=== PATIENT | male | born 1955 | race Caucasian/White ===

== ENCOUNTER 2022-10-28 05:55 | Outpatient (REF) | payer MEDICARE, SELFPAY ==
[2022-10-28 06:00] LABS: MANUAL DIFF FLAG NO
[2022-10-28 06:22] LABS: Basophils Percent Auto 0.5 % (0-2); Eosinophils Absolute Auto 0.4 X10*3/uL (0.0-0.4); Eosinophils Percent Auto 4.5 % (0-4); Hematocrit 38.3 % (42.0-52.0); Imm Gran Abs Auto 0.13 X10*3/uL (0.00-0.03); Imm Gran Pct Auto 1.6 % (0.0-0.4); Lymphocytes Absolute Auto 0.8 X10*3/uL (1.2-4.9); Lymphocytes Percent Auto 9.7 % (20-40); Mean Corpuscular HGB Conc 31.3 g/dl (31.0-36.0); Mean Corpuscular Hemoglobin 28.4 pg (27.0-33.0); Mean Corpuscular Volume 90.8 fL (80.0-98.0); Mean Platelet Volume 9.3 fL (9.4-12.4); Monocytes Absolute Auto 0.5 X10*3/uL (0.1-1.2); Monocytes Percent Auto 5.8 % (2-11); Neutrophils Absolute Auto 6.3 x10*3/uL (2.0-8.3); Neutrophils Percent Auto 77.9 % (45-73); Platelet Count 163 X10*3/uL (160-400); Red Blood Count 4.22 X10*6/uL (4.60-5.80); Red Cell Distribution Width 16.2 % (11.0-16.0); White Blood Count 8.1 X10*3/uL (4.8-10.8)
[2022-10-28 06:44] LABS: Alanine Aminotransferase 8 U/L (0-40); Albumin Level 3.2 g/dL (3.5-5.0); Alkaline Phosphatase 165 U/L (39-117); Anion Gap 17 (12-20); Aspartate Amino Transferase 17 U/L (5-37); Bilirubin Total 0.5 mg/dL (0.0-1.0); Blood Urea Nitrogen 37 mg/dL (9-16); Calcium 9.2 mg/dL (8.4-10.2); Carbon Dioxide 26 mmol/L (22-29); Chloride 97 mmol/L (96-108); Estimated Glomerular Filt Rate 14; Glucose Random 143 mg/dL (60-115); Potassium 4.8 mmol/L (3.3-5.1); Sodium 135 mmol/L (135-145); Total Protein 6.2 g/dL (6.5-8.0)
== END 2022-10-28 05:56 | disposition home or self-care (01) ==
LOC: HO.MMNH1L 05:55
PROVIDERS: Visit Provider Family Medicine
DX: Z02.2 Encounter for examination for admission to residential institution (principal)
CPT/HCPCS: 36415; 80053; 85025

== ENCOUNTER 2022-11-02 06:29 | Outpatient (REF) | payer MEDICARE, SELFPAY ==
[2022-11-02 06:18] LABS: MANUAL DIFF FLAG NO
[2022-11-02 07:08] LABS: Basophils Percent Auto 0.5 % (0-2); Eosinophils Absolute Auto 0.4 X10*3/uL (0.0-0.4); Eosinophils Percent Auto 5.3 % (0-4); Hematocrit 37.7 % (42.0-52.0); Hemoglobin 11.8 g/dl (14.0-18.0); Imm Gran Abs Auto 0.06 X10*3/uL (0.00-0.03); Imm Gran Pct Auto 0.8 % (0.0-0.4); Lymphocytes Percent Auto 13.1 % (20-40); Mean Corpuscular HGB Conc 31.3 g/dl (31.0-36.0); Mean Corpuscular Hemoglobin 28.3 pg (27.0-33.0); Mean Corpuscular Volume 90.4 fL (80.0-98.0); Mean Platelet Volume 9.3 fL (9.4-12.4); Monocytes Absolute Auto 0.5 X10*3/uL (0.1-1.2); Monocytes Percent Auto 6.6 % (2-11); Neutrophils Absolute Auto 5.7 x10*3/uL (2.0-8.3); Neutrophils Percent Auto 73.7 % (45-73); Platelet Count 177 X10*3/uL (160-400); Red Blood Count 4.17 X10*6/uL (4.60-5.80); White Blood Count 7.8 X10*3/uL (4.8-10.8)
[2022-11-02 07:49] LABS: Anion Gap 13 (12-20); Blood Urea Nitrogen 39 mg/dL (9-16); Calcium 8.7 mg/dL (8.4-10.2); Carbon Dioxide 33 mmol/L (22-29); Chloride 93 mmol/L (96-108); Estimated Glomerular Filt Rate 15; Glucose Random 57 mg/dL (60-115); Potassium 3.6 mmol/L (3.3-5.1); Sodium 135 mmol/L (135-145)
== END 2022-11-02 06:30 | disposition home or self-care (01) ==
LOC: HO.MMNH1L 06:29
PROVIDERS: Visit Provider Family Medicine
DX: Z02.2 Encounter for examination for admission to residential institution (principal)
CPT/HCPCS: 36415; 80048; 85025

== ENCOUNTER 2022-11-05 05:50 | Emergency (ER) | payer MEDICARE, SELFPAY ==
--- NOTE | ~2022-11-05 | XR_ITS ---
EXAMINATION: XR CHEST CLINICAL INFORMATION: Altered mental status COMPARISON: None TECHNIQUE: Frontal view of the chest was obtained. FINDINGS: Right internal jugular central venous catheter terminates over the right atrium. Cardiac leads overlie the chest. The lungs are well expanded. No dense consolidation. No edema or effusion. No pneumothorax. The cardiomediastinal silhouette is within normal limits. No acute osseous abnormality. XR/XR chest 1V IMPRESSION: No acute pulmonary disease.
[2022-11-05 06:00] VITALS: BP 106/70; BP 173/59; PULSE 73; PULSE 80; RESP 20; TEMP 33.3; O2SAT 100; O2SAT 95; BMI 28.2
[2022-11-05 06:00] LABS: Glucose, Whole Blood 58 mg/dL (60-115)
--- NOTE | 2022-11-05 06:11 | ED_ITS ---
HPI - Altered Mental Status General Chief Complaint: General Medical Stated Complaint: low bs Time Seen by Provider: 11/05/22 06:07 Source: EMS and RN notes reviewed Mode of arrival: EMS Limitations: altered mental status History of Present Illness HPI narrative: Patient diabetic, end-stage renal disease on dialysis, hypertension nonhealing wound on the right foot on Lantus insulin 35 units at bedtime came from skilled nursing as was found unresponsive in his bed with noticed to have blood sugar 52 was given D10 and patient became combative after then but when he came to the ER patient was back to normal no signs of seizures no fall or head injury patient had dialysis on Wednesday, and Wednesday no other active complaints no fever no cough no shortness of breath no abdominal pain no nausea vomiting on arrival patient noticed to have temperature of 91.9 degree F Related Data Allergies Allergy/AdvReac Type Severity Reaction Status Date / Time No Known Allergies Allergy Verified 11/05/22 06:12 Review of Systems Review of Systems: Yes all other systems are reviewed and are negative [facility] Social History Social History Smoked in Last 30 Days: No Use of substances other than those prescribed or required for medical reasons: No Advance Directives: Yes Advance Directives Information Provided: No Advance Directives on File: No Physical Exam ED Vital Signs: Vital Signs - 24 hr 11/05/22 06:00 11/05/22 07:00 Temperature 91.9 F L Pulse Rate 73 68 Respiratory Rate 20 16 Blood Pressure 173/59 H 143/68 H Pulse Oximetry 95 99 Oxygen Delivery Method Room Air Room Air BMI result Body Mass Index 28.2 Appearance: Alert. Oriented X2-3. No acute distress. Eyes: PERRLA, No Nystagmus ENT: Pharynx normal. Oral Mucosa moist Neck: Normal inspection. Neck supple. CVS: Normal heart rate and rhythm. Pulses normal. Respiratory: No respiratory distress. Equal air entry bilateral, no wheezing/rales/rhonchi Abdomen: Soft and nontender. Bowel sounds are present, no mass palpable, no CVA tenderness Skin: Skin warm and dry. Normal skin color. Normal skin turgor. Extremities: No lower extremity edema. No calf tenderness Neuro: Oriented X 2-3. No motor deficit. No sensory deficit.No cerebellar signs , cranial nerves II-XII intact Medical Decision Making Medical Decision Making [facility] Narrative: Patient diabetic with hyperglycemia and change in mental status etiology not very clear normal CBC count patient does have wound VAC on the right leg which does not look infected patient normal lactic acid level repeat blood sugar was [address] Ann for further evaluation disposition at this time there is no source of infection except the healing right leg wound likely patient had IV license secondary to poor oral intake Lab Data [facility] Lab Attestation statement: I reviewed the patient's lab results. 11/05/22 06:27 11/05/22 06:24 Labs: Lab Results 11/05/22 11/05/22 11/05/22 Range/Units 05:57 06:22 06:23 WBC (4.8-10.8) X10*3/uL RBC (4.60-5.80) X10*6/uL Hgb (14.0-18.0) g/dl Hct (42.0-52.0) % MCV (80.0-98.0) fL MCH (27.0-33.0) pg MCHC (31.0-36.0) g/dl RDW (11.0-16.0) % Plt Count (160-400) X10*3/uL MPV (9.4-12.4) fL Immature Gran % (Auto) (0.0-0.4) % Neut % (Auto) (45-73) % Lymph % (Auto) (20-40) % Mchenry % (Auto) (2-11) % Eos % (Auto) (0-4) % Baso % (Auto) (0-2) % Lymph # (Auto) (1.2-4.9) X10*3/uL Mchenry # (Auto) (0.1-1.2) X10*3/uL Eos # (Auto) (0.0-0.4) X10*3/uL Baso # (Auto) (0.0-0.2) X10*3/uL Abs Immat Gran (auto) (0.00-0.03) X10*3/uL Absolute Neuts (auto) (2.0-8.3) x10*3/uL Absolute Nucleated RBC (0.0-0.012) X10*3/uL Nucleated RBC % (auto) (0.0-0.2) /100WBC Sodium (135-145) mmol/L Potassium (3.3-5.1) mmol/L Chloride (96-108) mmol/L Carbon Dioxide (22-29) mmol/L Anion Gap (12-20) BUN (9-16) mg/dL Creatinine (0.5-1.4) mg/dL Estim Creat Clear Calc Estimated GFR POC Glucose 58 L* 132 H (60-115) mg/dL Random Glucose (60-115) mg/dL Lactic Acid (0.5-2.0) mmol/L Calcium (8.4-10.2) mg/dL Total Bilirubin (0.0-1.0) mg/dL AST (5-37) U/L ALT (0-40) U/L Alkaline Phosphatase (39-117) U/L Total Protein (6.5-8.0) g/dL Albumin (3.5-5.0) g/dL Ethyl Alcohol mg/dL Influenza Type A (PCR) NEGATIVE (Negative) Influenza Type B (PCR) NEGATIVE (Negative) RSV RNA Qual (PCR) NEGATIVE (Negative) SARS-CoV-2 RNA (RT-PCR) NEGATIVE (Negative) 11/05/22 11/05/22 11/05/22 Range/Units 06:24 06:26 06:27 WBC 9.3 (4.8-10.8) X10*3/uL RBC 5.31 D (4.60-5.80) X10*6/uL Hgb 15.0 D (14.0-18.0) g/dl Hct 47.6 D (42.0-52.0) % MCV 89.6 (80.0-98.0) fL MCH 28.2 (27.0-33.0) pg MCHC 31.5 (31.0-36.0) g/dl RDW 17.7 H (11.0-16.0) % Plt Count 193 (160-400) X10*3/uL MPV 8.2 L (9.4-12.4) fL Immature Gran % (Auto) 1.3 H (0.0-0.4) % Neut % (Auto) 80.4 H (45-73) % Lymph % (Auto) 9.9 L (20-40) % Mchenry % (Auto) 3.5 (2-11) % Eos % (Auto) 4.4 H (0-4) % Baso % (Auto) 0.5 (0-2) % Lymph # (Auto) 0.9 L (1.2-4.9) X10*3/uL Mchenry # (Auto) 0.3 (0.1-1.2) X10*3/uL Eos # (Auto) 0.4 (0.0-0.4) X10*3/uL Baso # (Auto) 0.1 (0.0-0.2) X10*3/uL Abs Immat Gran (auto) 0.12 H (0.00-0.03) X10*3/uL Absolute Neuts (auto) 7.5 (2.0-8.3) x10*3/uL Absolute Nucleated RBC 0.000 (0.0-0.012) X10*3/uL Nucleated RBC % (auto) 0.0 (0.0-0.2) /100WBC Sodium 132 L (135-145) mmol/L Potassium 5.6 H D (3.3-5.1) mmol/L Chloride 93 L (96-108) mmol/L Carbon Dioxide 27 (22-29) mmol/L Anion Gap 18 (12-20) BUN 50 H (9-16) mg/dL Creatinine 4.82 H* (0.5-1.4) mg/dL Estim Creat Clear Calc 14.7 Estimated GFR 12 POC Glucose (60-115) mg/dL Random Glucose 143 H (60-115) mg/dL Lactic Acid (0.5-2.0) mmol/L Calcium 10.0 D (8.4-10.2) mg/dL Total Bilirubin 0.6 (0.0-1.0) mg/dL AST 33 (5-37) U/L ALT 16 (0-40) U/L Alkaline Phosphatase 175 H (39-117) U/L Total Protein 7.7 (6.5-8.0) g/dL Albumin 4.0 (3.5-5.0) g/dL Ethyl Alcohol < 10 mg/dL Influenza Type A (PCR) (Negative) Influenza Type B (PCR) (Negative) RSV RNA Qual (PCR) (Negative) SARS-CoV-2 RNA (RT-PCR) (Negative) 11/05/22 Range/Units 06:27 WBC (4.8-10.8) X10*3/uL RBC (4.60-5.80) X10*6/uL Hgb (14.0-18.0) g/dl Hct (42.0-52.0) % MCV (80.0-98.0) fL MCH (27.0-33.0) pg MCHC (31.0-36.0) g/dl RDW (11.0-16.0) % Plt Count (160-400) X10*3/uL MPV (9.4-12.4) fL Immature Gran % (Auto) (0.0-0.4) % Neut % (Auto) (45-73) % Lymph % (Auto) (20-40) % Mchenry % (Auto) (2-11) % Eos % (Auto) (0-4) % Baso % (Auto) (0-2) % Lymph # (Auto) (1.2-4.9) X10*3/uL Mchenry # (Auto) (0.1-1.2) X10*3/uL Eos # (Auto) (0.0-0.4) X10*3/uL Baso # (Auto) (0.0-0.2) X10*3/uL Abs Immat Gran (auto) (0.00-0.03) X10*3/uL Absolute Neuts (auto) (2.0-8.3) x10*3/uL Absolute Nucleated RBC (0.0-0.012) X10*3/uL Nucleated RBC % (auto) (0.0-0.2) /100WBC Sodium (135-145) mmol/L Potassium (3.3-5.1) mmol/L Chloride (96-108) mmol/L Carbon Dioxide (22-29) mmol/L Anion Gap (12-20) BUN (9-16) mg/dL Creatinine (0.5-1.4) mg/dL Estim Creat Clear Calc Estimated GFR POC Glucose (60-115) mg/dL Random Glucose (60-115) mg/dL Lactic Acid 1.1 (0.5-2.0) mmol/L Calcium (8.4-10.2) mg/dL Total Bilirubin (0.0-1.0) mg/dL AST (5-37) U/L ALT (0-40) U/L Alkaline Phosphatase (39-117) U/L Total Protein (6.5-8.0) g/dL Albumin (3.5-5.0) g/dL Ethyl Alcohol mg/dL Influenza Type A (PCR) (Negative) Influenza Type B (PCR) (Negative) RSV RNA Qual (PCR) (Negative) SARS-CoV-2 RNA (RT-PCR) (Negative) Discharge Plan Discharge Clinical Impression: Hypoglycemia associated with type 2 diabetes mellitus, Hypothermia Patient Disposition: Still a Patient
[2022-11-05 06:33] LABS: Glucose, Whole Blood 132 mg/dL (60-115)
--- NOTE | 2022-11-05 06:35 | PC.NURSE ---
this rn assumed care of pt @ 0600. pt given 3 orange juices at this time. pt placed in bear hugger. rectal temp 91.9. blood work obtained and sent down to lab. POC rechecked 132. Dr Valverde made aware. no new orders at this time
[2022-11-05 06:36] LABS: MANUAL DIFF FLAG NO
[2022-11-05 06:41] LABS: Basophils Absolute Auto 0.1 X10*3/uL (0.0-0.2); Basophils Percent Auto 0.5 % (0-2); Eosinophils Absolute Auto 0.4 X10*3/uL (0.0-0.4); Eosinophils Percent Auto 4.4 % (0-4); Hematocrit 47.6 % (42.0-52.0); Imm Gran Abs Auto 0.12 X10*3/uL (0.00-0.03); Imm Gran Pct Auto 1.3 % (0.0-0.4); Lymphocytes Absolute Auto 0.9 X10*3/uL (1.2-4.9); Lymphocytes Percent Auto 9.9 % (20-40); Mean Corpuscular HGB Conc 31.5 g/dl (31.0-36.0); Mean Corpuscular Hemoglobin 28.2 pg (27.0-33.0); Mean Corpuscular Volume 89.6 fL (80.0-98.0); Mean Platelet Volume 8.2 fL (9.4-12.4); Monocytes Absolute Auto 0.3 X10*3/uL (0.1-1.2); Monocytes Percent Auto 3.5 % (2-11); Neutrophils Absolute Auto 7.5 x10*3/uL (2.0-8.3); Neutrophils Percent Auto 80.4 % (45-73); Platelet Count 193 X10*3/uL (160-400); Red Blood Count 5.31 X10*6/uL (4.60-5.80); Red Cell Distribution Width 17.7 % (11.0-16.0); White Blood Count 9.3 X10*3/uL (4.8-10.8)
[2022-11-05 06:45] LABS: Lactic Acid 1.1 mmol/L (0.5-2.0)
[2022-11-05 07:00] VITALS: BP 143/68; PULSE 68; RESP 16; O2SAT 99
[2022-11-05 07:10] LABS: Influenza A PCR NEGATIVE (Negative); Influenza B PCR NEGATIVE (Negative); Resp Syncy Virus RNA Qual PCR NEGATIVE (Negative); SARS COV2 PCR INHOUSE NEGATIVE (Negative)
--- OUTSIDE RECORDS SUMMARY | 2022-11-05 07:15 | XMS_ITS | Continuity of Care Document ---
:1955 Author Organization [facility] Address [address] [place] [address]- Care Team Providers Name Role Phone Not on Staff, PCP Primary Care Physician Unavailable Encounter [facility] Date(s): 06/15/22 - 08/28/22 [facility] [address] [place], [place] [address] Attending Physician: Nakul KUMAR, Torsten Patrick Admitting Physician: Nakul KUMAR, Torsten Patrick Referring Physician: Nakul KUMAR, Torsten Patrick Allergies, Adverse Reactions, Alerts No Known Medication Allergies Immunizations Given and Recorded Vaccine Date Status Refusal Reason SARS-CoV-2 (COVID-19) mRNA-1273 vaccine 09/29/21 Recorded SARS-CoV-2 (COVID-19) mRNA-1273 vaccine 03/10/21 Recorded SARS-CoV-2 (COVID-19) mRNA-1273 vaccine 02/10/21 Recorded influenza virus vaccine, inactivated 07/20/19 Recorded influenza virus vaccine, inactivated 08/16/17 Recorded Medications allopurinol 100 mg oral tablet 1 tab, By Mouth, 2 times a day Start Date: 02/26/21 Status: OrderedAspirin Enteric Coated 81 mg oral delayed release tablet 1 tablet = 81 mg, By Mouth, Daily in AM, TAKE 1 TABLET BY MOUTH ONCE A DAY Start Date: 02/26/21 Status: Orderedatorvastatin 20 mg oral tablet 1 tablet = 20 mg, By Mouth, Daily at bedtime Start Date: 02/26/21 Status: OrderedBasaglar KwikPen 100 units/mL subcutaneous solution INJECT 35 UNITS SUBCUTANEOUSLY ONCE A DAY 5 am Start Date: 02/26/21 Status: Orderedbumetanide 2 mg oral tablet See Instructions, TAKE 1 TABLET BY MOUTH TWICE A DAY, # 180 tablet, 1 Refills, Maintenance, 08/13/2216:15:00 EDT, [id number], 168, cm, 06/25/22 15:37:00 EDT, Height, 90.8, kg, 04/27/22 16:09:00 EDT, Dry Weight Start Date: 08/13/22 Status: Orderedcalcium acetate 667 mg oral capsule See Instructions, TAKE 1 CAPSULE BY MOUTH 3 TIMES A DAY WITH EACH MEAL, # 270 capsule, 1 Refills, [id number], 167, cm, 03/18/22 8:43:00 EDT, Height, 90.8, kg, 03/18/22 8:43:00 EDT, Dry Weight Start Date: 04/06/22 Status: Orderedcarvedilol 25 mg oral tablet 25 mg, 1, tablet, By Mouth, 2 times a day Start Date: 02/26/21 Status: Orderedglimepiride 4 mg oral tablet 2 tablet = 8 mg, By Mouth, Daily in AM Start Date: 02/26/21 Status: OrderedPlavix 75 mg oral tablet 75 mg, 1, tablet, By Mouth, Daily, # 30 tablet, Refills 2, Tot. Refills 2, Maintenance, 05/02/22 8:00:00 EDT, Route to Pharmacy Electronically, [facility]/pharmacy #[id number], Partial fill upon patient request if the prescription is for a schedule II opioid drug.... Start Date: 05/02/22 Stop Date: 07/31/22 Status: Orderedtamsulosin 0.4 mg oral capsule 0.4 mg, 1, capsule, By Mouth, Daily, Refills 0, Maintenance, 04/21/22 11:46:00 EDT, Partial fill upon patient request if the prescription is for a schedule II opioid drug. Start Date: 04/21/22 Status: Ordered Problem List Condition Confirmation Course Effective Dates Status Health Stat us Informant End-stage renal Confirmed Active disease1 Obese class I Confirmed Active Peripheral Confirmed Active vascular disease 1ARA Deidra ARELLANO,KHADAR,SAT Patient Care team information Care Team PersonnelName: Sharlene Castorena RN Position: [facility] RN Member Role: Primary Care Nurse Name: Lalito Arteaga RN Position: [facility] RN Member Role: Primary Care Nurse Name: Chucho Navarro MD Position: [facility] Physician (General Medicine) Member Role: Lifetime Consulting Physician Address: Address: [address] [place] [address], [address] Name: Jaz Milligan Position: [facility] Outreach Member Role: Lifetime Consulting Physician Name: Eileen CORTES, Ace Le Position: [facility] Associate Professional Member Role: Lifetime Consulting Provider Address: Address: [address] [place] [address] Name: Not on Staff, PCP Position: [facility] Physician (General Medicine) Member Role: PCP Name: Ruby Negrete Position: [facility] Outreach Member Role: Lifetime Consulting Physician Name: Sunil Mosher MD Position: [facility] Renal MD Member Role: Lifetime Consulting Physician Address: Address: [address] [place] [address] [address] [facility], [place] [address]- Care Team Related PersonsName: TYLER IRIZARRY Address: home [address] [place] [address] Name: TERESA LIM Address: home [address] [place] [address]
--- OUTSIDE RECORDS SUMMARY | 2022-11-05 07:15 | XMS_ITS | Continuity of Care Document ---
:1955 Author Organization [facility] Address [address] [place] [address]- Care Team Providers Name Role Phone Not on Staff, PCP Primary Care Physician Unavailable Encounter [facility] Date(s): 06/04/22 - 06/11/22 [facility] [address] [place], [place] [address] Attending Physician: Torsten Mota MD Admitting Physician: Torsten Mota MD Allergies, Adverse Reactions, Alerts No Known Medication [...] 02/26/21 Status: Orderedbumetanide 2 mg oral tablet 1 tablet = 2 mg, By Mouth, 2 times a day, 0 Refills, Maintenance, 09/01/21 16:37:00 EST, Partial fill upon patient request if the prescription is for a schedule II opioid drug. Start Date: 09/01/21 Status: Orderedcalcium acetate 667 mg oral capsule See Instructions, TAKE 1 CAPSULE BY MOUTH 3 TIMES A DAY WITH EACH MEAL, # 270 capsule, 1 Refills, [id number], 167, cm, 03/18/22 8:43:00 EDT, Height, 90.8, [...] 05/02/22 8:00:00 EDT, Route to Pharmacy Electronically, [facility]/pharmacy #[id number], Partial fill upon patient request if the prescription is for a schedule II opioid drug.... Start Date: 05/02/22 Stop Date: 07/31/22 Status: OrderedSenexon-S 50 mg-8.6 mg oral tablet 2 tablet, By Mouth, Daily at bedtime, 0 Refills, Maintenance, 04/21/22 11:48:00 EDT, Partial fill upon patient request if the prescription is for a schedule II opioid drug. Start Date: 04/21/22 Status: Orderedtamsulosin 0.4 mg oral capsule 0.4 mg, 1, capsule, By Mouth, Daily, Refills 0, Maintenance, 04/21/22 11:46:00 EDT, Partial fill upon patient request if the prescription is for a schedule II opioid drug. Start Date: 04/21/22 Status: Ordered Problem List Condition Effective Dates Status Health Status Informant End-stage renal disease(Confirmed)1 Active Obese class I(Confirmed) Active Peripheral vascular disease(Confirmed) Active 1ARA Deidra TU,TH,SAT Vital Signs Most recent to oldest [Reference Range]: 1 Height 168 cm (06/04/22 3:42 PM) Weight 88.5 kg (06/04/22 3:42 PM) Pulse Rate [55-90 bpm] 58 bpm (06/04/22 3:42 PM) Body Mass Index [18.5-24.99] 31.36 *>HHI* (06/04/22 3:42 PM) Blood Pressure [90-138/55-84 mm Hg] 112/60 mm Hg (06/04/22 3:42 PM) Blood pressure sites Arm, right (06/04/22 3:42 PM) Weight Obtained Via Patient/family stated (06/04/22 3:42 PM) Care Team PersonnelName: Not on Staff, PCP
--- OUTSIDE RECORDS SUMMARY | 2022-11-05 07:15 | XMS_ITS | Continuity of Care Document ---
:1955 Author Organization [facility] Address [address] [place] [address]- Care Team Providers Name Role Phone Guillermina KUMAR, Chay Primary Care Physician Unavailable [place] [facility] Date(s): 09/09/21 - 10/09/21 [facility] [address] [place] [address]- Allergies, Adverse Reactions, Alerts No Known Medication Allergies Medications allopurinol 100 mg oral tablet 1 [...] II opioid drug. Start Date: 09/01/21 Status: Orderedcarvedilol 25 mg oral tablet 25 mg, 1, tablet, By Mouth, 2 times a day Start Date: 02/26/21 Status: Orderedglimepiride 4 mg oral tablet 2 tablet = 8 mg, By Mouth, Daily, TAKE 1 TABLET BY MOUTH 5am Start Date: 02/26/21 Status: OrderedmetOLazone 10 mg oral tablet 1 tablet = 10 mg, By Mouth, Daily, # 30 tablet, 0 Refills, Maintenance, 09/01/21 16:36:00 EST, Tablet, Partial fill upon patient request if the prescription is for a schedule II opioid drug. Start Date: 09/01/21 Status: OrderedPlavix 75 mg oral tablet 75 mg, 1, tablet, By Mouth, Daily, # 30 tablet, Refills 0, Tot. Refills 0, Maintenance, 03/28/21 9:22:00 EDT, Route to Pharmacy Electronically, [facility], 167.64, cm, 03/28/21 6:14:00 EDT, Height, 99.7, kg, 03/28/21 6:14:00 EDT, Dry Weight Start Date: 03/28/21 Status: OrderedSlow-Mag 119 mg-71.5 mg oral delayed release tablet 2 tablet, By Mouth, 2 times a day, 0 Refills, Maintenance, 09/01/21 16:38:00 EST, Partial fill upon patient request if the prescription is for a schedule II opioid drug. Start Date: 09/01/21 Status: OrderedVitamin C 500 mg oral tablet 1 tablet = 500 mg, By Mouth, Daily in AM, # 30 tablet, 0 Refills, Maintenance, 02/26/21 16:36:00 EDT, Tablet, Partial fill upon patient request if the prescription is for a schedule II opioid drug. Start Date: 02/26/21 Status: OrderedVitamin D2 2000 intl units oral capsule 1 capsule = 2,000 International_Units, By Mouth, Daily, with food, # 60 capsule, 0 Refills, Maintenance, 04/09/21 15:09:00 EDT, Capsule, Partial fill upon patient request if the prescription is for a schedule II opioid drug. Start Date: 04/09/21 Status: Ordered
--- OUTSIDE RECORDS SUMMARY | 2022-11-05 07:16 | XMS_ITS | Continuity of Care Document ---
:1955 Author Organization [facility] Address [address] [place] [address]- Care Team Providers Name Role Phone Not on Staff, PCP Primary Care Physician Unavailable Encounter [facility] Date(s): 04/08/22 - 04/15/22 [facility] [address] [place], [place] [address] Attending Physician: Nakul KUMAR, Torsten Patrick Admitting Physician: Torsten Mota MD Referring Physician: Not on Staff, Referring MD Allergies, Adverse Reactions, Alerts No Known [...] EACH MEAL, # 270 capsule, 1 Refills, [facility], 167, cm, 03/18/22 8:43:00 EDT, Height, 90.8, kg, 03/18/22 8:43:00 EDT, Dry Weight Start Date: 04/06/22 Status: Orderedcarvedilol 25 mg oral tablet 25 mg, 1, tablet, By Mouth, 2 times a day Start Date: 02/26/21 Status: Orderedglimepiride 4 mg oral tablet 2 tablet = 8 mg, By Mouth, Daily in AM Start Date: 02/26/21 Status: OrderedVitamin D2 2000 intl units oral capsule 1 capsule = 2,000 International_Units, By Mouth, Daily, with food, # 60 capsule, 0 Refills, Maintenance, 04/09/21 15:09:00 EDT, Capsule, Partial fill upon patient request if the prescription is for a schedule II opioid drug. Start Date: 04/09/21 Status: Ordered Problem List Condition Effective Dates Status Health Status Informant End-stage renal disease(Confirmed)1 Active Obese class I(Confirmed) Active 1ARA Deidra TU,TH,SAT Vital Signs Most recent to oldest [Reference Range]: 1 Height 167 cm (04/08/22 11:18 AM) Weight 94.9 kg (04/08/22 11:18 AM) Pulse Rate [55-90 bpm] 72 bpm (04/08/22 11:18 AM) Body Mass Index [18.5-24.99] 34.03 *>HHI* (04/08/22 11:18 AM) Blood Pressure [90-138/55-84 mm Hg] 106/70 mm Hg (04/08/22 11:18 AM) Blood pressure sites Arm, left (04/08/22 11:18 AM) Weight Obtained Via Patient/family stated (04/08/22 11:18 AM)
--- OUTSIDE RECORDS SUMMARY | 2022-11-05 07:16 | XMS_ITS | Continuity of Care Document ---
:1955 Author Organization [facility] Address [address] [place] [address]- Care Team Providers Name Role Phone Not on Staff, PCP Primary Care Physician Unavailable Encounter [facility] Date(s): 02/06/22 - 02/06/[address] [address] Discharge Disposition: A-D/C Home Attending Physician: Nakul KUMAR, Torsten Patrick Admitting Physician: Nakul KUMAR, Torsten Patrick Referring Physician: Torsten Mota MD Allergies, Adverse Reactions, Alerts No Known Medication Allergies Medications acetaminophen 325 mg oral tablet 650 mg, By Mouth, Every 4 hours, PRN, for 5 days, not to exceed 4000 mg/day, # 30 tablet, Refills 0,Tot. Refills 0, Acute 02/11/22 9:52:00 EDT, Pain , Mild, 02/06/22 9:52:00 EDT, Route to Pharmacy Electronically, [facility], Partial damien... Start Date: 02/06/22 Stop Date: 02/11/22 Status: Orderedallopurinol 100 mg oral tablet 1 tab, By [...] Orderedcarvedilol 25 mg oral tablet 25 mg, Tablet, By Mouth, Once, Pre-op, STAT, 02/06/22 7:04:00 EDT, Stop date 02/06/22 7:04:00 EDT Start Date: 02/06/22 Stop Date: 02/06/22 Status: Completedcarvedilol 25 mg oral tablet 25 mg, 1, tablet, By Mouth, 2 times a day Start Date: 02/26/21 Status: Orderedglimepiride 4 mg oral tablet 2 tablet = 8 mg, By Mouth, Daily in AM Start Date: 02/26/21 Status: OrderedoxyCODONE 5 mg oral tablet 5 mg, 1, tablet, By Mouth, Every 6 hours, PRN, for 2 days, do not drive while taking narcotic pain medications, # 8 tablet, Refills 0, Tot. Refills 0, Acute 02/08/22 9:52:00 EDT, Pain , Moderate, 02/06/22 9:52:00 EDT, Route to Pharmacy Electronically,... Start Date: 02/06/22 Stop Date: 02/08/22 Status: OrderedSlow-Mag 119 mg-71.5 mg oral delayed release tablet 2 tablet, By Mouth, 2 times a day, 0 Refills, Maintenance, 09/01/21 16:38:00 EST, Partial fill upon patient request if the prescription is for a schedule II opioid drug. Start Date: 09/01/21 Status: OrderedVitamin D2 2000 intl units oral capsule 1 capsule = 2,000 International_Units, By Mouth, Daily, with food, # 60 capsule, 0 Refills, Maintenance, 04/09/21 15:09:00 EDT, Capsule, Partial fill upon patient request if the prescription is for a schedule II opioid drug. Start Date: 04/09/21 Status: Ordered Problem List Condition Effective Dates Status Health Status Informant Obese class I(Confirmed) Active Vital Signs Most recent to oldest 1 2 3 [Reference Range]: Height 167 cm 167 cm 167 cm (02/06/22 6:18 AM) (02/03/22 4:15 PM) (12/03/21 5:2 9 PM) Weight 92.4 kg 91.1 kg (02/06/22 6:18 AM) (02/03/22 4:15 PM) Oxygen Saturation 98 % 98 % 97 % [94-100 %] (02/06/22 11:00 AM) (02/06/22 10:45 AM) (02/06/22 1 0:30 AM) Pulse Rate [55-90 bpm] 72 bpm 72 bpm (02/06/22 7:06 AM) (02/06/22 6:18 AM) Body Mass Index 33.13 32.67 [18.5-24.99] *>HHI* *>HHI* (02/06/22 6:18 AM) (02/03/22 4:15 PM) Blood Pressure 117/90 mm Hg 115/80 mm Hg 111/69 mm Hg [90-138/55-84 mm Hg] (02/06/22 11:00 AM) (02/06/22 10:45 AM) (02/06 10:30 AM) Respiratory Rate [16-30 17 br/min 16 br/min 21 br/mi n br/min] (02/06/22 11:00 AM) (02/06/22 10:45 AM) (02/06/22 1 0:30 AM) Temperature [96.8-100.4 97.1 DegF 97.8 DegF 97.9 Deg F DegF] (02/06/22 11:00 AM) (02/06/22 10:00 AM) (02/06/22 6 :18 AM) Liters per Minute 4 L/min (02/06/22 10:00 AM) Mode of Delivery Room air Room air Simple face mas k (Oxygen) (02/06/22 11:00 AM) (02/06/22 10:30 AM) (02/06/22 1 0:00 AM) Blood pressure sites Arm, right Arm, right Arm, right (02/06/22 11:00 AM) (02/06/22 10:00 AM) (02/06/22 6 :18 AM) Temperature Route Temporal Temporal Temporal (02/06/22 11:00 AM) (02/06/22 10:00 AM) (02/06/22 6 :18 AM) Dry Weight 91.1 kg (02/03/22 4:15 PM) Weight Obtained Via Standing scale Patient/family stated (02/06/22 6:18 AM) (02/03/22 4:15 PM) Dry Weight Obtained Via Patient/family stated (02/03/22 4:15 PM)
--- OUTSIDE RECORDS SUMMARY | 2022-11-05 07:16 | XMS_ITS | Continuity of Care Document ---
:1955 Author Organization [facility] Address [address] [place] [address]- Care Team Providers Name Role Phone Not on Staff, PCP Primary Care Physician Unavailable Encounter [facility] Date(s): 06/25/22 - 07/02/22 [facility] [address] [place] [address]- Attending Physician: Torsten Mota MD Admitting Physician: [...] EACH MEAL, # 270 capsule, 1 Refills, [id number], 167, cm, 03/18/22 8:43:00 EDT, Height, 90.8, [...] 8:00:00 EDT, Route to Pharmacy Electronically, [facility]/pharmacy #[id number], Partial fill upon patient request if [...] oldest [Reference Range]: 1 Height 168 cm (06/25/22 3:37 PM) Weight 88.45 kg (06/25/22 3:37 PM) Oxygen Saturation [94-100 %] 97 % (06/25/22 3:37 PM) Pulse Rate [55-90 bpm] 72 bpm (06/25/22 3:37 PM) Body Mass Index [18.5-24.99] 31.34 *>HHI* (06/25/22 3:37 PM) Blood Pressure [90-138/55-84 mm Hg] 120/72 mm Hg (06/25/22 3:37 PM) Mode of Delivery (Oxygen) Room air (06/25/22 3:37 PM) Blood pressure sites Arm, right (06/25/22 3:37 PM) Weight Obtained Via Patient/family stated (06/25/22 3:37 PM) Care Team PersonnelName: Not on Staff, PCP
--- OUTSIDE RECORDS SUMMARY | 2022-11-05 07:16 | XMS_ITS | Continuity of Care Document ---
:1955 Author Organization [facility] Address [address] [place] [address]- Care Team Providers Name Role Phone Not on Staff, PCP Primary Care Physician Unavailable Encounter [facility] [place] Date(s): 08/21/21 - 08/28/21 [facility] [address] [place] [address]- Attending Physician: Nakul KUMAR, Torsten Patrick Admitting Physician: Nakul KUMAR, Torsten Patrick Referring Physician: Chay Sarmiento MD Allergies, Adverse Reactions, Alerts No Known Medication Allergies Medications allopurinol 100 mg oral tablet 1 tab, By Mouth, 2 times a day Start Date: 02/26/21 Status: OrderedamLODIPine 5 mg oral tablet Daily in AM, TAKE 1 TABLET BY MOUTH EVERY DAY Start Date: 02/26/21 Status: OrderedAspirin Enteric Coated 81 mg oral delayed release tablet Daily in AM, TAKE 1 TABLET BY MOUTH ONCE A DAY Start Date: 02/26/21 Status: Orderedatorvastatin 20 mg oral tablet TAKE 1 TABLET BY MOUTH EVERYDAY AT BEDTIME Start Date: 02/26/21 Status: OrderedBasaglar KwikPen 100 units/mL subcutaneous solution INJECT 35 UNITS SUBCUTANEOUSLY ONCE A DAY 5 am Start Date: 02/26/21 Status: Orderedcarvedilol 25 mg oral tablet TAKE 1 TABLET BY MOUTH TWICE A DAY Start Date: 02/26/21 Status: Orderedglimepiride 4 mg oral tablet TAKE 1 TABLET BY MOUTH 5am Start Date: 02/26/21 Status: OrderedPlavix 75 mg oral tablet 75 mg, 1, tablet, By Mouth, Daily, # 30 tablet, Refills 0, Tot. Refills 0, Maintenance, 03/28/21 9:22:00 EDT, Route to Pharmacy Electronically, [facility], 066.64, [place], 03/28/21 6:14:00 EDT, Height, 99.7, kg, 03/28/21 6:14:00 EDT, Dry Weight Start Date: 03/28/21 Status: OrderedSlow-Mag 119 mg-71.5 mg oral delayed release tablet TAKE 1 TABLET BY MOUTH THREE TIMES A DAY Start Date: 02/26/21 Status: Orderedtorsemide 20 mg oral tablet TAKE 4 TABLETS BY MOUTH TWICE A DAY Start Date: 02/26/21 Status: OrderedVitamin C 500 mg oral tablet [...]
--- OUTSIDE RECORDS SUMMARY | 2022-11-05 07:16 | XMS_ITS | Continuity of Care Document ---
:1955 Author Organization [facility] Address [address] [place] [address]- Care Team Providers Name Role Phone Not on Staff, PCP Primary Care Physician Unavailable Encounter [facility] [place] Date(s): 10/29/21 - 11/28/21 [facility] [address] [place] [address]- Attending Physician: Jewell Mckinney Admitting Physician: Jewell Mckinney Referring Physician: Jewell Mckinney Allergies, Adverse Reactions, Alerts No Known Medication [...] 03/28/21 9:22:00 EDT, Route to Pharmacy Electronically, [facility], 167.64, cm, 03/28/21 6:14:00 [...]
--- OUTSIDE RECORDS SUMMARY | 2022-11-05 07:16 | XMS_ITS | Continuity of Care Document ---
:1955 Author Organization [facility] Address [address] [place] [address]- Care Team Providers Name Role Phone Not on Staff, PCP Primary Care Physician Unavailable Encounter [facility] [place] Date(s): 01/12/22 - 02/11/22 [facility] [address] [place] [address]- Allergies, Adverse Reactions, Alerts No Known Medication [...] Daily in AM Start Date: 02/26/21 Status: OrderedSlow-Mag 119 mg-71.5 mg oral delayed [...]
--- OUTSIDE RECORDS SUMMARY | 2022-11-05 07:16 | XMS_ITS | Continuity of Care Document ---
:1955 Author Organization [facility] Address [address] [place] [address]- Care Team Providers Name Role Phone Not on Staff, PCP Primary Care Physician Unavailable Encounter [facility] [place] Date(s): 04/27/22 - 05/05/[address] [address] Discharge Disposition: A-D/C Home Attending [...] EACH MEAL, # 270 capsule, 1 Refills, [id number], 167, cm, 03/18/22 8:43:00 EDT, Height, 90.8, kg, 03/18/22 8:43:00 EDT, Dry Weight Start Date: 04/06/22 Status: Orderedcarvedilol 25 mg oral tablet 25 mg, Tablet, By Mouth, 05/05/22 9:00:00 EDT Start Date: 05/05/22 Stop Date: 05/05/22 Status: Completedcarvedilol 25 mg oral tablet 25 mg, 1, tablet, By Mouth, 2 times a day Start Date: 02/26/21 Status: Orderedglimepiride 4 mg oral tablet 2 tablet = 8 mg, By Mouth, Daily in AM Start Date: 02/26/21 Status: OrderedoxyCODONE 5 mg oral tablet 5 mg, Tablet, By Mouth, Every 4 hours, PRN for Pain , Severe, Routine, 05/04/22 14:27:00 EDT Start Date: 05/04/22 Stop Date: 05/11/22 Status: OrderedoxyCODONE 5 mg oral tablet 5 mg, 1, tablet, By Mouth, Every 6 hours, PRN, for 5 days, # 20 tablet, Refills 0, Tot. Refills 0, Acute 05/07/22 8:00:00 EDT, as needed for pain, 05/02/22 8:00:00 EDT, Route to Pharmacy Electronically, [id number], Partial fill upon patient re... Start Date: 05/02/22 Stop Date: 05/07/22 Status: OrderedPlavix 75 mg oral tablet 75 mg, 1, tablet, By Mouth, Daily, # 30 tablet, Refills 2, Tot. 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 Ligation of AV graft and ligation of previously created arteriovenous fistula. Right lower extremity angiography. 04/27/22 Completed Popliteal artery recanalization and angioplasty 3.5 mm serrated balloon and 3 mm angioplasty of AT artery. Vital Signs Most recent to oldest 1 2 3 [Reference Range]: Height 168 cm 168 cm 168 cm (05/05/22 12:31 PM) (05/05/22 11:24 AM) (05/05/22 3 :42 AM) Weight 93.8 kg 93.8 kg 92.4 kg (04/27/22 4:06 PM) (04/27/22 3:54 PM) (04/27/22 6:1 3 AM) Oxygen Saturation [94-100 %] 97 % 99 % 98 % (05/05/22 12:31 PM) (05/05/22 11:24 AM) (05/05/22 3 :42 AM) Pulse Rate [55-90 bpm] 69 bpm 70 bpm 70 bpm (05/05/22 12:31 PM) (05/05/22 11:24 AM) (05/05/22 1 1:20 AM) Body Mass Index [18.5-24.99] 33.23 32.74 *>HHI* *>HHI* (04/27/22 4:06 PM) (04/27/22 6:13 AM) Blood Pressure [90-138/55-84 138/76 mm Hg 148/84 mm Hg 148 /74 mm Hg mm Hg] (05/05/22 12:31 PM) *H* *H* (05/05/22 11:24 AM) (05/05/22 11:2 0 AM) Respiratory Rate [16-30 18 br/min 18 br/min 19 br/mi n br/min] (05/05/22 12:31 PM) (05/05/22 11:24 AM) (05/05/22 1 1:20 AM) Temperature [96.8-100.4 97.4 DegF 97.8 DegF 97.5 Deg F DegF] (05/05/22 12:31 PM) (05/05/22 11:24 AM) (05/05/22 3 :42 AM) Liters per Minute 3 L/min 3 L/min 3 L/min (04/28/22 4:13 AM) (04/27/22 11:36 PM) (04/27/22 7: 51 PM) Mode of Delivery (Oxygen) Room air Room air Room a ir (05/05/22 12:31 PM) (05/05/22 11:24 AM) (05/05/22 3 :42 AM) Blood pressure sites Arm, right Arm, right Arm, right (05/05/22 12:31 PM) (05/05/22 11:24 AM) (05/05/22 3 :42 AM) Temperature Route Oral Oral Oral (05/05/22 12:31 PM) (05/05/22 11:24 AM) (05/05/22 3 :42 AM) Dry Weight 90.8 kg (04/27/22 4:06 PM) Weight Obtained Via Standing scale (04/27/22 6:13 AM)
--- OUTSIDE RECORDS SUMMARY | 2022-11-05 07:16 | XMS_ITS | Continuity of Care Document ---
:1955 Author Organization [facility] Address [address] [place] [address]- Care Team Providers Name Role Phone Not on Staff, PCP Primary Care Physician Unavailable Encounter [facility] [place] Date(s): 07/29/22 - 08/28/22 [facility] [address] [place], [place] [address] Attending Physician: Jewell Mckinney Admitting Physician: Jewell [...] 180 tablet, 1 Refills, Maintenance, 08/13/2216:15:00 EDT, [id number], 168, cm, 06/25/22 15:37:00 EDT, Height, 90.8, kg, 04/27/22 16:09:00 EDT, Dry Weight Start Date: 08/13/22 Status: Orderedcalcium acetate 667 mg oral capsule See Instructions, TAKE 1 CAPSULE BY MOUTH 3 TIMES A DAY WITH EACH MEAL, # 270 capsule, 1 Refills, [id number], 167, cm, 03/18/22 8:43:00 EDT, Height, 90.8, [...] 05/02/22 8:00:00 EDT, Route to Pharmacy Electronically, [facility]acy #[id number], Partial fill upon patient request [...] Peripheral Confirmed Active vascular disease 1ARA Deidra ARELLANO,TH,SAT Patient Care team information Care Team PersonnelName: Sharlene Castorena RN Position: [facility] RN Member Role: Primary Care Nurse Name: Lalito Arteaga RN Position: [facility] RN Member Role: Primary Care Nurse Name: Chucho Navarro MD Position: [facility] Physician (General Medicine) Member Role: Lifetime Consulting Physician Address: Address: [address] [place] [address], [address] Name: Jaz Milligan Position: [facility] Outreach Member Role: Lifetime Consulting Physician Name: Eileen CORTES, Ace Le Position: [facility] Associate Professional Member Role: Lifetime Consulting Provider Address: Address: [address] [place] [address]- Name: Not on Staff, PCP Position: [facility] Physician (General Medicine) Member Role: PCP Name: Ruby Negrete Position: [facility] Outreach Member Role: Lifetime Consulting Physician Name: Sunil Mosher MD Position: [facility] Renal MD Member Role: Lifetime Consulting Physician Address: Address: [address] [place] [address] [address] [facility], [place] [address]- Care Team Related PersonsName: JUAN CTYLER BARTH Address: home [address] [place] [address] Name: TERESA LIM Address: home [address] [place] [address]
--- OUTSIDE RECORDS SUMMARY | 2022-11-05 07:16 | XMS_ITS | Continuity of Care Document ---
:1955 Author Organization [facility] Address [address] [place] [address]- Care Team Providers Name Role Phone Not on Staff, PCP Primary Care Physician Unavailable [place] [facility] [facility] [place]18[place] - 03/25/22 [facility] [address] [place], [place] [address] Attending Physician: Adarsh KEYS, Jacqueline Gorman Admitting Physician: Adarsh KEYS, Jacqueline Gorman Allergies, Adverse Reactions, Alerts No Known Medication [...] Active Vital Signs Most recent to oldest [Reference Range]: 1 Height 167 cm (03/18/22 8:43 AM) Weight 90.8 kg (03/18/22 8:43 AM) Oxygen Saturation [94-100 %] 94 % (03/18/22 8:43 AM) Pulse Rate [55-90 bpm] 78 bpm (03/18/22 8:43 AM) Body Mass Index [18.5-24.99] 32.56 *>HHI* (03/18/22 8:43 AM) Blood Pressure [90-138/55-84 mm Hg] 124/66 mm Hg (03/18/22 8:43 AM) Mode of Delivery (Oxygen) Room air (03/18/22 8:43 AM) Blood pressure sites Arm, right (03/18/22 8:43 AM) Dry Weight 90.8 kg (03/18/22 8:43 AM) Weight Obtained Via Patient/family stated (03/18/22 8:43 AM) Dry Weight Obtained Via Patient/family stated (03/18/22 8:43 AM)
--- OUTSIDE RECORDS SUMMARY | 2022-11-05 07:16 | XMS_ITS | Continuity of Care Document ---
:1955 Author Organization [facility] Address [address] [place] [address]- Care Team Providers Name Role Phone Not on Staff, PCP Primary Care Physician Unavailable [place] [facility] [place]): 04/21/22 - 04/22/[address] [address]- Encounter Diagnosis Hypoglycemia (Final) - 04/21/22 Hypothermia (Final) - 04/21/22 Discharge Disposition: A-D/C Home Attending Physician: Stalin Mora MD Admitting Physician: Stalin Mora MD Referring Physician: Not on Staff, Referring [...] EACH MEAL, # 270 capsule, 1 Refills, [id number], 167, cm, 03/18/22 8:43:00 EDT, Height, 90.8, kg, 03/18/22 8:43:00 EDT, Dry Weight Start Date: 04/06/22 Status: Orderedcarvedilol 25 mg oral tablet 25 mg, 1, tablet, By Mouth, 2 times a day Start Date: 02/26/21 Status: Orderedglimepiride 4 mg oral tablet 2 tablet = 8 mg, By Mouth, Daily in AM Start Date: 02/26/21 Status: OrderedSenexon-S 50 mg-8.6 mg oral tablet [...] Obese class I(Confirmed) Active 1ARA Deidra TU,TH,SAT Results Radiology Reports Exam Date Time Procedure Performing Provider Status 04/22/22 1:24 AM Chest 2 Views Frontal and Lat Margaret Conn; Au th (Verified) Notes:(Chest 2 Views Frontal and Lat) Reason For Exam: Shortness of Breath, Fever;Other:RESULT: Chest 2 Views Frontal and Lat Chest 2 Views Frontal and Lat HISTORY: Shortness of breath/fever. COMPARISON: None available FINDINGS: LINES AND TUBES: Right internal jugular vein approach tunneled central venous catheter with tip in the right atrium. LUNGS AND PLEURA: Right posterior lower lobe consolidation. Trace effusion along the right major fissure. No pneumothorax. HEART, MEDIASTINUM AND JOSE LUIS: Mild prominence of the cardiac silhouette. Normal upper mediastinal and hilar contour. BONES AND SOFT TISSUES: Degenerative changes of the spine. IMPRESSION: Right lower lobe pneumonia. Small right pleural effusion. I have personally reviewed the images and I agree with this report. WSN: [id number] Ordering Physician: Criss Sanders Dictated By: Karri KUMAR, Cristo Grider Dictated Date/Time: 04/22/22 8:52 am Reviewed By: Barron Rojo MD Signed By: Barron Rojo MD Signed Date/Time: 04/22/22 8:57 am Transcribed By: ED Transcribed Date/Time: 04/22/22 8:07 am Vital Signs Most recent to oldest 1 2 3 [Reference Range]: Oxygen Saturation [94-100 %] 93 % 100 % 98 % *L* (04/21/22 11:45 PM) (04/21/22 10:29 PM) (04/22/22 4:49 AM) Pulse Rate [55-90 bpm] 71 bpm 68 bpm 63 bpm (04/22/22 4:49 AM) (04/21/22 11:45 PM) (04/21/22 10:29 PM) Blood Pressure [90-138/55-84 mm 119/86 mm Hg 109/70 mm Hg 120/69 mm Hg Hg] (04/22/22 4:49 AM) (04/21/22 11:45 PM) (04/21/22 10:29 PM) Respiratory Rate [16-30 br/min] 13 br/min 15 br/min 16 br/min *L* *L* (04/21/22 10:29 PM ) (04/22/22 4:49 AM) (04/21/22 11:45 PM) Temperature [96.8-100.4 DegF] 97.5 DegF 94.3 DegF (04/21/22 11:45 PM) *L* (04/21/22 10:30 PM) Mode of Delivery (Oxygen) Room air Room air Room a ir (04/22/22 4:49 AM) (04/21/22 11:45 PM) (04/21/22 10:29 PM) Blood pressure sites Arm, right Arm, right Arm, right (04/22/22 4:49 AM) (04/21/22 11:45 PM) (04/21/22 10:29 PM) Temperature Route Oral Rectal (04/21/22 11:45 PM) (04/21/22 10:30 PM)
--- OUTSIDE RECORDS SUMMARY | 2022-11-05 07:16 | XMS_ITS | Continuity of Care Document ---
:1955 Author Organization [facility] Address [address] [place] [address]- Care Team Providers Name Role Phone Chay Sarmiento MD Primary Care Physician Encounter [id number] Date(s): 02/26/21 - 03/05/21 [facility] [address] [place], [place] [address] Attending Physician: Nakul KUMAR, Torsten Patrick Admitting Physician: Torsten Mota MD Referring Physician: Barron Ricardo MD Allergies, Adverse Reactions, Alerts No Known Medication Allergies Medications allopurinol 100 mg oral tablet TAKE 2 TABLETS BY MOUTH ONCE A DAY Start Date: 02/26/21 Status: OrderedamLODIPine 5 mg oral tablet TAKE 1 TABLET BY MOUTH EVERY DAY Start Date: 02/26/21 Status: OrderedAspirin Enteric Coated 81 mg oral delayed release tablet TAKE 1 TABLET BY MOUTH ONCE A DAY Start Date: 02/26/21 Status: Orderedatorvastatin 20 mg oral tablet TAKE 1 TABLET BY MOUTH EVERYDAY AT BEDTIME Start Date: 02/26/21 Status: OrderedBasaglar KwikPen 100 units/mL subcutaneous solution INJECT 35 UNITS SUBCUTANEOUSLY ONCE A DAY FOR 90 DAYS Start Date: 02/26/21 Status: Orderedcarvedilol 25 mg oral tablet TAKE 1 TABLET BY MOUTH TWICE A DAY Start Date: 02/26/21 Status: Orderedglimepiride 4 mg oral tablet TAKE 1 TABLET BY MOUTH TWICE A DAY FOR 90 DAYS Start Date: 02/26/21 Status: OrderedSlow-Mag 119 mg-71.5 mg oral delayed release tablet TAKE 1 TABLET BY MOUTH THREE TIMES A DAY Start Date: 02/26/21 Status: Orderedtorsemide 20 mg oral tablet TAKE 4 TABLETS BY MOUTH TWICE A DAY Start Date: 02/26/21 Status: OrderedVitamin C 500 mg oral tablet 1 tablet = 500 mg, By Mouth, Daily, # 30 tablet, 0 Refills, Maintenance, 05/12/21 16:36:00 EDT, Tablet, Partial fill upon patient request if the prescription is for a schedule II opioid drug. Start Date: 02/26/21 Status: Ordered Vital Signs Most recent to oldest [Reference Range]: 1 Weight 100 kg (02/26/21 4:24 PM) Oxygen Saturation [94-100 %] 99 % (02/26/21 4:24 PM) Pulse Rate [55-90 bpm] 77 bpm (02/26/21 4:24 PM) Blood Pressure [90-138/55-84 mm Hg] 150/70 mm Hg *H* (02/26/21 4:24 PM) Mode of Delivery (Oxygen) Room air (02/26/21 4:24 PM) Blood pressure sites Arm, right (02/26/21 4:24 PM) Weight Obtained Via Patient/family stated (02/26/21 4:24 PM)
--- OUTSIDE RECORDS SUMMARY | 2022-11-05 07:16 | XMS_ITS | Continuity of Care Document ---
:1955 Author Organization [facility] Address [address] [place] [address]- Care Team Providers Name Role Phone Guillermina KUMAR, Chay Primary Care Physician [place] [facility] [place]/31/21 [facility] [address] [place], [place] [address] Attending Physician: Jewell Mckinney Admitting Physician: Jewell [...] 03/28/21 9:22:00 EDT, Route to Pharmacy Electronically, [facility], 930.64, cm, 03/28/21 6:14:00 EDT, Height, 99.7, kg, [...] Daily, # 30 tablet, 0 Refills, Maintenance, 02/26/21 [...]
--- OUTSIDE RECORDS SUMMARY | 2022-11-05 07:16 | XMS_ITS | Continuity of Care Document ---
:1955 Author Organization [facility] Address [address] [place] [address]- Care Team Providers Name Role Phone Guillermina KUMAR, Chay Primary Care Physician [place] [facility] [place](s): 03/31/21 - 04/30/21 [facility] [address] [place], [place] [address] Allergies, Adverse Reactions, Alerts No Known Medication [...] 03/28/21 9:22:00 EDT, Route to Pharmacy Electronically, [facility], 167.64, cm, 03/28/21 6:14:00 EDT, [...]
--- OUTSIDE RECORDS SUMMARY | 2022-11-05 07:16 | XMS_ITS | Continuity of Care Document ---
:1955 Author Organization [facility] Address [address] [place] [address]- Care Team Providers Name Role Phone Not on Staff, PCP Primary Care Physician Unavailable Encounter [facility] Date(s): 09/15/22 - 09/22/22 [facility] [address], [place] [address] Attending Physician: Nakul KUMAR, Torsten Patrick Admitting Physician: Torsten Mota MD Referring Physician: Shannon Degroot Allergies, Adverse Reactions, Alerts No Known Medication [...] 2 mg oral tablet See Instructions, TAKE 2 TABLETS BY MOUTH TWICE A DAY, # 360 tablet, 1 Refills, Maintenance, 09/07/22 14:03:00 EST, [facility], 168, cm, 06/25/22 15:37:00 EDT, Height, 90.8, kg, 04/27/22 16:09:00 EDT, Dry Weight Start Date: 09/07/22 Status: Orderedcalcium acetate 667 mg oral capsule See Instructions, TAKE 1 CAPSULE BY MOUTH 3 TIMES A DAY WITH EACH MEAL, # 270 capsule, 1 Refills, [facility], 167, cm, 03/18/22 8:43:00 EDT, Height, 90.8, [...] 05/02/22 8:00:00 EDT, Route to Pharmacy Electronically, [facility]/pharmacy #[id number], Partial fill upon patient [...] Confirmed Active vascular disease 1ARA Deidra ARELLANO,TH,SAT Note Bebeto English: PERFORM, SIGN, VERIFY Event Display: Patient Education/Instruction Authored Date: [id number] [facility] *[facility] [address] Clinical Summary Name KRISTINA IRIZARRY Age 67 Years 1955 PCP Not on Staff, PCP PCP Phone Visit Date 09/15/2022 06:40:00 Additional Instructions: Scheduled Appointments?? Future Appointments ?No Future Appointments Scheduled Follow-Up Instructions ?? Diagnosis Medications: Please continue your medications until treatment is completed or stopped by your provider. Discuss any questions related to medications with your provider. Medications to Continue with No Changes These medications were not printed or sent to your pharmacy Allopurinol (allopurinol 100 mg oral tablet) 1 tab Oral twice a day. Next Dose: Aspirin (Aspirin Enteric Coated 81 mg oral delayed release tablet) 1 tab(s) Oral Daily in the morning. TAKE 1 TABLET BY MOUTH ONCE A DAY. Next Dose: Atorvastatin (atorvastatin 20 mg oral tablet) 1 tab(s) Oral Daily at Bedtime. Next Dose: Bumetanide (bumetanide 2 mg oral tablet) TAKE 2 TABLETS BY MOUTH TWICE A DAY. Refills: 1. Next Dose: Calcium Acetate (calcium acetate 667 mg oral capsule) TAKE 1 CAPSULE BY MOUTH 3 TIMES A DAY WITH EACH MEAL. Refills: 1. Next Dose: Carvedilol (carvedilol 25 mg oral tablet) 1 tab(s) Oral twice a day. Next Dose: Clopidogrel (Plavix 75 mg oral tablet) 1 tab(s) Oral Daily for 30 Days. Refills: 2. Next Dose: Glimepiride (glimepiride 4 mg oral tablet) 2 tab(s) Oral Daily in the morning. Next Dose: Insulin Glargine (Basaglar KwikPen 100 units/mL subcutaneous solution) INJECT 35 UNITS SUBCUTANEOUSLY ONCE A DAY 5 am. Next Dose: Tamsulosin (tamsulosin 0.4 mg oral capsule) 1 capsule Oral Daily. Next Dose: Allergy Info:?? No Known Medication Allergies Medications Given This Visit Future Orders ?No future orders Vital Signs Height Weight BMI Blood Pressure / Temperature Pulse Rate Respiratory Rate 02 Sat Mode of Delivery / You can now view a summary of your hospital visit from the comfort of your home through a free online portal called [employer]. [employer] is a website that allows you to securely view yourmedical information including discharge summary, medications and follow-up visits. ??You can also send a secure electronic message to your doctor???s office to request appointments, renew medications or just ask a question. You can enroll at [email or web address] or register during your next office visit. Disclaimer:?? The information provided is of a general nature and is intended to be used in conjunction with the recommendations and advice of your health care practitioner. ??Every effort has been made to ensure that the information provided is accurate and complete at the time it is provided to you however, as your needs change, or, as new ??information becomes available, different or additional instructions may be required. If you have questions, please consult with your primary care provider or pharmacist, as appropriate.??This information is not intended to serve as substitution for assessment and evaluation by a qualified health care provider. If you do not have a primary care provider, you may find a [facility] provider by calling [facility] [employer] Link at [phone]. For information about the plan of care including goals and instructions for your diagnosis, please see the patient education orders section of this document. Patient Education Materials?? The content of this educational material or handout may have been modified, supplemented, or adaptedfrom its original content and format to support your individualized medical care. Patient Care team information Care Team PersonnelName: Raffaele HORN, Sharlene Position: [facility] RN Member Role: Primary Care Nurse Name: Melanie KUMAR, Chucho Villalta Position: [facility] Physician (General Medicine) Member Role: Lifetime Consulting Physician Address: Address: [address] [place] [address], [address] [place] [address]- Name: Jaz Milligan Position: [facility] Outreach Member Role: Lifetime Consulting Physician Name: Eileen CORTES, Ace Le Position: [facility] Associate Professional Member Role: Lifetime Consulting Provider Address: Address: [address] [place] [address]- Name: Not on Staff, PCP Position: [facility] Physician (General Medicine) Member Role: PCP Name: Ruby Negrete Position: [facility] Outreach Member Role: Lifetime Consulting Physician Name: Sunil Mosher MD Position: [facility] Renal MD Member Role: Lifetime Consulting Physician Address: Address: [address] [place] [address] [address] [facility] [place] [address]- Care Team Related PersonsName: TYLER IRIZARRY Address: [address] [place] [address] Name: TERESA LIM Address: [address] [place] [address]
--- OUTSIDE RECORDS SUMMARY | 2022-11-05 07:16 | XMS_ITS | Continuity of Care Document ---
:1955 Author Organization [facility] Address [address] [place] [address]- Care Team Providers Name Role Phone Not on Staff, PCP Primary Care Physician Unavailable Encounter [facility] Date(s): 10/31/19 - 11/07/[address] [address]- [facility] Attending Physician: Melanie KUMAR, Chucho Villalta
--- OUTSIDE RECORDS SUMMARY | 2022-11-05 07:16 | XMS_ITS | Continuity of Care Document ---
:1955 Author Organization [facility] Address [address] [place] [address]- Care Team Providers Name Role Phone Not on Staff, PCP Primary Care Physician Unavailable Encounter [facility] Date(s): 10/13/22 - 10/27/22 [facility] [address] [place] [id number]- Encounter Diagnosis Acute on chronic renal failure (Final) - 10/13/22 End stage renal disease (Final) - 10/13/22 Dry gangrene (Final) - 10/13/22 Discharge Disposition: A-Transfer SNF Attending Physician: Sandro Knight MD Admitting Physician: Sandro Knight MD Referring Physician: Not on Staff, Referring MD Allergies, Adverse Reactions, Alerts No Known Medication Allergies Immunizations Given and Recorded Vaccine Date Status Refusal Reason SARS-CoV-2 (COVID-19) mRNA-1273 vaccine 09/29/21 Recorded SARS-CoV-2 (COVID-19) mRNA-1273 vaccine 03/10/21 Recorded SARS-CoV-2 (COVID-19) mRNA-1273 vaccine 02/10/21 Recorded influenza virus vaccine, inactivated 07/20/19 Recorded influenza virus vaccine, inactivated 08/16/17 Recorded Medications acetaminophen 325 mg oral tablet 975 mg, 3, tablet, By Mouth, Every 6 hours, Refills 0, Maintenance, 10/27/22 12:21:00 EST, Partial fill upon patient request if the prescription is for a schedule II opioid drug. Start Date: 10/27/22 Status: Orderedallopurinol 100 mg oral tablet 1 tab, By Mouth, 2 times a day Start Date: 02/26/21 Status: Orderedamoxicillin-clavulanate 500 mg-125 mg oral tablet 1 tablet, By Mouth, Daily, for 2 days, 1 tablet daily, ensure AFTER dialysis on dialysis days., # 2 tablet, 0 Refills, Acute 10/29/22 12:22:00 EST, 10/27/22 12:22:00 EST, Tablet, Partial fill upon patient request if the prescription is for a schedule... Start Date: 10/27/22 Stop Date: 10/29/22 Status: OrderedAspirin Enteric Coated 81 mg oral [...] tablet, 1 Refills, Maintenance, 09/07/22 14:03:00 EST, [id number], 168, cm, 06/25/22 15:37:00 EDT, Height, 90.8, kg, 04/27/22 16:09:00 EDT, Dry Weight Start Date: 09/07/22 Status: Orderedcalcium acetate 667 mg oral capsule See Instructions, TAKE 1 CAPSULE BY MOUTH 3 TIMES A DAY WITH EACH MEAL, # 270 capsule, 1 Refills, [id number], 167, cm, 03/18/22 8:43:00 EDT, Height, 90.8, kg, 03/18/22 8:43:00 EDT, Dry Weight Start Date: 04/06/22 Status: Orderedcarvedilol 25 mg oral tablet 25 mg, 1, tablet, By Mouth, 2 times a day Start Date: 02/26/21 Status: Orderedcarvedilol 25 mg oral tablet 25 mg, Tablet, By Mouth, Hold for: HR<60, SBP<90, 10/27/22 9:00:00 EST Start Date: 10/27/22 Stop Date: 10/27/22 Status: Completedglimepiride 4 mg oral tablet 2 tablet = 8 mg, By Mouth, Daily in AM Start Date: 02/26/21 Status: OrderedMiraLax Powder 1 pack/packet = 17 Gm, By Mouth, Daily, 0 Refills, Maintenance, 10/27/22 12:22:00 EST, Powder, Partial fill upon patient request if the prescription is for a schedule II opioid drug. Start Date: 10/27/22 Status: OrderedNephrocap Capsule 1, capsule, By Mouth, Daily, Refills 0, Maintenance, 10/27/22 12:22:00 EST, Capsule, Partial fill upon patient request if the prescription is for a schedule II opioid drug. Start Date: 10/27/22 Status: OrderedoxyCODONE 5 mg oral tablet 10 mg, 2, tablet, By Mouth, Every 6 hours, PRN, for 3 days, # 12 tablet, Refills 0, Tot. Refills 0, Acute 10/30/22 12:22:00 EST, Pain , Severe, 10/27/22 12:22:00 EST, Print Requisition, Partial fill upon patient request if the prescription is for a sc... Start Date: 10/27/22 Stop Date: 10/30/22 Status: OrderedoxyCODONE 5 mg oral tablet 10 mg, Tablet, By Mouth, Every 6 hours, PRN for Pain , Severe, Routine, 10/13/22 18:21:00 EST Start Date: 10/13/22 Stop Date: 10/27/22 Status: OrderedPlavix 75 mg oral tablet 75 mg, 1, tablet, By Mouth, Daily, # 30 tablet, Refills 2, Tot. Refills 2, Maintenance, 05/02/22 8:00:00 EDT, Route to Pharmacy Electronically, [facility]/pharmacy #[id number], Partial fill upon patient request if the prescription is for a schedule II opioid drug.... Start Date: 05/02/22 Stop Date: 07/31/22 Status: OrderedSenna 8.6 mg oral tablet 17.2 mg, 2, tablet, By Mouth, Daily, Refills 0, Maintenance, 10/27/22 12:22:00 EST, Tablet, Partial fill upon patient request if the prescription is for a schedule II opioid drug. Start Date: 10/27/22 Status: Orderedsevelamer carbonate 800 mg oral tablet 2 tablet = 1,600 mg, By Mouth, 3 times a day with meals, 0 Refills, Maintenance, 10/27/22 12:22:00 EST, Tablet, Partial fill upon patient request if the prescription is for a schedule II opioid drug. Start Date: 10/27/22 Status: Orderedtamsulosin 0.4 mg oral capsule 0.4 [...] Confirmed Active vascular disease 1ARA Deidra ARELLANO,TH,SAT Results Orders for Microbiology Reports Name Date Anaerobic Culture (ANAEROBIC CULTURE) 10/18/22 Tissue Culture w/ Gram Smear (TISSUE/BIOPSY CULT.) 10/18 Microbiology Reports TEST:Anaerobic Culture STATUS:Auth (Verified) BODY SITE: SOURCE:TISSUE1 COLLECTED DATE/TIME:10/18/22 1:18 PMAnaerobic Culture SPECIMEN DESCRIPTION : TISSUE RT HEEL SPECIAL REQUESTS : NONE CULTURE : NO ANAEROBES ISOLATED SO FAR. REPORT STATUS : FINAL 10/20/2022TEST:Tissue/Biopsy Culture STATUS:Auth (Verified) BODY SITE: SOURCE:TISSUE1 COLLECTED DATE/TIME:10/18/22 1:18 PMTissue/Biopsy Culture SPECIMEN DESCRIPTION : TISSUE RT HEEL SPECIAL REQUESTS : NONE GRAM STAIN : 2+ POLYMORPHONUCLEAR LEUKOCYTES NO ORGANISMS SEEN CULTURE : 2+ STAPHYLOCOCCUS AUREUS. This isolate was identified using Maldi-TOF system These AST results were performed on the Microscan ID and AST system 2+ STREPTOCOCCUS AGALACTIAE SERO GROUP B This isolate was identified using Maldi-TOF system SUSCEPTIBILITY TESTING NOT ROUTINELY PERFORMED ON THIS ISOLATE. REPORT STATUS : FINAL 10/20/2022 ORGANISM 2+ STAPHYLOCOCCUS AUREUS. This isolate was identified using Maldi-TOF system These AST results were performed on the Microscan ID and AST system METHOD MIN. INHIB. CONC. (MCG/ML) CIPROFLOXACIN RESISTANT CLINDAMYCIN SUSCEPTIBLE ERYTHROMYCIN SUSCEPTIBLE LEVOFLOXACIN RESISTANT OXACILLIN SUSCEPTIBLE PENICILLIN SUSCEPTIBLE RIFAMPIN SUSCEPTIBLE RIFAMPIN RIFAMPIN SHOULD NOT BE USED ALONE FOR ANTIMICROBIAL RIFAMPIN THERAPY. TETRACYCLINE SUSCEPTIBLE TRIMETH/SULFAMETHOX SUSCEPTIBLE VANCOMYCIN SUSCEPTIBLERadiology Reports Exam Date Time Procedure Performing Provider Status 10/17/22 5:29 PM US Doppler Ext Lower Venous PelAkanksha arce; Auth (Verified) Bilat Notes:(US Doppler Ext Lower Venous Bilat) Reason For Exam: Swelling Extremities RESULT: US Doppler Ext Lower Venous Bilat US Doppler Ext Lower Venous Bilat Reason: Swelling Extremities; Clinical Question(s): Thrombosis. COMPARISON: None IMAGING TECHNIQUE: Ultrasound of the veins from the groin through the calf was performed using grayscale, color, and spectral Doppler ultrasound assessing for complete compressibility and normal flow characteristics. FINDINGS: RIGHT LOWER EXTREMITY: Common femoral vein: The right common femoral vein is not visualized due to overlying bandages. Femoral vein: Patent. No thrombosis. Popliteal vein: Patent. No thrombosis. Gastrocnemius veins: The visualized portions are patent without evidence of thrombosis. Peroneal veins: The visualized portions are patent without evidence of thrombosis. Posterior tibial veins: The visualized portions are patent without evidence of thrombosis. LEFT LOWER EXTREMITY: Common femoral vein: Patent. No thrombosis. Femoral vein: Patent. No thrombosis. Popliteal vein: Patent. No thrombosis. Gastrocnemius veins: The visualized portions are patent without evidence of thrombosis. Peroneal veins: The visualized portions are patent without evidence of thrombosis. Posterior tibial veins: The visualized portions are patent without evidence of thrombosis. OTHER FINDINGS: Subcutaneous edema is seen in both calf. IMPRESSION: 1. Nonvisualization of the right common femoral vein, is obscured by overlying bandage. 2. Otherwise, no evidence of deep venous thrombosis. WSN: [id number] Ordering Physician: Tana Wright Dictated By: Mary Colon MD Dictated Date/Time: 10/17/22 5:48 pm Reviewed By: Mary Colon MD Signed By: Mary Colon MD Signed Date/Time: 10/17/22 5:48 pm Transcribed By: ED Transcribed Date/Time: 10/17/22 5:45 pm Exam Date Time Procedure Performing Provider Status 10/13/22 12:[address] Angio Abdomen Aorta Bilat Kathy Yates; Auth (Verified) IlioFem Notes:(CT Angio Abdomen Aorta Bilat IlioFem) Reason For Exam: Claudication RESULT: CT Angio Abdomen Aorta Bilat IlioFem PROCEDURE: CT Angio Abdomen Aorta Bilat IlioFem INDICATION: Hx of Present Illness: bilateral foot pain. reports gangrenous right big toe and left heel. pain is worsening and radiating up left leg. unable to bear weight.; Reason: Claudication; Clinical Question(s): Obstruction; Order Comment: RELEVANT CLINICAL INFORMATION/CLINICAL QUESTION: Obstruction TECHNIQUE: CT angiography of the abdomen and lower extremities was performed using contiguous helical images from the diaphragm to the feet. 100 cc of Omnipaque 300 was administered intravenously. One mm axial images were reconstructed. Sagittal and coronal reformatted images were rendered. High resolution multiplanar, volume rendered and MIP images were created and used to evaluate the abdominal aorta and lower extremity arteries in multiple projections on an independent workstation, with permanent images saved to PACS. Automatic tube current modulation was used to optimize exposure parameters. RADIATION DOSE PARAMETERS: CTDIvol Body: 34.64 mGy, DLP Body: 1406 mGy*cm. COMPARISON: None FINDINGS: The abdominal aorta is patent and nonaneurysmal. There is moderate calcified eccentric atherosclerosis. The celiac artery is patent with mild to moderate eccentric stenosis proximally and moderate severe atherosclerosis of the tortuous splenic artery. The superior mesenteric artery is patent with moderate focal plaque at its origin and proximalmost aspect. Minimal atherosclerosis distally. There is branch vessels severe atherosclerosis seen of a SMAbranch vessel in the left mid abdomen, example series 604 image 57. The inferior mesenteric artery is is a tiny vessel but is patent. The right renal artery is with single right renal artery with patency. Mild atherosclerosis at the origin. The left renal artery is with single left renal artery which is patent. Right side: The common iliac artery is there is moderate eccentric plaque in the common iliac artery with patency The external iliac artery is moderate eccentric plaque with patency The internal iliac artery is severe diffuse atherosclerosis. The common femoral artery is severe atherosclerosis with 50% luminal narrowing at the mid common femoral artery The superficial femoral artery is with severe atherosclerosis throughout. There is focal severe plaque resulting in near occlusion to occlusion at the mid vessel. There are collateral vessels present. The lower superficial femoral artery is completely occluded at series 601 image 206 The deep femoral artery is is with severe atherosclerosis and multiple areas of occlusion The popliteal artery is patency with reconstitution of flow from collaterals with severe atherosclerosis. There is occlusion at the distal vessel from calcified severe plaque. The anterior tibial artery, posterior tibial artery, and peroneal artery are with severe areas of atherosclerotic calcified plaque and occlusion. Collateral vessels are present. There is calcified vessels of the lower leg with collateral vessels present in limited evaluation ofpatency. There is at least patency to the level of the mid lower leg with occluded posterior tibial artery more distally. The posterior tibial artery is reconstituted at the level of the calcaneus. Left side: The common iliac artery is with moderate atherosclerosis The external iliac artery is with moderate atherosclerosis The internal iliac artery is with severe circumferential atherosclerosis The common femoral artery is with severe atherosclerosis with 75% luminal narrowing at the mid vessel secondary to calcified plaque, example series 604 image 121 The superficial femoral artery is with severe atherosclerosis throughout its course. The vessel is with areas of near occlusion at the distal aspect with complete occlusion seen of the distal vessel atseries 601 image 218 The deep femoral artery is with multifocal areas of severe atherosclerosis and narrowing with occlusion The popliteal artery is his with severe atherosclerosis with greater than 50% luminal narrowing. Collateral vessels are present. Evaluation of the lower leg vessels is limited by degree of calcified atherosclerosis and small vessel size. There is severe calcified plaque limiting evaluation of the lower leg vessels including the anteriortibial artery, posterior to the artery, and peroneal trunk. The vessels are occluded in appearance with calcified plaque and collateral vessels present. OTHER FINDINGS: Evaluation of nonvascular findings is performed only in arterial phase. There is a moderate right-sided pleural effusion. There is adjacent atelectasis. There is cardiomegaly. 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 There is trace pericardial fluid. There is diffuse hepatic steatosis. There is nodular appearance of the lower liver. There is cholelithiasis. The spleen is enlarged. No peripancreatic stranding or fluid. The kidneys are not hydronephrotic. Is no focal mass or hematoma and adrenal glands with mild diffuse thickening of the left adrenal gland. A tiny hiatal hernia is present. Bowel loops are nondilated. A normal appendix is seen in the right lower quadrant. Distended urinary bladder. Prostate gland is not enlarged. Diffuse calcifications of the vas deferens. There is small volume of ascites, predominantly perihepatic. Visualized osseous structures show moderate degenerative changes of the lower lumbar spine. No acutefracture at the hip joints. No acute fracture at the knee joints. Moderate osteoarthritic changes. There is swelling and soft tissue protruding at the level of the great toe. The area of skin defect is complete into the level of the bone at the level of the second toe on theright at series 306 image 498. No drainable collection. 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 There is reconstitution of flow, with patency of the popliteal arteries with severe multifocal areasof near occlusion. Multifocal occlusion in the lower leg vessels. Severe calcified atherosclerosis limits evaluation of the lower leg vessels given artifact from calcifications. There are collateral vessels present which also demonstrate calcifications. This suggests chronic underlying lower leg vascular disease. There is also diffuse eccentric atherosclerosis of the visceral branch vessels, supporting underlying microvascular cause. There is swelling and soft tissue protruding at the level of the great toe. There is soft tissue defect which is seen extending to the bone. This can be directly examined/probe. There is cirrhotic appearance of the liver. Small volume of ascites in the upper abdomen. Cholelithiasis. Cardiomegaly, coronary artery atherosclerosis, and moderate right pleural effusion. WSN: [id number] Ordering Physician: Milana Elmore Dictated By: Michelle Rodney MD Dictated Date/Time: 10/13/22 3:03 pm Reviewed By: Michelle Rodney MD Signed By: Michelle Rodney MD Signed Date/Time: 10/13/22 3:03 pm Transcribed By: ED Transcribed Date/Time: 10/13/22 2:49 pm Vital Signs Most recent to oldest 1 2 3 [Reference Range]: Height 168 cm 168 cm 168 cm (10/27/22 10:44 AM) (10/27/22 7:52 AM) (10/26/22 5:0 1 PM) Weight 91 kg 91 kg 91 kg (10/18/22 12:13 PM) (10/18/22 12:03 PM) (10/16/22 1: 47 PM) Oxygen Saturation [94-100 98 % 95 % 96 % %] (10/27/22 4:14 PM) (10/27/22 10:44 AM) (10/27/22 7: 52 AM) Pulse Rate [55-90 bpm] 65 bpm 63 bpm 63 bpm (10/27/22 4:14 PM) (10/27/22 10:44 AM) (10/27/22 9: 08 AM) Body Mass Index 32.24 kg/m2 32.24 kg/m2 32.24 kg/m2 [18.5-24.99 kg/m2] *>HHI* *>HHI* *>HHI* (10/18/22 12:13 PM) (10/16/22 1:47 PM) (10/14/22 1 2:18 PM) Blood Pressure 123/77 mm Hg 124/71 mm Hg 134/76 mm Hg [90-138/55-84 mm Hg] (10/27/22 4:14 PM) (10/27/22 10:44 AM) ( 9:08 AM) Respiratory Rate [16-30 18 br/min 18 br/min 18 br/mi n br/min] (10/27/22 4:14 PM) (10/27/22 4:07 PM) (10/27/22 10: 44 AM) Temperature [96.8-100.4 98.2 DegF 98.2 DegF 98.2 Deg F DegF] (10/27/22 4:14 PM) (10/27/22 10:44 AM) (10/27/22 7: 52 AM) Liters per Minute 2 L/min 2 L/min 2 L/min (10/18/22 3:15 PM) (10/18/22 3:00 PM) (10/18/22 2:45 P M) Mode of Delivery (Oxygen) Room air Room air Room a ir (10/27/22 4:14 PM) (10/27/22 10:44 AM) (10/27/22 7: 52 AM) Blood pressure sites Arm, right Arm, right Arm, left (10/27/22 4:14 PM) (10/27/22 10:44 AM) (10/27/22 7: 52 AM) Temperature Route Oral Oral Oral (10/27/22 4:14 PM) (10/27/22 10:44 AM) (10/27/22 7: 52 AM) Dry Weight 91 kg (10/14/22 12:18 PM) Weight Obtained Via Patient/family stated (10/13/22 6:27 AM) History and physical note Sandro Knight MD: SIGN Sandro Knight MD: SIGN, MODIFY Sandro Knight MD: MODIFY, MODIFY, MODIFY, MODIFY, MODIFY, MODIFY, MODIFY, MODIFY, MODIFY, MODIFY, MODIFY, SIGN, VERIFY Event Display: History and Physical Hospital Authored Date: Patient: KRISTINA IRIZARRY Age: 67 years Sex: Male : 1955 Associated Diagnoses: None Author: Juliann Boyd NP Visit Information Chief Complaint: heel and toe pain worsening leg pain with walking/claudication. History of Present Illness - Kristina Irizarry is a 67 year old man with a PMH: Obesity, ESRD w/HD on , bilateral foot wounds, nephrogenic anemia, secondary hyperparathyroidism, HTN, Peripheral vascular disease who presented to the ER with shooting pain up both legs, claudication, a right heel wound and left great toe wound both dry gangrene. He has been followed by Dr Mota in the Vascular office for foot wounds, PVD and Dialysis access last seen 09/28/2022. Dr Mota did a Right lower extremity angiography with Popliteal artery recanalization and angioplasty 3.5 mm serrated balloon and 3 mm angioplasty of the anterior tibial artery on 05/06/2022. Vein mapping was done on 05/01/2022 for future possible bypass. Vascular surgery was consulted for peripheral vascular disease and wounds followed in the Vascular surgery office. Patient denies chest pain, shortness of breath nor any other symptoms. Past Medical History Problem list All Problems Obese class I / SNOMED CT 739257024355443 / Confirmed End-stage renal disease / SNOMED CT 7048697442 / Confirmed CHIO Burna ,,SAT Peripheral vascular disease / SNOMED CT 6410476320 / Confirmed Dry gangrene / SNOMED CT 0203567836 / Provisional Allergies Allergic Reactions (Selected) No Known Medication Allergies Current medications (Selected) Inpatient Medications Ordered Dilaudid Inj: 1 mg, Injection, IV Push Slowly, Every 15 minutes for 3 doses/times, PRN for Pain , Moderate, and SBP greater than 100, STAT, 10/13/22 9:36:00 EST, Stop date Limited # of times Incomplete NaCL 0.9% 1,000 mL: 1,000 mL, Infusion, IV Infusion, 1,000 mL, 100 mL/hr, Infuse over 10 hr, Use left arm if possible, Continue until D/C'd Unless duration specified, Routine, 10/12/22 20:25:00 EST, 2,m2 Prescriptions Prescribed Plavix 75 mg oral tablet: 75 mg, 1, tablet, By Mouth, Daily, # 30 tablet, Refills 2, Tot. Refills 2,Maintenance, 05/02/22 8:00:00 EDT, Route to Pharmacy Electronically, [facility]/pharmacy #[id number], Partial fill upon patient request if the prescription is for a schedule II opioid drug.... bumetanide 2 mg oral tablet: See Instructions, TAKE 2 TABLETS BY MOUTH TWICE A DAY, # 360 tablet, 1 Refills, Maintenance, 09/07/22 14:03:00 EST, [id number], 168, cm, 06/25/22 15:37:00 EDT, Height,90.8, kg, 04/27/22 16:09:00 EDT, Dry Weight calcium acetate 667 mg oral capsule: See Instructions, TAKE 1 CAPSULE BY MOUTH 3 TIMES A DAY WITH EACH MEAL, # 270 capsule, 1 Refills, [id number], 167, cm, 03/18/22 8:43:00 EDT, Height, 90.8, kg, 03/18/22 8:43:00 EDT, Dry Weight Documented Medications Documented Aspirin Enteric Coated 81 mg oral delayed release tablet: 1 tablet = 81 mg, By Mouth, Daily in AM, TAKE 1 TABLET BY MOUTH ONCE A DAY Basaglar KwikPen 100 units/mL subcutaneous solution: INJECT 35 UNITS SUBCUTANEOUSLY ONCE A DAY 5 am allopurinol 100 mg oral tablet: 1 tab, By Mouth, 2 times a day atorvastatin 20 mg oral tablet: 1 tablet = 20 mg, By Mouth, Daily at bedtime carvedilol 25 mg oral tablet: 25 mg, 1, tablet, By Mouth, 2 times a day glimepiride 4 mg oral tablet: 2 tablet = 8 mg, By Mouth, Daily in AM tamsulosin 0.4 mg oral capsule: 0.4 mg, 1, capsule, By Mouth, Daily, Refills 0, Maintenance, 04/21/22 11:46:00 EDT, Partial fill upon patient request if the prescription is for a schedule II opioid drug. Surgical History Procedure/Surgical Profile right [employer] access arch aortogram left upper extremity angiogram. Ligation of AV graft and ligation ofpreviously created arteriovenous fistula. (SNOMED CT 321749351) performed by Torsten Mota MD on 04/27/2022 at 66 Years. Right lower extremity angiography. Popliteal artery recanalization and angioplasty 3.5 mm serrated balloon and 3 mm angioplasty of AT artery. (SNOMED CT 2064603631) performed by Torsten Mota MD on 04/27/2022 at 66 Years. Social History Social History No qualifying data available. . Primary language Nicaraguan Review of Systems shooting bilateral lower extremity pain with right heel wound and left great toe wound Physical Examination Vital Signs Vitals : VITALS 10/13/2022 13:03 EST Temperature 98.1 DegF Temperature Route Oral Pulse Rate 77 bpm Respiratory Rate 17 br/min Systolic Blood Pressure 148 mm Hg H Diastolic Blood Pressure 83 mm Hg Mean Arterial Pressure 105 mm Hg Pulse Pressure 65 mm Hg Oxygen Saturation 100 % Mode of Delivery (Oxygen) Room air . Weight : Weight lb/oz 10/13/2022 6:45 EST Weight lb/oz 200 lb 10 oz 10/13/2022 6:27 EST Weight lb/oz 200 lb 10 oz . BMI : Body Mass Index 10/13/2022 6:27 EST Body Mass Index 32.24 kg/m2 >HHI . General Appearance: No apparent distress, Appears stated age, Well Developed, Obese. HEENT Head: Normocephalic. Eyes: EOMI. Ears: Both WNL. Nose: Nares patent. Oropharynx: Mouth normal. Chest/Breast/Axilla Normal configuration. Cardiovascular Cardiac: PMI Non displaced, RRR. Respiratory Respiratory: Normal I:E. Abdomen/GI Non-distended. Soft non-tender. Vascular Surgical Pulses (neuropathy in feet, motor intact, no edema noted) Left Lower Extremity: Anterior tibial (doppler, BP), Dorsalis pedis (doppler, BP), Posterior tibial (doppler, BP). Right Lower Extremity: Anterior tibial (doppler, BP), Dorsalis pedis (doppler, BP), Posterior tibial(doppler, 0). Neurologic Neuro Exam: WNL, CN 2-12 normal, alert and oriented. Psychiatric Mood and affect WNL. Appearance WNL. Speech WNL. Thought processes WNL. Orientation to time. Orientation to person. Orientation to place. Results Review 7 day results Labs & Documents Laboratory : LABORATORY 10/13/2022 13:50 EST Glucose, POC 202 mg/dL H 10/13/2022 9:35 EST WBC 9.6 k/mm3 RBC 4.12 m/mm3 L Hgb 11.7 Gm/dL L Hct 36.2 % L MCV 87.9 femtoliters MCH 28.4 pg MCHC 32.3 g/dL L Platelet Count 183 k/mm3 RDW-SD 48.3 femtoliters H MPV 10.4 femtoliters Nucleated RBC (Automated) 0.0 #/100 WBC'S Abs. NRBC 0.0 k/mm3 Abs. Neut 8.1 k/mm3 H Abs. Lymph 0.6 k/mm3 L Abs. Dixie 0.7 k/mm3 Abs. Eo 0.2 k/mm3 Abs. Baso 0.0 k/mm3 Neut % 83.6 % H Lymph % 5.7 % L Dixie % 7.4 % Eos % 2.3 % Baso % 0.3 % Imm Gran 0.7 % Abs. Imm Gran 0.1 k/mm3 INR 1.1 Protime (PT) 11.7 seconds H Sed Rate 72 mm/hr H Sodium 130 mmol/L L Potassium 4.9 mmol/L Chloride 90 mmol/L L Bicarbonate Level 23 mmol/L Anion Gap 17 Glucose Level 277 mg/dL H BUN 87 mg/dL H Creatinine-Blood 5.4 mg/dL H Estimated GFR Creatinine 11 ML/MIN/1.73 M2 Calcium 9.4 mg/dL C-Reactive Protein 12.5 mg/dL H Nt-Probnp >27610 pg/mL Imaging : RADIOLOGY ( * Final Report * Reason For Exam Claudication RESULT: CT Angio Abdomen Aorta Bilat IlioFem PROCEDURE: CT Angio Abdomen Aorta Bilat IlioFem INDICATION: Hx of Present Illness: bilateral foot pain. reports gangrenous right big toe and left heel. pain is worsening and radiating up left leg. unable to bear weight.; Reason: Claudication; Clinical Question(s): Obstruction; Order Comment: RELEVANT CLINICAL INFORMATION/CLINICAL QUESTION: Obstruction TECHNIQUE: CT angiography of the abdomen and lower extremities was performed using contiguous helical images from the diaphragm to the feet. 100 cc of Omnipaque 300 was administered intravenously. One mm axial images were reconstructed. Sagittal and coronal reformatted images were rendered. High resolution multiplanar, volume rendered and MIP images were created and used to evaluate the abdominal aorta and lower extremity arteries in multiple projections on an independent workstation, with permanent images saved to PACS. Automatic tube current modulation was used to optimize exposure parameters. RADIATION DOSE PARAMETERS: CTDIvol Body: 34.64 mGy, DLP Body: 1406 mGy*cm. COMPARISON: None FINDINGS: The abdominal aorta is patent and nonaneurysmal. There is moderate calcified eccentric atherosclerosis. The celiac artery is patent with mild to moderate eccentric stenosis proximally and moderate severe atherosclerosis of the tortuous splenic artery. The superior mesenteric artery is patent with moderate focal plaque at its origin and proximalmost aspect. Minimal atherosclerosis distally. There is branch vessels severe atherosclerosis seen of a SMAbranch vessel in the left mid abdomen, example series 604 image 57. The inferior mesenteric artery is is a tiny vessel but is patent. The right renal artery is with single right renal artery with patency. Mild atherosclerosis at the origin. The left renal artery is with single left renal artery which is patent. Right side: The common iliac artery is there is moderate eccentric plaque in the common iliac artery with patency The external iliac artery is moderate eccentric plaque with patency The internal iliac artery is severe diffuse atherosclerosis. The common femoral artery is severe atherosclerosis with 50% luminal narrowing at the mid common femoral artery The superficial femoral artery is with severe atherosclerosis throughout. There is focal severe plaque resulting in near occlusion to occlusion at the mid vessel. There are collateral vessels present. The lower superficial femoral artery is completely occluded at series 601 image 206 The deep femoral artery is is with severe atherosclerosis and multiple areas of occlusion The popliteal artery is patency with reconstitution of flow from collaterals with severe atherosclerosis. There is occlusion at the distal vessel from calcified severe plaque. The anterior tibial artery, posterior tibial artery, and peroneal artery are with severe areas of atherosclerotic calcified plaque and occlusion. Collateral vessels are present. There is calcified vessels of the lower leg with collateral vessels present in limited evaluation ofpatency. There is at least patency to the level of the mid lower leg with occluded posterior tibial artery more distally. The posterior tibial artery is reconstituted at the level of the calcaneus. Left side: The common iliac artery is with moderate atherosclerosis The external iliac artery is with moderate atherosclerosis The internal iliac artery is with severe circumferential atherosclerosis The common femoral artery is with severe atherosclerosis with 75% luminal narrowing at the mid vessel secondary to calcified plaque, example series 604 image 121 The superficial femoral artery is with severe atherosclerosis throughout its course. The vessel is with areas of near occlusion at the distal aspect with complete occlusion seen of the distal vessel atseries 601 image 218 The deep femoral artery is with multifocal areas of severe atherosclerosis and narrowing with occlusion The popliteal artery is his with severe atherosclerosis with greater than 50% luminal narrowing. Collateral vessels are present. Evaluation of the lower leg vessels is limited by degree of calcified atherosclerosis and small vessel size. There is severe calcified plaque limiting evaluation of the lower leg vessels including the anteriortibial artery, posterior to the artery, and peroneal trunk. The vessels are occluded in appearance with calcified plaque and collateral vessels present. OTHER FINDINGS: Evaluation of nonvascular findings is performed only in arterial phase. There is a moderate right-sided pleural effusion. There is adjacent atelectasis. There is cardiomegaly. 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 There is trace pericardial fluid. There is diffuse hepatic steatosis. There is nodular appearance of the lower liver. There is cholelithiasis. The spleen is enlarged. No peripancreatic stranding or fluid. The kidneys are not hydronephrotic. Is no focal mass or hematoma and adrenal glands with mild diffuse thickening of the left adrenal gland. A tiny hiatal hernia is present. Bowel loops are nondilated. A normal appendix is seen in the right lower quadrant. Distended urinary bladder. Prostate gland is not enlarged. Diffuse calcifications of the vas deferens. There is small volume of ascites, predominantly perihepatic. Visualized osseous structures show moderate degenerative changes of the lower lumbar spine. No acutefracture at the hip joints. No acute fracture at the knee joints. Moderate osteoarthritic changes. There is swelling and soft tissue protruding at the level of the great toe. The area of skin defect is complete into the level of the bone at the level of the second toe on theright at series 306 image 498. No drainable collection. 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 There is reconstitution of flow, with patency of the popliteal arteries with severe multifocal areasof near occlusion. Multifocal occlusion in the lower leg vessels. Severe calcified atherosclerosis limits evaluation of the lower leg vessels given artifact from calcifications. There are collateral vessels present which also demonstrate calcifications. This suggests chronic underlying lower leg vascular disease. There is also diffuse eccentric atherosclerosis of the visceral branch vessels, supporting underlying microvascular cause. There is swelling and soft tissue protruding at the level of the great toe. There is soft tissue defect which is seen extending to the bone. This can be directly examined/probe. There is cirrhotic appearance of the liver. Small volume of ascites in the upper abdomen. Cholelithiasis. Cardiomegaly, coronary artery atherosclerosis, and moderate right pleural effusion. WSN: [id number] Ordering Physician: Milana Elmore Signature Line Dictated By: Michelle Rodney MD Dictated Date/Time: 10/13/22 3:03 pm) 10/13/2022 12:[address] Angio Abdomen Aorta Bilat IlioFem CT Angio Abdomen Aorta Bilat IlioFem Impression and Plan Kristina Irizarry is a 67 year old man with a PMH: Obesity, ESRD w/HD on , bilateral foot wounds, nephrogenic anemia, secondary hyperparathyroidism, HTN, Peripheral vascular disease who presented to the ER with shooting pain up both legs, claudication, a right heel wound and left great toe wound both dry gangrene. He has been followed by Dr Mota in the Vascular office last seen 09/28/2022. Dr Mota did a Right lower extremity angiography with Popliteal artery recanalization and angioplasty 3.5 mmserrated balloon and 3 mm angioplasty of the anterior tibial artery on 05/06/2022. Vein mapping was done on 05/01/2022 for future possible bypass. Vascular surgery was consulted for peripheral vascular disease and wounds followed in the Vascular surgery office. Plan: Admit to Vascular surgery Monitor lower extremity signals Wound care: Betadine paint to right heel and left great toe NPO@MN for angiogram with possible intervention tomorrow 10/14 Continue Aspirin 81mg daily and Plavix 75mg daily DVT ppx: HSQ Aprec Renal recs: HD today 10/13 inpatient Pain control Monitor labs and replete as needed Any questions or concerns page Vascular surgery [id number] Case discussed with Sandro Aleman MD: PERFORM Event Display: History and Physical Hospital Authored Date: [id number] Attending PA/FLYING I INSTRUCTOR Attestation: I have reviewed the patient's medical history, findings on examination,diagnosis and treatment plan as documented in the PA/FLYING I INSTRUCTOR note. Case and its management discussed withPA/FLYING I INSTRUCTOR. Note Roshan HORN, Maria Guadalupe: PERFORM Event Display: Discharge/Transfer Note Hospital Authored Date: [id number] Nursing Discharge Note Entered On: 10/27/2022 18:27 EST Performed On: 10/27/2022 18:26 EST by Maria Guadalupe Islas RN Nursing Discharge Note 2 Discharge Time : 10/27/2022 18:00 EST Discharge Level of Care at Discharge : half-way facility Discharge [facility] Discharge VNA/Hospice/Home Care(v001) : [facility] Patient Left Unit Via : Ambulance Patient Accompanied Off Unit with : Ambulance/Chair Van Personnel Handover Given to Transport Personnel : Yes DC Instructions Provided & Signed by Pt : Yes Patient Understands D/C Instructions : Yes Patient Instructions Discharge Signed : Yes Did Pt have Specialty Bed or Wound Vac : Yes Roshan HORN, [facility] - 10/27/2022 18:26 Farhana KEYS, Barbara Tello: MODIFY, SIGN, VERIFY Barbara Guerra NP: VERIFY, PERFORM Charlie KEYS, Barbara Tello: PERFORM, SIGN Barbara Guerra NP: SIGN Omar KUMAR, Vijay Grider: SIGN Event Display: Discharge/Transfer Note Hospital Authored Date: Patient: KRISTINA IRIZARRY Age: 67 years Sex: Male : 1955 Associated Diagnoses: None Author: Barbara Guerra NP Discharge Information Admission Date: 10/13/2022 Discharge Date 10/27/2022 Principal Discharge Diagnosis Dry gangrene. Secondary Discharge Diagnoses Acute on chronic renal failure: Present on admission - clinically unable to determine onset. End stage renal disease: Present on admission - yes. Foot pain-swelling: Present on admission - yes. Peripheral vascular disease: Present on admission - yes. Medications MEDICATION LIST (Selected) Prescriptions Prescribed Plavix 75 mg oral tablet: 75 mg, 1, tablet, By Mouth, Daily, # 30 tablet, Refills 2, Tot. Refills 2,Maintenance, 05/02/22 8:00:00 EDT, Route to Pharmacy Electronically, [facility]/pharmacy #[id number], Partial fill upon patient request if the prescription is for a schedule II opioid drug.... amoxicillin-clavulanate 500 mg-125 mg oral tablet: 1 tablet, By Mouth, Daily, for 2 days, 1 tablet daily, ensure AFTER dialysis on dialysis days., # 2 tablet, 0 Refills, Acute 10/29/22 12:22:00 EST, 10/27/22 12:22:00 EST, Tablet, Partial fill upon patient request if the prescription is for a schedule... bumetanide 2 mg oral tablet: See Instructions, TAKE 2 TABLETS BY MOUTH TWICE A DAY, # 360 tablet, 1 Refills, Maintenance, 11/21/22 14:03:00 EST, [id number], 168, cm, 06/25/22 15:37:00 EDT, Height,90.8, kg, 04/27/22 16:09:00 EDT, Dry Weight calcium acetate 667 mg oral capsule: See Instructions, TAKE 1 CAPSULE BY MOUTH 3 TIMES A DAY WITH EACH MEAL, # 270 capsule, 1 Refills, [id number], 167, cm, 03/18/22 8:43:00 EDT, Height, 90.8, kg, 03/18/22 8:43:00 EDT, Dry Weight oxyCODONE 5 mg oral tablet: 10 mg, 2, tablet, By Mouth, Every 6 hours, PRN, for 3 days, # 12 tablet,Refills 0, Tot. Refills 0, Acute 10/30/22 12:22:00 EST, Pain , Severe, 10/27/22 12:22:00 EST, Print Requisition, Partial fill upon patient request if the prescription is for a sc... Documented Medications Documented Aspirin Enteric Coated 81 mg oral delayed release tablet: 1 tablet = 81 mg, By Mouth, Daily in AM, TAKE 1 TABLET BY MOUTH ONCE A DAY Basaglar KwikPen 100 units/mL subcutaneous solution: INJECT 35 UNITS SUBCUTANEOUSLY ONCE A DAY 5 am MiraLax Powder: 1 pack/packet = 17 Gm, By Mouth, Daily, 0 Refills, Maintenance, 10/27/22 12:22:00 EST, Powder, Partial fill upon patient request if the prescription is for a schedule II opioid drug. Nephrocap Capsule: 1, capsule, By Mouth, Daily, Refills 0, Maintenance, 10/27/22 12:22:00 EST, Capsule, Partial fill upon patient request if the prescription is for a schedule II opioid drug. Senna 8.6 mg oral tablet: 17.2 mg, 2, tablet, By Mouth, Daily, Refills 0, Maintenance, 10/27/22 12:22:00 EST, Tablet, Partial fill upon patient request if the prescription is for a schedule II opioid drug. acetaminophen 325 mg oral tablet: 975 mg, 3, tablet, By Mouth, Every 6 hours, Refills 0, Maintenance, 10/27/22 12:21:00 EST, Partial fill upon patient request if the prescription is for a schedule II opioid drug. allopurinol 100 mg oral tablet: 1 tab, By Mouth, 2 times a day atorvastatin 20 mg oral tablet: 1 tablet = 20 mg, By Mouth, Daily at bedtime carvedilol 25 mg oral tablet: 25 mg, 1, tablet, By Mouth, 2 times a day glimepiride 4 mg oral tablet: 2 tablet = 8 mg, By Mouth, Daily in AM sevelamer carbonate 800 mg oral tablet: 2 tablet = 1,600 mg, By Mouth, 3 times a day with meals, 0 Refills, Maintenance, 10/27/22 12:22:00 EST, Tablet, Partial fill upon patient request if the prescription is for a schedule II opioid drug. tamsulosin 0.4 mg oral capsule: 0.4 mg, 1, capsule, By Mouth, Daily, Refills 0, Maintenance, 04/21/22 11:46:00 EDT, Partial fill upon patient request if the prescription is for a schedule II opioid drug.. Chief Complaint/Reason for Admission Gangrene, PAD Aware of diagnosis: patient. Procedures Operative Note Patient: KRISTINA IRIZARRY Age: 67 years Sex: Male : 1955 Associated Diagnoses: None Author: Torsten Mota MD DATE OF PROCEDURE: 10/16/2022 PREOPERATIVE DIAGNOSIS: Diabetes, renal failure and left great toe right heel gangrene POSTOPERATIVE DIAGNOSIS: Same OPERATION: Right common femoral artery access with ultrasound guidance pelvic arteriogram third order catheter selection and left leg angiography with left common femoral artery and SFA and popliteal balloon angioplasty to 6 mm. Redirection of catheter with right lower extremity angiography and right SFA and popliteal balloon angioplasty to 5 mm. SURGEON: Nakul [employer] PSYCHOLOGIST: ANESTHESIA: MAC with local Patient: KRISTINA IRIZARRY Age: 67 Years Sex: Male : 1955 Indication for Surgery Right heel wound, with gangrene afterrevascularization earlier this month. Patient understands it will be a difficult wound to heal but ultimately will given the fact that there was extending redness we felt this was progressing from dry gangrene to wet gangrene. I explained to him he would need debridement and several months of offloading. Preoperative Diagnosis Right heel gangrenous wound Postoperative Diagnosis same Operation Excisional Debridement Procedure, Right, Heel, Partial calcanectomy Surgeon(s) Omar KUMAR, Vijay Grider (Primary Surgeon) Reinforcing Bar Setter Kristy Braxton MD Anesthesia General Anesthesia Daja KUMAR, Alfred Brunson (Att Anesthesiologist) Markus Reynolds DO (Att Anesthesiologist) . Attending Consultants Vidhi KUMAR, Sunil. Aravind KEYS, Mary Kay. Allergies Allergic Reactions (Selected) No Known Medication Allergies Discharge condition: good Compared to admission: improved Code status: Full Hospital Course Kristina Irizarry is a 67 year old man with a PMH: Obesity, ESRD w/HD on , bilateral foot wounds, nephrogenic anemia, secondary hyperparathyroidism, HTN, Peripheral vascular disease who presented to the ER on 10/13/22 with shooting pain up both legs, claudication, a right heel wound and left great toe wound both dry gangrene. He has been followed by Dr Mota in the Vascular office last seen 09/28/2022. He previously underwent right lower extremity angiography with Popliteal artery recanalization and angioplasty 3.5 mm serrated balloon and 3 mm angioplasty of the anterior tibial artery (04/2022, Nakul). Vein mapping was done on 05/01/2022 for future possible bypass. He has biphasic signals x 3 , carl aterally. Patient is s/p bilateral lower extremity angiogram on 10/16/[address] Mota. Tolerated the procedure well without issue. Right heel appears infected with erythema, edema and warmth around the right heel extending up the right medial calf. We will start patient on broad-spectrum antibioticsincluding vancomycin and Zosyn. Patient underwent elective right heel partial calcanectomy and debridement with Dr. Nelson on 10/18/22. Procedure went well without complications. Postoperatively, patient has remained hemodynamically stable with well controlled pain. Wound vac placed to right heel; wound measure [id number]. PT evaluation recommending rehab. BIDS consulted due to hypoglycemia despite decr easing home dose Lantus 35>20 u, patient with persistent intermittent nightly hypoglycemia; has since resolved. Patient remains PUI for COVID - precautions end at midnight tonight (10/28); PCR results remain negative. Patient cleared for discharge to rehab today, 10/27/22. Anticoagulation: ASA 81mg, Plavix 75mg daily Statin: Atorvastatin 20mg daily Pain: Tylenol 650mg Q6H PRN mild-moderate pain; Oxycodone PRN severe pain Antibiotics: Augmentin x 7 days - to be completed 10/29/22 Postoperative Events Unexpected Return to the OR: no. Bleeding required re-operation: no. 35 minutes spent on discharge Discharge Plan Discharge Disposition Discharge: Post Acute Care. FACTORY MAINTENANCE TECHNICIAN: Wound Care Wound vac to right plantar heel: suction at 125mmHg. Measures [id number]. Change every Wednesday and - last changed 10/26/22 Left first toe: betadine paint daily to ulcer; may leave open to air .Amy Tate RN: PERFORM, SIGN, VERIFY Event Display: Case Management Discharge Plan Authored Date: Patient: KRISTINA IRIZARRY Age: 67 years Sex: Male : 1955 Associated Diagnoses: None Author: Amy Tate RN Discharge Plan Case Management Discharge Plan : Case Management Discharge Plan Data 10/27/2022 12:23 EST Discharge Level of Care at Discharge half-way facility Discharge Nursing Homes/Rehab Facilities [facility] Discharge Transportation Arranged [facility] [phone] [facility] [phone] Discharge Arranged Transport Date/Time 10/27/2022 17:30 Mode of Transportation Arranged Ambulance Agency Bond Underwriter #1 intake/allscripts Service Categories #1 Occupational Therapy, Physical Therapy, Nursing Home, Other: Hemodialysis Service Comments #1 You are being discharged to [facility] for skilled rehab (retirement, physical and occupational therapy, and hemodialysis). Name of Person Notified of Transfer Yamile Mercedes RN: PERFORM Event Display: Patient Education/Instruction Authored Date: Inpatient Adult Discharge Instructions [address] [address] Name: KRISTINA IRIZARRY : 1955 Visit: 10/13/2022 17:17:00 Current Date: 10/27/2022 16:19 Account: [id number] Inpatient Adult Discharge Instructions We would like to thank you for allowing us to assist you with your healthcare needs. The following includes patient education materials and information regarding your injury/illness. Our entire staff strives to provide an excellent experience for our patients and their families. PLEASE ENSURE YOU FOLLOW-UP PER THE INSTRUCTIONS BELOW! ?? YOUR OPINION IS IMPORTANT TO US! Please complete the survey you may receive by mail or email. Your feedback will be used to make improvements to the healthcare experiences of our patients and their families. Surveys are administered by [employer] ?? If further treatment with your primary care physician or another doctor is recommended, it is important for you to keep the appointment. Call your primary care physician or return to the Emergency Department immediately if your condition worsens, fails to improve, or new symptoms develop. If you need to find a doctor, you can call [facility] for a referral at [phone] or toll free at [phone] or log in to [email or web address] ?? You can view and manage your care through the patient portal or by using a health care john of your choosing. [employer] is a website that allows you to securely view your medical information including your hospital discharge summary, office visit summaries, medications and follow-up visits. You can also request appointments, renew medications, and request access to your medical information using a health care john of your choosing, or just ask a question. You can enroll at [email or web address] or register during your next office visit. You have been discharged from [facility], Patient Care Unit: M6. If you have any questions regarding these instructions after you leave, please call us and we will be happy to assist you. [facility] Your Care Team Attending Physician Sandro Knight MD Consulting Providers Erick KUMAR, Bacilio Grider; Danilo KUMAR, Efraín Farr; Kandi KUMAR, Joaquim; Yuki KUMAR, Criss Nelson MD, Vijay Grider; Nakul KUMAR, Torsten Patrick; Gene KUMAR, Helena Grider Discharging Providers Charlie KEYS, Barbara Tello Reason for Admission Pt unable to drive to dialysis this morning due to BL foot pain. He normally drives himself but thepain was too great today, Has known gangrene. Pt able to stand and pivot to EMS stretcher. AXO4. Your Diagnosis Acute on chronic renal failure End stage renal disease Dry gangrene Peripheral vascular disease Tests Performed Below is a partial list of the tests performed during your hospitalization. You may have had other tests and procedures not included in this list. Please discuss all test results with your provider. APTT Basic Metabolic Panel BUN C-REACTIVE PROTEIN CBC w/ Differential COVID-19 (2019 Novel Coronavirus) PCR COVID-19, RSV, and Flu A/B, Rapid PCR Creatinine GLUCOSE POC Ionized Calcium Lytes Magnesium Level Phosphorus Level ProBNP PROTIME PROFILE SEDIMENTATION RATE,AUTOMATED SOURCE EXPOSURE PROFILE Type and Screen CT Angio Abdomen Aorta Bilat IlioFem US Doppler Ext Lower Venous Bilat Primary Care Provider Not on Staff, PCP Advance Directive Health Care Proxy on File Yes - Health Care Proxy No qualifying data available. Discharge Vitals Temperature: 98.2 DegF Height: 168 cm Pulse Rate: 65 bpm Weight: 91 kg Respiratory Rate: 18 br/min Body Mass Index:??32.24 kg/m2??Critical Systolic Blood Pressure: 123 mm Hg Body surface area: 2.06 Diastolic Blood Pressure: 77 mm Hg ?? Oxygen Saturation: 98 % ?? Studies Pending All tests and labs ordered during this hospital stay have been completed unless listed below. Pleasediscuss all pending results with your provider listed above in these instructions. ?? Add On Lab Order BUN CBC w/ Differential COVID-19 (2019 Novel Coronavirus) PCR Creatinine Electrolytes (Lytes) Hold Lavender Tube (BB) Ionized Calcium Magnesium Level Phosphorus Level What to do next Instructions From Your Doctor No heavy lifting greater than 10lbs until follow up appt No strenuous activity until follow up appt No bathing, swimming, or submerging in water until follow up appt - shower ok Tylenol PRN mild-moderate pain; Oxycodone PRN severe pain Augmentin x7 days - to be completed on 10/29/22 Discharge Orders Scheduled Follow-Up Appointments Wednesday 9:15 AM EST ?? With: Su Martinez NP Where: [facility] [address] [place] [address]- You Need to Schedule the Following Appointments Follow Up with??Omar KUMAR, Vijay Grider When??Within 1 to 2 weeks Why: Clinic will call to schedule Where: ?? Discharge Medications KRISTINA IRIZARRY :1955 Visit Date:10/13/2022 Medications: Please continue your medications until treatment is completed or stopped by your provider. Medications not listed below should be discontinued. Discuss any questions related to medications with your provider. What How Much When Instructions Next Dose New Acetaminophen (acetaminophen 325 mg oral tablet) 3 tab(s) Oral Every 6 hours Tonight 10/27 10 PM New Amoxicillin-Clavulanate (amoxicillin-clavulanate 500 mg-125 mg oral tablet) 1 tab(s) Oral Daily Duration: 2 Days 1 tablet daily, ensure AFTER dialysis on dialysis days. ?? Printed Prescription Tomorrow 10/28 9 am New Multivitamin (Nephrocap Capsule) 1 capsule Oral Daily Tomorrow 10/28 9 am New Oxycodone (oxyCODONE 5 mg oral tablet) 2 tab(s) Oral Every 6 hours as needed for Pain , Severe Duration: 3 Days Printed Prescription Tonight 10/27 10 PM as needed New Polyethylene Glycol 3350 (MiraLax Powder) 17 gram Oral Daily Tomorrow 10/28 9 am New Senna (Senna 8.6 mg oral tablet) 2 tab(s) Oral Daily Tomorrow 10/28 9 am New Sevelamer (sevelamer carbonate 800 mg oral tablet) 2 tab(s) Oral 3 times a day with meals Tonight 10/27 with dinner Unchanged Allopurinol (allopurinol 100 mg oral tablet) 1 tab Oral Twice a day Tonight 10/27 9 PM Unchanged Aspirin (Aspirin Enteric Coated 81 mg oral delayed release tablet) 1 tab(s) Oral Daily in the morning TAKE 1 TABLET BY MOUTH ONCE A DAY ?? Tomorrow 10/28 9 am Unchanged Atorvastatin (atorvastatin 20 mg oral tablet) 1 tab(s) Oral Daily at Bedtime Tonight 10/27 9 PM Unchanged Bumetanide (bumetanide 2 mg oral tablet) See instructions TAKE 2 TABLETS BY MOUTH TWICE A DAY ?? Tomorrow 10/28 9 am Unchanged Calcium Acetate (calcium acetate 667 mg oral capsule) See instructions TAKE 1 CAPSULE BY MOUTH 3 TIMES A DAY WITH EACH MEAL ?? Tomorrow 10/28 9 am Unchanged Carvedilol (carvedilol 25 mg oral tablet) 1 tab(s) Oral Twice a day Tonight 10/27 9 PM Unchanged Clopidogrel (Plavix 75 mg oral tablet) 1 tab(s) Oral Daily Duration: 30 Days Tomorrow 10/28 9 am Unchanged Glimepiride (glimepiride 4 mg oral tablet) 2 tab(s) Oral Daily in the morning Tomorrow 10/28 9 am Unchanged Insulin Glargine (Basaglar KwikPen 100 units/ mL subcutaneous solution) INJECT 35 UNITS SUBCUTANEOUSLY ONCE A DAY 5 am ?? Tomorrow 10/28 9 am Unchanged Tamsulosin (tamsulosin 0.4 mg oral capsule) 1 capsule Oral Daily Tomorrow 10/28 am Test Results Below is a partial list of the most recent Laboratory test results done prior to this discharge. You may have had other tests and procedures not included in this list. Please discuss all test results with your provider. APTT (10/14/2022) ???APTT - 30.2 seconds Basic Metabolic Panel (10/13/2022) ???Sodium - 130 mmol/L???Potassium - 4.9 mmol/L???Chloride - 90 mmol/L???Bicarbonate Level - 23 mmol/L???Anion Gap - 17???Glucose Level - 277 mg/dL???BUN - 87 mg/dL???Creatinine-Blood - 5.4 mg/dL???Estimated GFR Creatinine - 11 ML/MIN/1.73 M2???Calcium - 9.4 mg/dL BUN (10/27/2022) ???BUN - 57 mg/dL C-REACTIVE PROTEIN (10/13/2022) ???C-Reactive Protein - 12.5 mg/dL CBC w/ Differential (10/27/2022) ???WBC - 10.5 k/mm3???RBC - 4.75 m/mm3???Hgb - 13.3 Gm/dL???Hct - 42.8 %???MCV - 90.1 femtoliters???MCH - 28.0 pg???MCHC - 31.1 g/dL???Platelet Count - 210 k/mm3???RDW-SD - 51.7 femtoliters???MPV - 8.6femtoliters???Nucleated RBC (Automated) - 0.0 #/100 WBC'S???Abs. NRBC - 0.0 k/mm3???Abs. Neut - 8.1 k /mm3???Abs. Lymph - 1.1 k/mm3???Abs. Dixie - 0.6 k/mm3???Abs. Eo - 0.4 k/mm3???Abs. Baso - 0.1 k/mm3???Neut % - 76.7 %???Lymph % - 10.2 %???Dixie % - 5.9 %???Eos % - 4.1 %???Baso % - 0.6 %???Imm Gran - 2.5 %???Abs. Imm Gran - 0.3 k/mm3 COVID-19 (2019 Novel Coronavirus) PCR (10/26/2022) ???COVID-19 PCR Specimen Source - NASAL???COVID-19 PCR Result - NEGATIVE COVID-19, RSV, and Flu A/B, Rapid PCR (10/21/2022) ???Influenza A PCR - NEGATIVE???Influenza B PCR - NEGATIVE???RSV PCR - NEGATIVE???COVID-19 PCR Specimen Source - NASAL???COVID-19 PCR Result - NEGATIVE Creatinine (10/27/2022) ???Creatinine-Blood - 6.1 mg/dL???Estimated GFR Creatinine - 10 ML/MIN/1.73 M2 GLUCOSE POC (10/27/2022) ???Glucose, POC - 192 mg/dL Ionized Calcium (10/27/2022) ???Calcium, Ionized pH Corrected - 1.24 mmol/L Lytes (10/27/2022) ???Sodium - 134 mmol/L???Potassium - 5.1 mmol/L???Chloride - 93 mmol/L???Bicarbonate Level - 28 mmol/L???Anion Gap - 13 Magnesium Level (10/27/2022) ???Magnesium - 2.4 mg/dL Phosphorus Level (10/27/2022) ???Phosphorus - 6.0 mg/dL ProBNP (10/13/2022) ? ?Nt-Probnp - >02968 pg/mL PROTIME PROFILE (10/14/2022) ???INR - 1.1???Protime (PT) - 11.8 seconds SEDIMENTATION RATE,AUTOMATED (10/13/2022) ???Sed Rate - 72 mm/hr SOURCE EXPOSURE PROFILE (10/17/2022) ???Hepatitis B Surface Antigen - NEGATIVE???Hepatitis C Ab - NEGATIVE???HIV 4th Generation Ab-Ag Result - NEGATIVE Type and Screen (10/13/2022) ???Blood Type - A Positive???Antibody Screen - Negative Allergies (NKA means No Known Allergies) No Known Medication Allergies Problems Active Problems??(4) Dry gangrene?? End-stage renal disease?? Obese class I?? Peripheral vascular disease?? Education Materials Below is the list of Educational Leaflet Providered with your Discharge Instructions. BVS-Wound Care Wound Vac?? BVS-Special Instructions?? Valuables and Belongings I fully understand and agree that [facility] accepts no responsibility for all my personal property including clothing, toilet articles, radios, jewelry, dentures, hearing aids, rings, money, or any other property that is in my possession or is brought to me after admission. I understand certain valuables may be placed in a hospital safe for a short period of time. I understand that the hospital is not liable for loss or damage due to accident, fire, or other natural occurrence while said property is in the safe. I accept full responsibility for any personal property that I keep with me, and will not hold the hospital responsible in case of loss or disappearance. I acknowledge that i have been encouraged to send valuables and belongings home. ?? No Valuables/Belongings: No valuables/belongings present Date for Pt to Sign Valuables/Belongings: 10/14/22 12:20:00 ?? Other Discharge Information ?? Wound Assessment?? Wound Assessment?? Wound Location I: Great toe, left Wound Type I: Diabetic Wound Location II: Great toe, left Wound Type II: Arterial/Venous Wound Vac Location: right heel Dressing Intact Wound: Yes Suction Setting Wound: 125 mm Hg Dressing Change Wound: Physician ? Case Management Discharge Plan?? Discharge Plan?? Discharge Agency Information?? Discharge Level of Care at Discharge: half-way facility Agency Bond Underwriter #1: intake/allscripts Discharge Transportation Arranged: [facility] [phone] [facility] [phone] Service Categories #1: Occupational Therapy, Physical Therapy, Nursing Home, Other: Hemodialysis Mode of Transportation Arranged: Ambulance Service Comments #1: You are being discharged to [facility] for skilled rehab (retirement, physical and occupational therapy, and hemodialysis). Discharge Arranged Transport Date/Time: 10/27/22 17:30:00 Name of Person Notified of Transfer: Patient Discharge Nursing Homes/Rehab Facilities: [facility] ?? Discharge VNA/Hospice/Home Care: [facility] ? Pulmonary Rehab Status?? Pulmonary Rehab Discharge Status?? Respiratory Rate: 18 br/min ? Common Emergency Awareness Tips IS IT A STROKE? Act FAST and Check for these signs: FACE Does the face look uneven? ARM Does one arm drift down? SPEECH Does their speech sound strange? TIME Call at any sign of stroke ?? Heart Attack Signs Chest discomfort: Most heart attacks involve discomfort in the center of the chest and lasts more than a few minutes, or goes away and comes back. It can feel like uncomfortable pressure, squeezing, fullness or pain. Discomfort in upper body: Symptoms can include pain or discomfort in one or both arms, back, neck, jaw or stomach. Shortness of breath: With or without discomfort. Other signs: Breaking out in a cold sweat, nausea, or lightheaded. Remember, MINUTES DO MATTER. If you experience any of these heart attack warning signs, call to get immediate medical attention! ?? Smoking can increase your chances of developing chronic health problems and can cause harmful effects to other family members in your house. If you smoke, you are strongly encouraged to quit. Please call [facility] [employer] [facility] at [phone] or [phone] ([phone] or log in to [email or web address] for referrals to smoking cessation programs. ?? The National Suicide Prevention Hotline is available 10/05 if you or someone you know needs to find areason to keep living. By calling 1-598-622-[employer] (5341) you'll be connected to a skilled, trained counselor at a crisis center in your area. INPATIENT DISCHARGE INSTRUCTIONS SIGNATURE PAGE KRISTINA IRIZARRY Location:[facility] Registration Date and Time:10/13/2022 17:17 EST Primary Care Physician: Not on Staff, PCP I KRISTINA IRIZARRY, have received the above patient education materials/instructions and have verbalized understanding. If ambulance or transport services are being used I further acknowledge being givena choice of service. ?? If you need to contact me, please call me at this number: . 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 75 Vascular Wound Care Wound Vac ?? Wound VAC at 120 mmHg continuous suction. Next vac change due in 2 days. Please wet sponge to assist with removal of sponge. May apply adaptic to wound base prior to applying new VAC sponge to assist with removal of sponge for next dressing change. If VAC dressing is interrupted for >>hrs, please convert to wet-dry dressing. VAC sponge will need to be applied PAPO. ?Charlie KEYS, Barbara Tello: PERFORM Event Display: Patient Education Leaflets Authored Date: BVS-Special Instructions ?? 60 Vascular Special Instructions ?? If you develop fever, chills, increased pain, nausea, vomiting, bleeding, or increased redness or pus around the wound please call the vascular surgery office at . Please take medications as prescribed and do not drive while on narcotic medications. ?? If you have any questions, please call the vascular surgery office at . ?? Please call your Primary Care Provider within 1 week for post hospital follow up and review of yourmedications. ? Event Display: Cardiac Rhythm Strips Authored Date: Amy Tate RN: PERFORM, SIGN, VERIFY Event Display: Case Management Discharge Plan Authored Date: Patient: KRISTINA IRIZARRY Age: 67 years Sex: Male : 1955 Associated Diagnoses: None Author: Amy Tate RN Discharge Plan Case Management Discharge Plan : Case Management Discharge Plan Data 10/16/2022 12:55 EST Discharge Level of Care at Discharge Homehealth/VNA Discharge VNA/Hospice/Home Care [facility] Agency Bond Underwriter #1 intake/allscripts Service Categories #1 Physical Therapy, Nursing Home Service Comments #1 You are being dicharged with [facility] for retirement and physical therapy at home. If you do not hear from this agency withing 24-48 hrs of discharge, please reachout to them directly. Name of Person Notified of Transfer PatientBHSPowerscribe , CIS S: TRANSCRIMichelle Ley MD: VERIFY Event Display: Result: Authored Date: PROCEDURE: CT Angio Abdomen Aorta Bilat IlioFem INDICATION: Hx of Present Illness: bilateral foot pain. reports gangrenous right big toe and left heel. pain is worsening and radiating up left leg. unable to bear weight.; Reason: Claudication; Clinical Question(s): Obstruction; Order Comment: RELEVANT CLINICAL INFORMATION/CLINICAL QUESTION: Obstruction TECHNIQUE: CT angiography of the abdomen and lower extremities was performed using contiguous helical images from the diaphragm to the feet. 100 cc of Omnipaque 300 was administered intravenously. One mm axial images were reconstructed. Sagittal and coronal reformatted images were rendered. High resolution multiplanar, volume rendered and MIP images were created and used to evaluate the abdominal aorta and lower extremity arteries in multiple projections on an independent workstation, with permanent images saved to PACS. Automatic tube current modulation was used to optimize exposure parameters. RADIATION DOSE PARAMETERS: CTDIvol Body: 34.64 mGy, DLP Body: 1406 mGy*cm. COMPARISON: None FINDINGS: The abdominal aorta is patent and nonaneurysmal. There is moderate calcified eccentric atherosclerosis. The celiac artery is patent with mild to moderate eccentric stenosis proximally and moderate severe atherosclerosis of the tortuous splenic artery. The superior mesenteric artery is patent with moderate focal plaque at its origin and proximalmost aspect. Minimal atherosclerosis distally. There is branch vessels severe atherosclerosis seen of a SMAbranch vessel in the left mid abdomen, example series 604 image 57. The inferior mesenteric artery is is a tiny vessel but is patent. The right renal artery is with single right renal artery with patency. Mild atherosclerosis at the origin. The left renal artery is with single left renal artery which is patent. Right side: The common iliac artery is there is moderate eccentric plaque in the common iliac artery with patency The external iliac artery is moderate eccentric plaque with patency The internal iliac artery is severe diffuse atherosclerosis. The common femoral artery is severe atherosclerosis with 50% luminal narrowing at the mid common femoral artery The superficial femoral artery is with severe atherosclerosis throughout. There is focal severe plaque resulting in near occlusion to occlusion at the mid vessel. There are collateral vessels present. The lower superficial femoral artery is completely occluded at series 601 image 206 The deep femoral artery is is with severe atherosclerosis and multiple areas of occlusion The popliteal artery is patency with reconstitution of flow from collaterals with severe atherosclerosis. There is occlusion at the distal vessel from calcified severe plaque. The anterior tibial artery, posterior tibial artery, and peroneal artery are with severe areas of atherosclerotic calcified plaque and occlusion. Collateral vessels are present. There is calcified vessels of the lower leg with collateral vessels present in limited evaluation ofpatency. There is at least patency to the level of the mid lower leg with occluded posterior tibial artery more distally. The posterior tibial artery is reconstituted at the level of the calcaneus. Left side: The common iliac artery is with moderate atherosclerosis The external iliac artery is with moderate atherosclerosis The internal iliac artery is with severe circumferential atherosclerosis The common femoral artery is with severe atherosclerosis with 75% luminal narrowing at the mid vessel secondary to calcified plaque, example series 604 image 121 The superficial femoral artery is with severe atherosclerosis throughout its course. The vessel is with areas of near occlusion at the distal aspect with complete occlusion seen of the distal vessel atseries 601 image 218 The deep femoral artery is with multifocal areas of severe atherosclerosis and narrowing with occlusion The popliteal artery is his with severe atherosclerosis with greater than 50% luminal narrowing. Collateral vessels are present. Evaluation of the lower leg vessels is limited by degree of calcified atherosclerosis and small vessel size. There is severe calcified plaque limiting evaluation of the lower leg vessels including the anteriortibial artery, posterior to the artery, and peroneal trunk. The vessels are occluded in appearance with calcified plaque and collateral vessels present. OTHER FINDINGS: Evaluation of nonvascular findings is performed only in arterial phase. There is a moderate right-sided pleural effusion. There is adjacent atelectasis. There is cardiomegaly. 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 There is trace pericardial fluid. There is diffuse hepatic steatosis. There is nodular appearance of the lower liver. There is cholelithiasis. The spleen is enlarged. No peripancreatic stranding or fluid. The kidneys are not hydronephrotic. Is no focal mass or hematoma and adrenal glands with mild diffuse thickening of the left adrenal gland. A tiny hiatal hernia is present. Bowel loops are nondilated. A normal appendix is seen in the right lower quadrant. Distended urinary bladder. Prostate gland is not enlarged. Diffuse calcifications of the vas deferens. There is small volume of ascites, predominantly perihepatic. Visualized osseous structures show moderate degenerative changes of the lower lumbar spine. No acutefracture at the hip joints. No acute fracture at the knee joints. Moderate osteoarthritic changes. There is swelling and soft tissue protruding at the level of the great toe. The area of skin defect is complete into the level of the bone at the level of the second toe on theright at series 306 image 498. No drainable collection. 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 There is reconstitution of flow, with patency of the popliteal arteries with severe multifocal areasof near occlusion. Multifocal occlusion in the lower leg vessels. Severe calcified atherosclerosis limits evaluation of the lower leg vessels given artifact from calcifications. There are collateral vessels present which also demonstrate calcifications. This suggests chronic underlying lower leg vascular disease. There is also diffuse eccentric atherosclerosis of the visceral branch vessels, supporting underlying microvascular cause. There is swelling and soft tissue protruding at the level of the great toe. There is soft tissue defect which is seen extending to the bone. This can be directly examined/probe. There is cirrhotic appearance of the liver. Small volume of ascites in the upper abdomen. Cholelithiasis. Cardiomegaly, coronary artery atherosclerosis, and moderate right pleural effusion. WSN: [id number] Ordering Physician: Milana Elmore Dictated By: Michelle Rodney MD Dictated Date/Time: 10/13/22 3:03 pm Reviewed By: Michelle Rodney MD Signed By: Michelle Rodney MD Signed Date/Time: 10/13/22 3:03 pm Transcribed By: ED Transcribed Date/Time: 10/13/22 2:49 pm Hospital Progress note Bibi Gomez RN: PERFORM, SIGN, VERIFY Event Display: Progress Note Hospital Authored Date: Patient: KRISTINA IRIZARRY Age: 67 years Sex: Male : 1955 Associated Diagnoses: None Author: Bibi Gomez RN Findings Narrative/Incidental pt tolerated 3 hrs 30 min tx well 1.0 kg removed no issues during tx no s/s of hypot/hypertension sob or resp/distress vb -6.9 % vss bp 132/67 hr 59 r 16 . Discharge Information Case Management Discharge Plan : Case Management Discharge Plan Data 10/27/2022 12:23 EST Discharge Level of Care at Discharge half-way facility Discharge Nursing Homes/Rehab Facilities [facility] Discharge Transportation Arranged [facility] [address] [facility] [phone] Discharge Arranged Transport Date/Time 10/27/2022 17:30 Mode of Transportation Arranged Ambulance Agency Bond Underwriter #1 intake/allscripts Service Categories #1 Occupational Therapy, Physical Therapy, Nursing Home, Other: Hemodialysis Service Comments #1 You are being discharged to [facility] for skilled rehab (retirement, physical and occupational therapy, and hemodialysis). Name of Person Notified of Transfer Patient Rehabilitation Discharge : Rehab Discharge Index 10/25/2022 14:02 EST Comments on treatment indicated adls funclt mob safety pt edu endurance UE function Full chart review completed Yes Hospital course Hospital courseChaAntoni HORN, Maria Guadalupe: PERFORM, SIGN, VERIFY Event Display: Progress Note Hospital Authored Date: [id number] Patient: KRISTINA IRIZARRY Age: 67 years Sex: Male : 1955 Associated Diagnoses: None Author: Roshan HORN, Maria Guadalupe Findings Problem Related to Alteration in Genitourinary : Alteration in Genitourinary Function/new 10/27/2022 10:00 EST Alteration in Status Related to RF requiring hemodialysis Goals & Outcomes, Genitourinary Pt will achieve normal/improved fluid balance, Pt will maintainadequate GI function appropriate for pt, Pt will maintain adequate function appropriate for pt, Pt will maintain normal fluid balance, Pt will resume normal pattern of elimination, Pt/caregiver willstate understanding of self-care skills, Pt will be free from complications of hemodialysis Interventions, Assess/monitor/maintain Genitourinary status, Assist & encourage pt with meticulous dina care, Encourage PO fluid intake as allowed by diet, Assess & monitor for uremitc pruritis, Assess & monitor hemodialysis access device, AV fistula/graft: Assess/monitor presence thrill/bruit, Coordinate lab draws w/dialysis unit whenever possible, Identify & document access device location, Document date/time of last dialysis treatment, Permacath: assess/monitor dressing and security of line, Permacath: assess/monitor exit site & tunnel, Temporary: Assess site, sutures, s/s of infection Goals/Interventions, Genitourinary Yes Genitourinary, Problem Start 10/26/2022 18:28 Reviewed Plan with, Genitourinary Patient Patient Progression, Genitourinary Patient progressing according to plan Genitourinary, Problem Ongoing Yes . Alteration in Tissue Perfusion : Alteration in Tissue Perfusion 10/27/2022 10:00 EST Alteration Tissue Perfusion related to Vascular disease, Vascular Surgery Goals & Outcomes: Tissue perfusion Pt will maintain optimal perfusion to vital organs, Pt will resume/maintain adequate peripheral circulation, Pt will experience improved tissue perfusion, Pt will achieve progressive healing of injured area, Pt will be hemodynamically stable, Pt will achieve norm al/improved/optimal neuro status, Pt will return to baseline respiratory function, Pt will maintain adequate GI function appropriate for pt, Pt will maintain adequate function appropriate for pt, Ptwill be discharged without infection, Pt/ S.O. will state understanding of plan of care, Pt/S.O. will verbalize understanding of the D/C plan Interventions: Tissue Perfusion Assess for s/s of infection of lines, drains, incisions, Assess/Monitor activity tolerance, Assess/Monitor cardiac dysrhythmias, Assess/Monitor CMS to affected extremity, Assess/Monitor mental status, Assess/Monitor peripheral pulses & capillary refill, Assess/Monitor presence & degree of edema, Assess/Monitor secretions & drainage for s/s of infection, Assess/Monitor vital signs per unit standard & prn, Discuss discharge needs with immigration case manager, Ensure case management or social service consult, Maintain precautions per Infection Control Standards, Monitor blood loss, Monitor Intake & Output, Monitor labs & report variances to provider, Monitor response to fluid replacement, Monitor size & character of hematoma, Elevate limbs, Physical assessment per unit standards, Position for comfort, Provide info on community resources for education, support, Report changes in hemodymamics to MD, Teach pt/caregiver discharge plan & follow up care, Teach pt/caregiver on plan of care, treatment, s/s & meds, Teach pt/caregiver on use of painscale, Teach Pt/caregiver signs & symptoms of infection, Assess circulation of affected limb, Assess for s/s of pulmonary embolism, Assess pulse in all extremities, Avoid exercising & massagingaffected extremity, Avoid use of pillows under the knees Goals/Interventions, Tissue Perfusion Yes Tissue Perfusion, Problem Start 10/24/2022 9:00 Reviewed Plan with, Tissue Perfusion Patient Patient Progression, Tissue Perfusion Pt progressing according to plan . Narrative/Incidental AAOx4. HD today. Wound vac to R heel. No events this shift, systems as documented. Up with SBA to BSC, NWB to R leg. Prn pain meds on board for 07/27 pain to R foot. 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 BOLA Pearson reviewed medications, follow up care and dc instructions with pt. . Discharge Information Case Management Discharge Plan : Case Management Discharge Plan Data 10/27/2022 12:23 EST Discharge Level of Care at Discharge half-way facility Discharge Nursing Homes/Rehab Facilities [facility] Discharge Transportation Arranged [facility] [address] [facility] [phone] Discharge Arranged Transport Date/Time 10/27/2022 17:30 Mode of Transportation Arranged Ambulance Agency Bond Underwriter #1 intake/allscripts Service Categories #1 Occupational Therapy, Physical Therapy, Nursing Home, Other: Hemodialysis Service Comments #1 You are being discharged to [facility] for skilled rehab (retirement, physical and occupational therapy, and hemodialysis). Name of Person Notified of Transfer Patient Rehabilitation Discharge : Rehab Discharge Index 10/25/2022 14:02 EST Comments on treatment indicated adls funclt mob safety pt edu endurance UE function Full chart review completed Yes Hospital course Hospital courseAce Rhodes: PERFORM, SIGN, VERIFY Event Display: Progress Note Hospital Authored Date: Patient: KRISTINA IRIZARRY Age: 67 years Sex: Male : 1955 Associated Diagnoses: None Author: Ace Rhodes [facility] Progress Note Interval History No overnight events Seen and examined on HD, no complaints Plan for discharge to [facility] today Review of Systems Review of Systems Constitutional: no fever, no night sweats. Respiratory: no shortness of breath. Cardiovascular: no peripheral edema, no chest pain. Gastrointestinal: no abdominal pain. Physical Examination Vital Signs Vitals : VITALS 10/27/2022 10:44 EST Temperature 98.2 DegF Temperature Route Oral Pulse Rate 63 bpm Respiratory Rate 18 br/min Systolic Blood Pressure 124 mm Hg Diastolic Blood Pressure 71 mm Hg Blood pressure sites Arm, right Mean Arterial Pressure 89 mm Hg Pulse Pressure 53 mm Hg Oxygen Saturation 95 % Mode of Delivery (Oxygen) Room air . General Appearance NAD. HEENT Moist mucous membranes. Respiratory Lungs: CTA. Cardiac Cardiac: no M/G/R. Rhythms: RRR. Abdomen/GI Abdomen: soft. Extremities No edema. Neurologic Alert & oriented x 3 . Results Review 7 Day Results Results Laboratory : LABORATORY 10/27/2022 0:37 EST WBC 10.5 k/mm3 RBC 4.75 m/mm3 Hgb 13.3 Gm/dL L Hct 42.8 % MCV 90.1 femtoliters MCH 28.0 pg MCHC 31.1 g/dL L Platelet Count 210 k/mm3 RDW-SD 51.7 femtoliters H MPV 8.6 femtoliters L Nucleated RBC (Automated) 0.0 #/100 WBC'S Abs. NRBC 0.0 k/mm3 Abs. Neut 8.1 k/mm3 H Abs. Lymph 1.1 k/mm3 Abs. Dixie 0.6 k/mm3 Abs. Eo 0.4 k/mm3 Abs. Baso 0.1 k/mm3 Neut % 76.7 % H Lymph % 10.2 % L Dixie % 5.9 % Eos % 4.1 % Baso % 0.6 % Imm Gran 2.5 % Abs. Imm Gran 0.3 k/mm3 Sodium 134 mmol/L Potassium 5.1 mmol/L Chloride 93 mmol/L L Bicarbonate Level 28 mmol/L Anion Gap 13 BUN 57 mg/dL H Creatinine-Blood 6.1 mg/dL H Estimated GFR Creatinine 10 ML/MIN/1.73 M2 Calcium, Ionized pH Corrected 1.24 mmol/L Phosphorus 6.0 mg/dL H Magnesium 2.4 mg/dL H Impression and Plan Kristina Irizarry is a 67-year-old man with a PMH of end-stage renal disease on dialysis TTS with failedAV fistula placement secondary to steal syndrome, diabetes, obesity, and peripheral vascular diseasewho presented to the ED 10/13/2022 for evaluation of a gangrenous foot. 1. 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 HTN / Volume Chronically, patient takes Bumex 2mg BID and Coreg 25mg BID. Plan - Continue Bumex 2mg BID and Coreg 25mg BID. 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 Plan - No need for iron or ESAs 4. Secondary Hyperparathyroidism / MBD Phos 6.0 and ionized calcium 1.24 (10/27). PTH 134 (09/01). Plan - Discontinued calcium acetate due to increased CVD risk - c/w sevelamer 1,600mg TID w/ meals - Renal diet (phos restrict) 5. Bilateral foot wounds s/p bilateral lower extremity angio with SFA/REPACK ROOM WORKER and popliteal artery plasty 08/18/22 right toe debridement and calcanectomy. This does not seem like Calciphylaxis. Thank you for the courtesy of this consult, [facility]ANE will continue monitoring the patient along with you please do not hesitate to call us with any further questions Ace Arellano PA-C [facility] [address] , [address] Available by [employer] .doppler Lower extremity vein - bilateral BHSPowerscribe , CIS S: TRANSCRIBE Mary Colon MD: VERIFY Event Display: Result: Authored Date: [id number] US Doppler Ext Lower Venous Bilat Reason: Swelling Extremities; Clinical Question(s): Thrombosis. COMPARISON: None IMAGING TECHNIQUE: Ultrasound of the veins from the groin through the calf was performed using grayscale, color, and spectral Doppler ultrasound assessing for complete compressibility and normal flow characteristics. FINDINGS: RIGHT LOWER EXTREMITY: Common femoral vein: The right common femoral vein is not visualized due to overlying bandages. Femoral vein: Patent. No thrombosis. Popliteal vein: Patent. No thrombosis. Gastrocnemius veins: The visualized portions are patent without evidence of thrombosis. Peroneal veins: The visualized portions are patent without evidence of thrombosis. Posterior tibial veins: The visualized portions are patent without evidence of thrombosis. LEFT LOWER EXTREMITY: Common femoral vein: Patent. No thrombosis. Femoral vein: Patent. No thrombosis. Popliteal vein: Patent. No thrombosis. Gastrocnemius veins: The visualized portions are patent without evidence of thrombosis. Peroneal veins: The visualized portions are patent without evidence of thrombosis. Posterior tibial veins: The visualized portions are patent without evidence of thrombosis. OTHER FINDINGS: Subcutaneous edema is seen in both calf. IMPRESSION: 1. Nonvisualization of the right common femoral vein, is obscured by overlying bandage. 2. Otherwise, no evidence of deep venous thrombosis. WSN: [id number] Ordering Physician: Tana Wright Dictated By: Mary Colon MD Dictated Date/Time: 10/17/22 5:48 pm Reviewed By: Mary Colon MD Signed By: Mary Colon MD Signed Date/Time: 10/17/22 5:48 pm Transcribed By: CSB Transcribed Date/Time: 10/17/22 5:45 pm Patient Care team information Care Team PersonnelName: Sharlene Castorena RN Position: [facility] RN Member Role: Primary Care Nurse Name: Chucho Navarro MD Position: [facility] Physician (General Medicine) Member Role: Lifetime Consulting Physician Address: Address: [address] [place] [address], [address] [place] [address]- Name: Jaz Milligan Position: [facility] Outreach Member Role: Lifetime Consulting Physician Name: Cristiano Rendon III, RN Position: [facility] RN Member Role: Primary Care Nurse Name: Ace Rhodes Position: [facility] Associate Professional Member Role: Lifetime Consulting Provider Address: Address: [address] [place] [address]- Name: Not on Staff, PCP Position: [facility] Physician (General Medicine) Member Role: PCP Name: Ruby Negrete Position: [facility] Outreach Member Role: Lifetime Consulting Physician Name: Sunil Mosher MD Position: [facility] Renal MD Member Role: Lifetime Consulting Physician Address: Address: [address] [place] [address] [address] [facility] [place] [address]- Name: Bibi Gomez RN Position: [facility] RN Member Role: Primary Care Nurse Name: Chari Elliott RN Position: [facility] RN Member Role: Primary Care Nurse Name: A[facility] Attending Position: [facility] ED Medicine MD Name: Aida Dawson Position: [facility] ED TA [facility] Member Role: Rock Worker Name: Jaz Frost RN Position: [facility] ED RN W/OE and Tasks Member Role: Patient Care Provider Name: Tova Mcfarland Position: [facility] ED OA Charge Member Role: ED Associate Name: Sangeetha Joe MD Position: [facility] Resident Member Role: ED Resident Address: Address: [address] [place] [address]- Care Team Related PersonsName: TYLER IRIZARRY Address: home [address] [place] [address] Name: TERESA LIM Address: home [address] [place] [address]
--- OUTSIDE RECORDS SUMMARY | 2022-11-05 07:16 | XMS_ITS | Continuity of Care Document ---
:1955 Author Organization [facility] Address [address] [place] [address]- Care Team Providers Name Role Phone Guillermina KUMAR, Chay Primary Care Physician En[place] [facility] Date(s): 05/21/21 - 05/28/21 [facility] [address] [place], [place] [address] Attending Physician: Jacqueline Altamirano NP Admitting Physician: Adarsh KEYS, Jacqueline Gorman Referring Physician: Chay Sarmiento MD Allergies, Adverse [...] 03/28/21 9:22:00 EDT, Route to Pharmacy Electronically, [facility], 167.64, cm, 03/28/21 6:14:00 EDT, Height, [...] opioid drug. Start Date: 04/09/21 Status: Ordered Vital Signs Most recent to oldest [Reference Range]: 1 Height 167.64 cm (05/21/21 8:51 AM) Weight 100 kg (05/21/21 8:51 AM) Oxygen Saturation [94-100 %] 98 % (05/21/21 8:51 AM) Pulse Rate [55-90 bpm] 72 bpm (05/21/21 8:51 AM) Body Mass Index [18.5-24.99] 35.58 *>HHI* (05/21/21 8:51 AM) Blood Pressure [90-138/55-84 mm Hg] 162/60 mm Hg *H* (05/21/21 8:51 AM) Mode of Delivery (Oxygen) Room air (05/21/21 8:51 AM) Blood pressure sites Arm, right (05/21/21 8:51 AM) Weight Obtained Via Patient/family stated (05/21/21 8:51 AM)
--- OUTSIDE RECORDS SUMMARY | 2022-11-05 07:16 | XMS_ITS | Continuity of Care Document ---
:1955 Author Organization [facility] Address [address] [place] [address]- Care Team Providers Name Role Phone Guillermina KUMAR, Chay Primary Care Physician Unavailable Encounter [facility] [place] Date(s): 09/05/21 - 09/05/[address] [address] Discharge Disposition: A-D/C Home Attending Physician: Torsten Mota MD Admitting Physician: Torsten Mota MD Referring Physician: Torsten Mota MD Allergies, Adverse [...] 03/28/21 9:22:00 EDT, Route to Pharmacy Electronically, [facility], 167.64, cm, 03/28/21 6:14:00 EDT, Height, [...] Ordered Vital Signs Most recent to oldest 1 2 3 [Reference Range]: Height 167.6 cm 167.6 cm (09/05/21 10:04 AM) (09/01/21 4:58 PM) Oxygen Saturation [94-100 93 % 99 % 98 % %] *L* (09/05/21 3:15 PM) (09/05/21 3:0 0 PM) (09/05/21 3:50 PM) Pulse Rate [55-90 bpm] 66 bpm 69 bpm (09/05/21 1:45 PM) (09/05/21 10:04 AM) Blood Pressure 149/69 mm Hg 153/79 mm Hg 158/73 mm Hg [90-138/55-84 mm Hg] *H* *H* *H* (09/05/21 3:50 PM) (09/05/21 3:15 PM) (09/05/21 3:00 PM) Respiratory Rate [16-30 21 br/min 19 br/min 18 br/mi n br/min] (09/05/21 3:50 PM) (09/05/21 3:15 PM) (09/05/21 3:00 PM) Temperature [96.8-100.4 97.4 DegF 97.2 DegF 97.5 Deg F DegF] (09/05/21 3:50 PM) (09/05/21 3:15 PM) (09/05/21 1:45 PM) Liters per Minute 6 L/min (09/05/21 1:45 PM) Mode of Delivery (Oxygen) Room air Room air Room a ir (09/05/21 3:50 PM) (09/05/21 3:15 PM) (09/05/21 3:00 PM) Blood pressure sites Arm, right Arm, right Arm, right (09/05/21 3:50 PM) (09/05/21 3:15 PM) (09/05/21 3:00 PM) Temperature Route Oral Temporal Temporal (09/05/21 3:50 PM) (09/05/21 3:15 PM) (09/05/21 1:45 PM) Dry Weight 101.6 kg (09/05/21 10:04 AM) Dry Weight Obtained Via Standing scale (09/05/21 10:04 AM)
--- OUTSIDE RECORDS SUMMARY | 2022-11-05 07:16 | XMS_ITS | Continuity of Care Document ---
:1955 Author Organization [facility] Address [address] [place] [address]- Care Team Providers Name Role Phone Not on Staff, PCP Primary Care Physician Unavailable Encounter [facility] [place] Date(s): 09/24/22 - 10/01/22 [facility] [address] [place], [place] [address] Attending Physician: Torsten Mota MD [...] tablet, 1 Refills, Maintenance, 09/07/22 14:03:00 EST, [facility], 168, cm, 06/25/22 15:37:00 EDT, Height, 90.8, kg, 04/27/22 16:09:00 EDT, Dry Weight Start Date: 09/07/22 Status: Orderedcalcium acetate 667 mg oral capsule See Instructions, TAKE 1 CAPSULE BY MOUTH 3 TIMES A DAY WITH EACH MEAL, # 270 capsule, 1 Refills, [facility], 167, cm, 03/18/22 8:43:00 EDT, Height, 90.8, [...] 05/02/22 8:00:00 EDT, Route to Pharmacy Electronically, [facility]/pharmacy #[id number], Partial fill upon patient request if [...] Active Peripheral Confirmed Active vascular disease 1ARA Paicines TU,TH,SAT Vital Signs Most recent to oldest [Reference Range]: 1 Height 168 cm (09/24/22 3:22 PM) Weight 88.45 kg (09/24/22 3:22 PM) Oxygen Saturation [94-100 %] 92 % *L* (09/24/22 3:22 PM) Pulse Rate [55-90 bpm] 72 bpm (09/24/22 3:22 PM) Body Mass Index [18.5-24.99 kg/m2] 31.34 kg/m2 *>HHI* (09/24/22 3:22 PM) Blood Pressure [90-138/55-84 mm Hg] 118/68 mm Hg (09/24/22 3:22 PM) Mode of Delivery (Oxygen) Room air (09/24/22 3:22 PM) Weight Obtained Via Patient/family stated (09/24/22 3:22 PM) Note Bebeto English: PERFORM, SIGN, VERIFY Event Display: Patient Education/Instruction Authored Date: [id number] [facility] [address] Clinical Summary Name KRISTINA IRIZARRY Age 67 Years 1955 PCP Not on Staff, PCP PCP Phone Visit Date 09/24/2022 15:18:00 Additional Instructions: Scheduled Appointments?? Future Appointments ?No [...] Orders ?No future orders Vital Signs Height 168 cm Weight 88.45 kg BMI 31.34 kg/m2 Blood Pressure 118 mm Hg/68 mm Hg Temperature Pulse Rate 72 bpm Respiratory Rate 02 Sat Mode of Delivery 92 %/Room air You can now view a summary of your hospital visit from the comfort of your home through a free online portal called [employer]. [employer] is a website that allows you to securely view yourmedical information including discharge summary, medications and follow-up visits. ??You can also send a secure electronic message to your doctor???s office to request appointments, renew medications or just ask a question. You can enroll at [email or web address] or register during your next office visit. [...] primary care provider, you may find a [facility] provider by calling [facility] at [phone]. For information about the plan of care [...] Care Team PersonnelName: Raffaele HORN, Sharlene Position: [facility] RN Member Role: Primary Care Nurse Name: Chucho Navarro MD Position: [facility] Physician (General Medicine) Member Role: Lifetime Consulting Physician Address: Address: [address] [place] [address], [address] Name: Chuckie Milliganica Position: [facility] Outreach Member Role: Lifetime Consulting Physician Name: Ace Rhodes Position: [facility] Associate Professional Member Role: Lifetime Consulting Provider Address: Address: [address] [place] [address] Name: Not on Staff, PCP Position: [facility] Physician (General Medicine) Member Role: PCP Name: Ruby Negrete Position: [facility] Outreach Member Role: Lifetime Consulting Physician Name: Sunil Mosher MD Position: [facility] Renal MD Member Role: Lifetime Consulting Physician Address: Address: [address] [place] [address] [address] [facility], [place] [address]- Care Team Related PersonsName: TYLER IRIZARRY Address: home [address] [place] [address] Name: TERESA LIM Address: home [address] [place] [address]
--- OUTSIDE RECORDS SUMMARY | 2022-11-05 07:16 | XMS_ITS | Continuity of Care Document ---
:1955 Author Organization [facility] Address [address] [place] [address]- Care Team Providers Name Role Phone Not on Staff, PCP Primary Care Physician Unavailable Encounter [facility] [place] Date(s): 12/11/21 - 01/10/22 [facility] [address] [place], [place] [address] Allergies, Adverse Reactions, Alerts No Known [...] Daily in AM Start Date: 02/26/21 Status: OrderedmetOLazone 10 mg oral tablet 1 tablet = 10 mg, By Mouth, Daily in AM, # 30 tablet, 0 Refills, Maintenance, 09/01/21 16:36:00 EST,Tablet, Partial fill upon patient request if the prescription is for a schedule II opioid drug. Start Date: 09/01/21 Status: OrderedPlavix 75 mg oral tablet 75 mg, 1, tablet, By Mouth, Daily, # 30 tablet, Refills 0, Tot. Refills 0, Maintenance, 03/28/21 9:22:00 EDT, Route to Pharmacy Electronically, [facility], 167.64, cm, 03/28/21 6:14:00 [...]
--- OUTSIDE RECORDS SUMMARY | 2022-11-05 07:16 | XMS_ITS | Continuity of Care Document ---
:1955 Author Organization [facility] Address [address] [place] [address]- Care Team Providers Name Role Phone Not on Staff, PCP Primary Care Physician Unavailable Encounter [facility] Date(s): 11/28/19 - 11/28/[address] [address]- [facility] Attending Physician: Julia Escamilla
--- OUTSIDE RECORDS SUMMARY | 2022-11-05 07:16 | XMS_ITS | Continuity of Care Document ---
:1955 Author Organization [facility] Address [address] [place] [address]- Care Team Providers Name Role Phone Guillermina KUMAR, Chay Primary Care Physician Encounter [id number] Date(s): 07/16/21 - 07/23/21 [facility] [address] [place], [place] [address] Attending Physician: Jacqueline Altamirano NP Admitting Physician: [...] 03/28/21 9:22:00 EDT, Route to Pharmacy Electronically, [facility], 167.64, cm, 03/28/21 6:14:00 [...] oldest [Reference Range]: 1 Height 167.64 cm (07/16/21 9:03 AM) Oxygen Saturation [94-100 %] 97 % (07/16/21 9:03 AM) Pulse Rate [55-90 bpm] 80 bpm (07/16/21 9:03 AM) Blood Pressure [90-138/55-84 mm Hg] 122/56 mm Hg (07/16/21 9:03 AM) Blood pressure sites Arm, right (07/16/21 9:03 AM)
--- OUTSIDE RECORDS SUMMARY | 2022-11-05 07:16 | XMS_ITS | Continuity of Care Document ---
:1955 Author Organization [facility] Address [address] [place] [address]- Care Team Providers Name Role Phone Not on Staff, PCP Primary Care Physician Unavailable Encounter [facility] [place] Date(s): 06/15/22 - 09/04/22 [facility] [address] [place], [place] [address] Attending Physician: Su Martinez NP Admitting Physician: Su Martinez NP Referring Physician: Torsten Mota MD Allergies, Adverse [...] 180 tablet, 1 Refills, Maintenance, 08/13/2216:15:00 EDT, [facility], 168, cm, 06/25/22 15:37:00 EDT, Height, 90.8, kg, 04/27/22 16:09:00 EDT, Dry Weight Start Date: 08/13/22 Status: Orderedcalcium acetate 667 mg oral capsule See Instructions, TAKE 1 CAPSULE BY MOUTH 3 TIMES A DAY WITH EACH MEAL, # 270 capsule, 1 Refills, [facility], 167, cm, 03/18/22 8:43:00 EDT, Height, 90.8, [...] 05/02/22 8:00:00 EDT, Route to Pharmacy Electronically, [facility]/pharmacy #[id number], Partial fill upon patient request [...] Care Team PersonnelName: Sharlene Castorena RN Position: [facility] RN Member Role: Primary Care Nurse Name: Lalito Arteaga RN Position: [facility] RN Member Role: Primary Care Nurse Name: Chucho Navarro MD Position: [facility] Physician (General Medicine) Member Role: Lifetime Consulting Physician Address: Address: [address] [place] [address], [address] Name: Jaz Milligan Position: [facility] Outreach Member Role: Lifetime Consulting Physician Name: Eileen CORTES, Ace Le Position: [facility] Associate Professional Member Role: Lifetime Consulting Provider Address: Address: [address] [place] [address]- Name: Not on Staff, PCP Position: [facility] Physician (General Medicine) Member Role: PCP Name: Ruby Negrete Position: [facility] Outreach Member Role: Lifetime Consulting Physician Name: Sunil Mosher MD Position: [facility] Renal MD Member Role: Lifetime Consulting Physician Address: Address: [address] [place] [address] [address] [facility], [place] [address]- Care Team Related PersonsName: TYLER IRIZARRY Address: home [address] [place] [address] Name: TERESA LIM Address: [address] [place] [address]
--- OUTSIDE RECORDS SUMMARY | 2022-11-05 07:16 | XMS_ITS | Continuity of Care Document ---
:1955 Author Organization [facility] Address [address] [place] [address]- Care Team Providers Name Role Phone Guillermina KUMAR, Chay Primary Care Physician [id number] Date(s): 04/02/21 - 05/09/21 [facility] [address] [place], [place] [address] Attending Physician: Torsten Mota MD Admitting [...] 03/28/21 9:22:00 EDT, Route to Pharmacy Electronically, [facility], 472.64, edward, 03/28/21 6:14:00 EDT, Height, 99.7, kg, [...]
--- OUTSIDE RECORDS SUMMARY | 2022-11-05 07:16 | XMS_ITS | Continuity of Care Document ---
:1955 Author Organization [facility] Address [address] [place] [address]- Care Team Providers Name Role Phone Not on Staff, PCP Primary Care Physician Unavailable [place] [facility] [place] Date(s): 07/16/22 - 09/05/22 [facility] [address] [place], [place] [address] Attending Physician: Torsten Mota MD Admitting Physician: [...] 1 Refills, Maintenance, 08/13/2216:15:00 EDT, [facility], 168, cm, 06/25/22 15:37:00 EDT, Height, 90.8, kg, 04/27/22 16:09:00 EDT, Dry Weight Start Date: 08/13/22 Status: Orderedcalcium acetate 667 mg oral capsule See Instructions, TAKE 1 CAPSULE BY MOUTH 3 TIMES A DAY WITH EACH MEAL, # 270 capsule, 1 Refills, [facility], 167, cm, 03/18/22 8:43:00 EDT, Height, 90.8, [...] 05/02/22 8:00:00 EDT, Route to Pharmacy Electronically, [facility]/pharmacy #[id number], Partial fill upon patient [...] Care Team PersonnelName: Sharlene Castorena RN Position: [facility] RN Member Role: Primary Care Nurse Name: Lalito Arteaga RN Position: [facility] RN Member Role: Primary Care Nurse Name: Chucho Navarro MD Position: [facility] Physician (General Medicine) Member Role: Lifetime Consulting Physician Address: Address: [address] [place] [address], [address] [place] [address] Name: Jaz Milligan Position: [facility] Outreach Member Role: Lifetime Consulting Physician Name: Eileen CORTES, Ace Le Position: [facility] Associate Professional Member Role: Lifetime Consulting Provider Address: Address: [address] [place] [address] Name: Not on Staff, PCP Position: [facility] Physician (General Medicine) Member Role: PCP Name: Ruby Negrete Position: [facility] Outreach Member Role: Lifetime Consulting Physician Name: Sunil Mosher MD Position: [facility] Renal MD Member Role: Lifetime Consulting Physician Address: Address: [address] [place] [address] [address] [facility] [place] [address]- Care Team Related PersonsName: JUAN CTYLER BARTH Address: [address] [place] [address] Name: TERESA LIM Address: home [address] [place] [address]
--- OUTSIDE RECORDS SUMMARY | 2022-11-05 07:16 | XMS_ITS | Continuity of Care Document ---
:1955 Author Organization [facility] Address [address] [place] [address]- Care Team Providers Name Role Phone Guillermina KUMAR, Chay Primary Care Physician Unavailable [place] [facility] [place] 09/18/21 [facility] [address] [place] [address]- Attending Physician: Jewell Mckinney Admitting Physician: Jewell [...] 03/28/21 9:22:00 EDT, Route to Pharmacy Electronically, [facility], 167.64, cm, 03/28/21 6:14:00 EDT, Height, [...]
--- OUTSIDE RECORDS SUMMARY | 2022-11-05 07:17 | XMS_ITS | Continuity of Care Document ---
:1955 Author Organization [facility] Address [address] [place] [address]- Care Team Providers Name Role Phone Not on Staff, PCP Primary Care Physician Unavailable Encounter [facility] [place] Date(s): 06/04/22 - 07/17/22 [facility] [address] [place], [place] [address] Attending Physician: Nakul KUMAR, Torsten [...] EACH MEAL, # 270 capsule, 1 Refills, [facility] STORE [id number], 167, cm, 03/18/22 8:43:00 EDT, Height, 90.8, [...] 8:00:00 EDT, Route to Pharmacy Electronically, [facility]/pharmacy #[id number], Partial fill upon patient [...] Active Peripheral Confirmed Active vascular disease 1ARA KHADAR Diaz,SAT Patient Care team information PersonnelName: Not on Staff, PCP
--- OUTSIDE RECORDS SUMMARY | 2022-11-05 07:17 | XMS_ITS | Continuity of Care Document ---
:1955 Author Organization [facility] Address [address] [place] [address]- Care Team Providers Name Role Phone Guillermina KUMAR, Chay Primary Care Physician Encounter [facility] Date(s): 07/04/21 - 07/04/[address] [address] Discharge Disposition: A-D/C Home Attending Physician: Torsten [...] 03/28/21 9:22:00 EDT, Route to Pharmacy Electronically, [facility], 167.64, cm, 03/28/21 6:14:00 [...] oldest 1 2 3 [Reference Range]: Height 167.64 cm 167.64 cm (07/04/21 8:04 AM) (06/26/21 10:53 AM) Weight 112.7 kg (07/04/21 8:04 AM) Oxygen Saturation [94-100 %] 97 % 95 % 95 % (07/04/21 12:00 PM) (07/04/21 11:30 AM) (07/04/21 1 1:15 AM) Body Mass Index [18.5-24.99] 40.1 *>HHI* (07/04/21 8:04 AM) Blood Pressure [90-138/55-84 133/68 mm Hg 164/72 mm Hg 126 /81 mm Hg mm Hg] (07/04/21 11:30 AM) *H* (07/04/21 11:0 0 AM) (07/04/21 11:15 AM) Respiratory Rate [16-30 18 br/min 22 br/min 17 br/mi n br/min] (07/04/21 11:30 AM) (07/04/21 11:15 AM) (07/04/21 1 1:00 AM) Temperature [96.8-100.4 97.0 DegF 97.0 DegF 97.1 Deg F DegF] (07/04/21 11:30 AM) (07/04/21 11:00 AM) (07/04/21 1 0:00 AM) Liters per Minute 2 L/min 4 L/min (07/04/21 10:30 AM) (07/04/21 10:00 AM) Mode of Delivery (Oxygen) Room air Room air Room a ir (07/04/21 12:00 PM) (07/04/21 11:30 AM) (07/04/21 1 1:00 AM) Blood pressure sites Arm, right Arm, right Arm, right (07/04/21 10:30 AM) (07/04/21 10:15 AM) (07/04/21 1 0:00 AM) Temperature Route Temporal Temporal Temporal (07/04/21 11:30 AM) (07/04/21 11:00 AM) (07/04/21 1 0:00 AM) Weight Obtained Via Standing scale (07/04/21 8:04 AM)
--- OUTSIDE RECORDS SUMMARY | 2022-11-05 07:17 | XMS_ITS | Continuity of Care Document ---
:1955 Author Organization [facility] Address [address] [place] [address]- Care Team Providers Name Role Phone Guillermina KUMAR, Chay Primary Care Physician Unavailable [id number] Date(s): 09/08/21 - 10/08/21 [facility] [address] [place] [address]- Allergies, Adverse Reactions, Alerts No Known Medication [...] 03/28/21 9:22:00 EDT, Route to Pharmacy Electronically, [facility], 167.64, cm, 03/28/21 6:14:00 [...]
--- OUTSIDE RECORDS SUMMARY | 2022-11-05 07:17 | XMS_ITS | Continuity of Care Document ---
:1955 Author Organization [facility] Address [address] [place] [address]- Care Team Providers Name Role Phone Guillermina KUMAR, Chay Primary Care Physician [place] [facility] [place]s): 04/09/21 - 04/16/21 [facility] [address] [place], [place] [address] Attending Physician: Torsten Mota MD Admitting Physician: Torsten Mota MD Referring Physician: Chay Sarmiento MD Allergies, Adverse [...] 03/28/21 9:22:00 EDT, Route to Pharmacy Electronically, [facility], 167.64, cm, 03/28/21 6:14:00 [...] oldest [Reference Range]: 1 Height 167.64 cm (04/09/21 3:06 PM) Weight 100 kg (04/09/21 3:06 PM) Oxygen Saturation [94-100 %] 98 % (04/09/21 3:06 PM) Pulse Rate [55-90 bpm] 78 bpm (04/09/21 3:06 PM) Body Mass Index [18.5-24.99] 35.58 *>HHI* (04/09/21 3:06 PM) Blood Pressure [90-138/55-84 mm Hg] 158/70 mm Hg *H* (04/09/21 3:06 PM) Mode of Delivery (Oxygen) Room air (04/09/21 3:06 PM) Blood pressure sites Arm, left (04/09/21 3:06 PM) Weight Obtained Via Patient/family stated (04/09/21 3:06 PM)
--- OUTSIDE RECORDS SUMMARY | 2022-11-05 07:17 | XMS_ITS | Continuity of Care Document ---
:1955 Author Organization [facility] Address [address] [place] [address]- Care Team Providers Name Role Phone Not on Staff, PCP Primary Care Physician Unavailable Encounter [facility] Date(s): 12/05/19 - 12/05/[address] [address]- [facility] Attending Physician: Melanie KUMAR, Chucho Villalta
--- OUTSIDE RECORDS SUMMARY | 2022-11-05 07:17 | XMS_ITS | Continuity of Care Document ---
:1955 Author Organization [facility] Address [address] [place] [address]- Care Team Providers Name Role Phone Not on Staff, PCP Primary Care Physician Unavailable Encounter 05/06/22 - 07/01/22 [facility] [address] [place] [address]- Discharge Disposition: CLIENT NO LONGER REQUIRES SKILLED CARE Referring Physician: Ivy Pelletier Allergies, Adverse Reactions, Alerts No Known Medication [...] # 270 capsule, 1 Refills, [id number], 167, cm, 03/18/22 8:43:00 EDT, Height, 90.8, [...] 05/02/22 8:00:00 EDT, Route to Pharmacy Electronically, [facility]/pharmacy #[id number], Partial fill upon patient request if [...] class I(Confirmed) Active Peripheral vascular disease(Confirmed) Active 1AKHADAR Brink,[facility] Care Team PersonnelName: Not on Staff, PCP
--- OUTSIDE RECORDS SUMMARY | 2022-11-05 07:17 | XMS_ITS | Continuity of Care Document ---
:1955 Author Organization [facility] Address [address] [place] [address]- Care Team Providers Name Role Phone Not on Staff, PCP Primary Care Physician Unavailable Encounter [facility] [place] Date(s): 11/12/21 - 11/19/21 [facility] [address] [place], [place] [address] Attending Physician: Nakul KUMAR, Torsten Patrick Admitting [...] 03/28/21 9:22:00 EDT, Route to Pharmacy Electronically, [facility], 167.64, cm, 03/28/21 6:14:00 EDT, [...]
--- OUTSIDE RECORDS SUMMARY | 2022-11-05 07:17 | XMS_ITS | Continuity of Care Document ---
:1955 Author Organization [facility] Address [address] [place] [address]- Care Team Providers Name Role Phone Guillermina KUMAR, Chay Primary Care Physician [place] [facility] [place] 02/26[place]21 - 03/28/21 [facility] [address] [place], [place] [address] Attending Physician: Jewell Mckinney Admitting Physician: Jewell [...] 03/28/21 9:22:00 EDT, Route to Pharmacy Electronically, [facility], 002.64, cm, 03/28/21 6:14:00 EDT, Height, 99.7, kg, [...]
--- OUTSIDE RECORDS SUMMARY | 2022-11-05 07:17 | XMS_ITS | Continuity of Care Document ---
:1955 Author Organization [facility] Address [address] [place] [address]- Care Team Providers Name Role Phone Not on Staff, PCP Primary Care Physician Unavailable Encounter [facility] [place] Date(s): 04/28/22 - 05/28/[address] [address] Attending Physician: Not on Staff, Attending MD Admitting Physician: Not on Staff, Admitting MD Referring Physician: Not on Staff, Referring [...] MEAL, # 270 capsule, 1 Refills, [facility] ST[facility] 42993, 167, cm, 03/18/22 8:43:00 EDT, Height, 90.8, [...] 8:00:00 EDT, Route to Pharmacy Electronically, [facility]/pharmacy #[id number], Partial fill upon patient request if the [...] Active Peripheral vascular disease(Confirmed) Active 1ARA Deidra ARELLANO,TH,SAT
--- OUTSIDE RECORDS SUMMARY | 2022-11-05 07:17 | XMS_ITS | Continuity of Care Document ---
:1955 Author Organization [facility] Address [address] [place] [address]- Care Team Providers Name Role Phone Not on Staff, PCP Primary Care Physician Unavailable [place] [facility] [place] Date(s): 03/05/22 - 03/12/22 [facility] [address] [place], [place] [address] Attending Physician: Nakul KUMAR, Torsten Patrick Admitting Physician: Nakul KUMAR, Torsten Patrick Referring Physician: Adarsh KEYS, Jacqueline Gorman Allergies, Adverse [...] oldest [Reference Range]: 1 Height 167 cm (03/05/22 2:32 PM) Weight 90.72 kg (03/05/22 2:32 PM) Oxygen Saturation [94-100 %] 98 % (03/05/22 2:32 PM) Pulse Rate [55-90 bpm] 70 bpm (03/05/22 2:32 PM) Body Mass Index [18.5-24.99] 32.53 *>HHI* (03/05/22 2:32 PM) Blood Pressure [90-138/55-84 mm Hg] 100/70 mm Hg (03/05/22 2:32 PM) Mode of Delivery (Oxygen) Room air (03/05/22 2:32 PM) Blood pressure sites Arm, right (03/05/22 2:32 PM) Weight Obtained Via Patient/family stated (03/05/22 2:32 PM)
--- OUTSIDE RECORDS SUMMARY | 2022-11-05 07:17 | XMS_ITS | Continuity of Care Document ---
:1955 Author Organization [facility] Address [address] [place] [address]- Care Team Providers Name Role Phone Guillermina KUMAR, Chay Primary Care Physician [place] [facility] [place]13[place]21 - 04/12/21 [facility] [address] [place], [place] [address] Attending Physician: Jewell Mckinney Admitting Physician: [...] 03/28/21 9:22:00 EDT, Route to Pharmacy Electronically, [facility], 275.64, cm, 03/28/21 6:14:00 EDT, Height, 99.7, kg, [...]
--- OUTSIDE RECORDS SUMMARY | 2022-11-05 07:17 | XMS_ITS | Continuity of Care Document ---
:1955 Author Organization [facility] Address [address] [place] [address]- Care Team Providers Name Role Phone Not on Staff, PCP Primary Care Physician Unavailable [place] [facility] [place] Date(s): 05/13/22 - 05/20/22 [facility] [address] [place], [place] [address] Attending Physician: Torsten Mota MD Admitting Physician: [...] MEAL, # 270 capsule, 1 Refills, [facility] ST[facility] 13508, 167, cm, 03/18/22 8:43:00 EDT, Height, 90.8, [...] 8:00:00 EDT, Route to Pharmacy Electronically, [facility]/pharmacy #[id number], Partial fill upon patient request if [...] Active Peripheral vascular disease(Confirmed) Active 1ARA Deidra ,,SAT Vital Signs Most recent to oldest [Reference Range]: 1 Height 168 cm (05/13/22 3:36 PM) Weight 88.45 kg (05/13/22 3:36 PM) Oxygen Saturation [94-100 %] 97 % (05/13/22 3:36 PM) Pulse Rate [55-90 bpm] 74 bpm (05/13/22 3:36 PM) Body Mass Index [18.5-24.99] 31.34 *>HHI* (05/13/22 3:36 PM) Blood Pressure [90-138/55-84 mm Hg] 120/68 mm Hg (05/13/22 3:36 PM) Mode of Delivery (Oxygen) Room air (05/13/22 3:36 PM) Blood pressure sites Arm, right (05/13/22 3:36 PM) Weight Obtained Via Patient/family stated (05/13/22 3:36 PM)
--- OUTSIDE RECORDS SUMMARY | 2022-11-05 07:17 | XMS_ITS | Continuity of Care Document ---
:1955 Author Organization [facility] Address [address] [place] [address]- Care Team Providers Name Role Phone Guillermina KUMAR, Chay Primary Care Physician [id number] Date(s): 04/09/21 - 06/12/21 [facility] [address] [place], [place] [address] Attending Physician: Torsten Mota [...] 03/28/21 9:22:00 EDT, Route to Pharmacy Electronically, [facility], 167.64, cm, 03/28/21 6:14:00 EDT, [...]
--- OUTSIDE RECORDS SUMMARY | 2022-11-05 07:17 | XMS_ITS | Continuity of Care Document ---
:1955 Author Organization [facility] Address [address] [place] [address]- Care Team Providers Name Role Phone Not on Staff, PCP Primary Care Physician Unavailable [place] [facility] [place] 08/27/22 - 09/26/22 [facility] [address] [place], [place] [address] Allergies, Adverse Reactions, Alerts No Known Medication [...] tablet, 1 Refills, Maintenance, 09/07/22 14:03:00 EST, [facility] ST[facility] 8[facility]92, 168, cm, 06/25/22 15:37:00 EDT, Height, 90.8, kg, 04/27/22 16:09:00 EDT, Dry Weight Start Date: 09/07/22 Status: Orderedcalcium acetate 667 mg oral capsule See Instructions, TAKE 1 CAPSULE BY MOUTH 3 TIMES A DAY WITH EACH MEAL, # 270 capsule, 1 Refills, [facility] ST[facility] 56545, 167, cm, 03/18/22 8:43:00 EDT, Height, 90.8, [...] 05/02/22 8:00:00 EDT, Route to Pharmacy Electronically, [facility]/pharmacy #[id number], Partial fill upon patient [...] Peripheral Confirmed Active vascular disease 1ARA KHADAR Diaz,[facility] Patient Care team information Care Team PersonnelName: Raffaele HORN, Sharlene Position: [facility] RN Member Role: Primary Care Nurse Name: Chucho Navarro MD Position: [facility] Physician (General Medicine) Member Role: Lifetime Consulting Physician Address: Address: [address] [place] [address], [address] Name: Srini , Jaz Position: [facility] Outreach Member Role: Lifetime Consulting Physician Name: Ace Rhodes Position: [facility] Associate Professional Member Role: Lifetime Consulting Provider Address: Address: [address] [place] [address] Name: Not on Staff, PCP Position: [facility] Physician (General Medicine) Member Role: PCP Name: Ruby Negrete Position: [facility] Outreach Member Role: Lifetime Consulting Physician Name: Sunil Mosher MD Position: [facility] Renal MD Member Role: Lifetime Consulting Physician Address: Address: [address] [facility] [place] [address]- Care Team Related PersonsName: TYLER IRIZARRY Address: [address] [place] [address] Name: TERESA LIM Address: home [address] [place] [address]
--- OUTSIDE RECORDS SUMMARY | 2022-11-05 07:17 | XMS_ITS | Continuity of Care Document ---
:1955 Author Organization [facility] Address [address] [place] [address]- Care Team Providers Name Role Phone Guillermina KUMAR, Chay Primary Care Physician [place] [facility] [place]s): 02/26/21 - 03/28/21 [facility] [address] [place], [place] [address] Attending Physician: Jewell Mckinney Admitting Physician: [...] 03/28/21 9:22:00 EDT, Route to Pharmacy Electronically, [facility], 686.64, cm, 03/28/21 6:14:00 EDT, Height, 99.7, kg, [...]
--- OUTSIDE RECORDS SUMMARY | 2022-11-05 07:17 | XMS_ITS | Continuity of Care Document ---
:1955 Author Organization [facility] Address [address] [place] [address]- Care Team Providers Name Role Phone Guillermina KUMAR, Chay Primary Care Physician Unavailable En[facility] [place] Date(s): 09/24/21 - 10/01/21 [facility] [address] [place] [address]- Attending Physician: Su Martinez NP Admitting Physician: Su Martinez NP Referring Physician: Chay Sarmiento MD Allergies, Adverse [...] 03/28/21 9:22:00 EDT, Route to Pharmacy Electronically, [facility], 167.64, cm, 03/28/21 6:14:00 [...] recent to oldest [Reference Range]: 1 Height 167.6 cm (09/24/21 9:44 AM) Pulse Rate [55-90 bpm] 72 bpm (09/24/21 9:44 AM) Blood Pressure [90-138/55-84 mm Hg] 146/60 mm Hg *H* (09/24/21 9:44 AM) Respiratory Rate [16-30 br/min] 88 br/min *H* (09/24/21 9:44 AM) Blood pressure sites Arm, right (09/24/21 9:44 AM)
[2022-11-05 07:28] LABS: Ethanol < 10 mg/dL
[2022-11-05 07:32] LABS: Alanine Aminotransferase 16 U/L (0-40); Alkaline Phosphatase 175 U/L (39-117); Anion Gap 18 (12-20); Aspartate Amino Transferase 33 U/L (5-37); Bilirubin Total 0.6 mg/dL (0.0-1.0); Blood Urea Nitrogen 50 mg/dL (9-16); Carbon Dioxide 27 mmol/L (22-29); Chloride 93 mmol/L (96-108); Creatinine Clr Calc Pharmacy 14.7; Estimated Glomerular Filt Rate 12; Glucose Random 143 mg/dL (60-115); Potassium 5.6 mmol/L (3.3-5.1); Sodium 132 mmol/L (135-145); Total Protein 7.7 g/dL (6.5-8.0)
--- NOTE | 2022-11-05 07:35 | ECG_ITS ---
Test Reason : ams Blood Pressure : / mmHG Vent. Rate : 065 BPM Atrial Rate : 065 BPM P-R Int : 206 ms QRS Dur : 146 ms QT Int : 478 ms P-R-T Axes : 056 034 005 degrees QTc Int : 497 ms Normal sinus rhythm with sinus arrhythmia Non-specific intra-ventricular conduction block Minimal voltage criteria for LVH, may be normal variant ( [place] product ) Cannot rule out Inferior infarct , age undetermined Abnormal ECG No previous ECGs available Referred By: Gustavo Valverde Electronically Signed By:ANDREW BONE MD
[2022-11-05] MEDS: Sodium Zirconium Cyclosilicate 10 GM POWD.PACK PO (07:39)
[2022-11-05 07:43] LABS: Glucose, Whole Blood 247 mg/dL (60-115)
[2022-11-05 08:07] VITALS: TEMP 34.6
[2022-11-05 09:14] VITALS: BP 121/68; PULSE 67; RESP 10; TEMP 36.4; O2SAT 97
--- NOTE | 2022-11-05 09:57 | PHA.MEDREC ---
Pharmacy Consult ? Medication Reconciliation Pharmacy has completed the medication reconciliation. Completed medication reconciliation using list from Jarocho Gorman. Note that pt had PPD started on 10/27/22 and SNF wanted to monitor induration until 11/13/22. [place] text sent to nurse caring for patient to make aware of PPD.
== END 2022-11-05 11:23 | disposition skilled nursing facility (03) ==
PROVIDERS: Internal Medicine; Emergency Provider Emergency Medicine Emergency Medical Services; PCP Family Medicine
DX: E11.649 Type 2 diabetes mellitus with hypoglycemia without coma (principal); R41.82 Altered mental status, unspecified; Z20.822 Contact with and (suspected) exposure to COVID-19; Z20.828 Contact with and (suspected) exposure to other viral communicable diseases; Z79.899 Other long term (current) drug therapy; Z79.4 Long term (current) use of insulin
CPT/HCPCS: 0241U; 36415; 71045; 80053; 82077; 82947; 83605; 85025; 87040; 93005; 99284

== ENCOUNTER 2022-11-09 06:38 | Outpatient (REF) | payer MEDICARE, SELFPAY ==
[2022-11-09 06:23] LABS: MANUAL DIFF FLAG NO
[2022-11-09 07:24] LABS: Basophils Percent Auto 0.6 % (0-2); Eosinophils Absolute Auto 0.6 X10*3/uL (0.0-0.4); Eosinophils Percent Auto 9.4 % (0-4); Hematocrit 33.9 % (42.0-52.0); Hemoglobin 10.9 g/dl (14.0-18.0); Imm Gran Abs Auto 0.06 X10*3/uL (0.00-0.03); Imm Gran Pct Auto 0.9 % (0.0-0.4); Lymphocytes Absolute Auto 0.9 X10*3/uL (1.2-4.9); Lymphocytes Percent Auto 13.9 % (20-40); Mean Corpuscular HGB Conc 32.2 g/dl (31.0-36.0); Mean Corpuscular Hemoglobin 28.3 pg (27.0-33.0); Mean Corpuscular Volume 88.1 fL (80.0-98.0); Mean Platelet Volume 8.9 fL (9.4-12.4); Monocytes Absolute Auto 0.6 X10*3/uL (0.1-1.2); Neutrophils Absolute Auto 4.2 x10*3/uL (2.0-8.3); Neutrophils Percent Auto 65.2 % (45-73); Platelet Count 149 X10*3/uL (160-400); Red Blood Count 3.85 X10*6/uL (4.60-5.80); Red Cell Distribution Width 17.7 % (11.0-16.0); White Blood Count 6.4 X10*3/uL (4.8-10.8)
[2022-11-09 07:32] LABS: Anion Gap 19 (12-20); Blood Urea Nitrogen 62 mg/dL (9-16); Carbon Dioxide 26 mmol/L (22-29); Chloride 94 mmol/L (96-108); Estimated Glomerular Filt Rate 13; Glucose Random 121 mg/dL (60-115); Potassium 4.8 mmol/L (3.3-5.1); Sodium 134 mmol/L (135-145)
== END 2022-11-09 06:39 | disposition home or self-care (01) ==
LOC: HO.MMNH1L 06:38
PROVIDERS: Visit Provider Family Medicine
DX: Z02.2 Encounter for examination for admission to residential institution (principal)
CPT/HCPCS: 36415; 80048; 85025

== ENCOUNTER 2022-11-16 07:00 | Outpatient (REF) | payer MEDICARE, SELFPAY ==
[2022-11-16 06:49] LABS: MANUAL DIFF FLAG NO
[2022-11-16 07:40] LABS: Basophils Percent Auto 0.4 % (0-2); Eosinophils Absolute Auto 0.6 X10*3/uL (0.0-0.4); Eosinophils Percent Auto 6.8 % (0-4); Hematocrit 34.6 % (42.0-52.0); Hemoglobin 11.1 g/dl (14.0-18.0); Imm Gran Abs Auto 0.11 X10*3/uL (0.00-0.03); Imm Gran Pct Auto 1.4 % (0.0-0.4); Lymphocytes Absolute Auto 0.9 X10*3/uL (1.2-4.9); Lymphocytes Percent Auto 11.1 % (20-40); Mean Corpuscular HGB Conc 32.1 g/dl (31.0-36.0); Mean Corpuscular Hemoglobin 28.8 pg (27.0-33.0); Mean Corpuscular Volume 89.6 fL (80.0-98.0); Mean Platelet Volume 9.1 fL (9.4-12.4); Monocytes Absolute Auto 0.6 X10*3/uL (0.1-1.2); Monocytes Percent Auto 7.6 % (2-11); Neutrophils Absolute Auto 5.9 x10*3/uL (2.0-8.3); Neutrophils Percent Auto 72.7 % (45-73); Platelet Count 125 X10*3/uL (160-400); Red Blood Count 3.86 X10*6/uL (4.60-5.80); Red Cell Distribution Width 17.7 % (11.0-16.0); White Blood Count 8.1 X10*3/uL (4.8-10.8)
[2022-11-16 09:23] LABS: Anion Gap 20 (12-20); Blood Urea Nitrogen 68 mg/dL (9-16); Calcium 9.3 mg/dL (8.4-10.2); Carbon Dioxide 26 mmol/L (22-29); Chloride 95 mmol/L (96-108); Estimated Glomerular Filt Rate 12; Glucose Random 23 mg/dL (60-115); Potassium 5.5 mmol/L (3.3-5.1); Sodium 135 mmol/L (135-145)
== END 2022-11-16 07:01 | disposition home or self-care (01) ==
LOC: HO.MMNH1L 07:00
PROVIDERS: Visit Provider Family Medicine
DX: Z02.2 Encounter for examination for admission to residential institution (principal)
CPT/HCPCS: 36415; 80048; 85025

== ENCOUNTER 2022-11-27 14:40 | Outpatient (REF) | payer MEDICARE, SELFPAY ==
[2022-11-27 16:18] LABS: MANUAL DIFF FLAG NO
[2022-11-27 16:40] LABS: Basophils Percent Auto 0.3 % (0-2); Eosinophils Absolute Auto 0.3 X10*3/uL (0.0-0.4); Eosinophils Percent Auto 4.6 % (0-4); Hematocrit 26.4 % (42.0-52.0); Hemoglobin 8.4 g/dl (14.0-18.0); Imm Gran Pct Auto 1.6 % (0.0-0.4); Lymphocytes Absolute Auto 0.6 X10*3/uL (1.2-4.9); Lymphocytes Percent Auto 9.1 % (20-40); Mean Corpuscular HGB Conc 31.8 g/dl (31.0-36.0); Mean Corpuscular Hemoglobin 29.4 pg (27.0-33.0); Mean Corpuscular Volume 92.3 fL (80.0-98.0); Mean Platelet Volume 9.1 fL (9.4-12.4); Monocytes Absolute Auto 0.5 X10*3/uL (0.1-1.2); Monocytes Percent Auto 8.5 % (2-11); Neutrophils Absolute Auto 4.8 x10*3/uL (2.0-8.3); Neutrophils Percent Auto 75.9 % (45-73); Platelet Count 239 X10*3/uL (160-400); Red Blood Count 2.86 X10*6/uL (4.60-5.80); Red Cell Distribution Width 17.3 % (11.0-16.0); White Blood Count 6.3 X10*3/uL (4.8-10.8)
[2022-11-27 18:05] LABS: Alanine Aminotransferase < 6 U/L (0-40); Albumin Level 3.1 g/dL (3.5-5.0); Alkaline Phosphatase 242 U/L (39-117); Anion Gap 21 (12-20); Aspartate Amino Transferase 20 U/L (5-37); Bilirubin Total 0.5 mg/dL (0.0-1.0); Blood Urea Nitrogen 52 mg/dL (9-16); Carbon Dioxide 26 mmol/L (22-29); Chloride 92 mmol/L (96-108); Estimated Glomerular Filt Rate 11; Glucose Random 162 mg/dL (60-115); Potassium 4.8 mmol/L (3.3-5.1); Sodium 134 mmol/L (135-145); Total Protein 5.9 g/dL (6.5-8.0)
== END 2022-11-27 14:41 | disposition home or self-care (01) ==
LOC: HO.MMNH2L 14:40
PROVIDERS: Visit Provider Family Medicine
DX: E11.22 Type 2 diabetes mellitus with diabetic chronic kidney disease (principal); N18.6 End stage renal disease
CPT/HCPCS: 36415; 80053; 85025

== ENCOUNTER 2022-11-30 06:40 | Outpatient (REF) | payer MEDICARE, SELFPAY ==
[2022-11-30 06:25] LABS: MANUAL DIFF FLAG NO
[2022-11-30 07:26] LABS: Basophils Percent Auto 0.3 % (0-2); Eosinophils Absolute Auto 0.4 X10*3/uL (0.0-0.4); Eosinophils Percent Auto 3.5 % (0-4); Hematocrit 24.3 % (42.0-52.0); Hemoglobin 7.8 g/dl (14.0-18.0); Imm Gran Abs Auto 0.22 X10*3/uL (0.00-0.03); Imm Gran Pct Auto 2.1 % (0.0-0.4); Lymphocytes Absolute Auto 0.9 X10*3/uL (1.2-4.9); Lymphocytes Percent Auto 8.4 % (20-40); Mean Corpuscular HGB Conc 32.1 g/dl (31.0-36.0); Mean Corpuscular Hemoglobin 29.5 pg (27.0-33.0); Mean Platelet Volume 9.1 fL (9.4-12.4); Monocytes Absolute Auto 0.7 X10*3/uL (0.1-1.2); Monocytes Percent Auto 6.3 % (2-11); Neutrophils Absolute Auto 8.5 x10*3/uL (2.0-8.3); Neutrophils Percent Auto 79.4 % (45-73); Platelet Count 252 X10*3/uL (160-400); Red Blood Count 2.64 X10*6/uL (4.60-5.80); Red Cell Distribution Width 17.2 % (11.0-16.0); White Blood Count 10.7 X10*3/uL (4.8-10.8)
[2022-11-30 07:39] LABS: Anion Gap 22 (12-20); Blood Urea Nitrogen 96 mg/dL (9-16); Carbon Dioxide 24 mmol/L (22-29); Chloride 92 mmol/L (96-108); Estimated Glomerular Filt Rate 8; Glucose Random 100 mg/dL (60-115); Potassium 5.9 mmol/L (3.3-5.1); Sodium 132 mmol/L (135-145)
== END 2022-11-30 06:41 | disposition home or self-care (01) ==
LOC: HO.MMNH1L 06:40
PROVIDERS: Visit Provider Family Medicine
DX: Z02.2 Encounter for examination for admission to residential institution (principal)
CPT/HCPCS: 36415; 80048; 85025

== ENCOUNTER 2022-12-07 07:06 | Outpatient (REF) | payer MEDICARE, SELFPAY ==
[2022-12-07 06:28] LABS: MANUAL DIFF FLAG NO
[2022-12-07 07:03] LABS: Basophils Percent Auto 0.3 % (0-2); Eosinophils Absolute Auto 0.5 X10*3/uL (0.0-0.4); Eosinophils Percent Auto 4.2 % (0-4); Hematocrit 29.2 % (42.0-52.0); Hemoglobin 9.2 g/dl (14.0-18.0); Imm Gran Abs Auto 0.25 X10*3/uL (0.00-0.03); Imm Gran Pct Auto 2.2 % (0.0-0.4); Lymphocytes Absolute Auto 1.1 X10*3/uL (1.2-4.9); Lymphocytes Percent Auto 9.9 % (20-40); Mean Corpuscular HGB Conc 31.5 g/dl (31.0-36.0); Mean Corpuscular Hemoglobin 29.9 pg (27.0-33.0); Mean Corpuscular Volume 94.8 fL (80.0-98.0); Mean Platelet Volume 8.6 fL (9.4-12.4); Monocytes Absolute Auto 0.9 X10*3/uL (0.1-1.2); Monocytes Percent Auto 7.5 % (2-11); Neutrophils Absolute Auto 8.8 x10*3/uL (2.0-8.3); Neutrophils Percent Auto 75.9 % (45-73); Platelet Count 258 X10*3/uL (160-400); Red Blood Count 3.08 X10*6/uL (4.60-5.80); Red Cell Distribution Width 17.7 % (11.0-16.0); White Blood Count 11.6 X10*3/uL (4.8-10.8)
[2022-12-07 07:37] LABS: Anion Gap 19 (12-20); Blood Urea Nitrogen 48 mg/dL (9-16); Calcium 8.8 mg/dL (8.4-10.2); Carbon Dioxide 29 mmol/L (22-29); Chloride 91 mmol/L (96-108); Glucose Random 138 mg/dL (60-115); Potassium 4.7 mmol/L (3.3-5.1); Sodium 134 mmol/L (135-145)
[2022-12-07 08:06] LABS: Estimated Glomerular Filt Rate 11
== END 2022-12-07 07:07 | disposition home or self-care (01) ==
LOC: HO.MMNH2L 07:06
PROVIDERS: Visit Provider Family Medicine
DX: I12.0 Hypertensive chronic kidney disease with stage 5 chronic kidney disease or end stage renal disease (principal); E11.22 Type 2 diabetes mellitus with diabetic chronic kidney disease; N18.6 End stage renal disease
CPT/HCPCS: 36415; 80048; 85025

== ENCOUNTER 2023-01-01 05:41 | Outpatient (REF) | payer MEDICARE, SELFPAY ==
[2023-01-01 05:47] LABS: MANUAL DIFF FLAG NO
[2023-01-01 06:08] LABS: Basophils Absolute Auto 0.1 X10*3/uL (0.0-0.2); Basophils Percent Auto 0.7 % (0-2); Eosinophils Absolute Auto 0.3 X10*3/uL (0.0-0.4); Eosinophils Percent Auto 3.6 % (0-4); Hematocrit 30.9 % (42.0-52.0); Hemoglobin 9.5 g/dl (14.0-18.0); Imm Gran Abs Auto 0.09 X10*3/uL (0.00-0.03); Imm Gran Pct Auto 1.3 % (0.0-0.4); Lymphocytes Absolute Auto 0.9 X10*3/uL (1.2-4.9); Lymphocytes Percent Auto 12.5 % (20-40); Mean Corpuscular HGB Conc 30.7 g/dl (31.0-36.0); Mean Corpuscular Hemoglobin 29.7 pg (27.0-33.0); Mean Corpuscular Volume 96.6 fL (80.0-98.0); Mean Platelet Volume 8.6 fL (9.4-12.4); Monocytes Absolute Auto 0.7 X10*3/uL (0.1-1.2); Monocytes Percent Auto 10.3 % (2-11); Neutrophils Absolute Auto 4.9 x10*3/uL (2.0-8.3); Neutrophils Percent Auto 71.6 % (45-73); Platelet Count 181 X10*3/uL (160-400); White Blood Count 6.9 X10*3/uL (4.8-10.8)
[2023-01-01 06:26] LABS: Alanine Aminotransferase < 6 U/L (0-40); Albumin Level 3.2 g/dL (3.5-5.0); Alkaline Phosphatase 118 U/L (39-117); Anion Gap 15 (12-20); Aspartate Amino Transferase 14 U/L (5-37); Bilirubin Total 0.4 mg/dL (0.0-1.0); Blood Urea Nitrogen 36 mg/dL (9-16); Carbon Dioxide 28 mmol/L (22-29); Chloride 96 mmol/L (96-108); Estimated Glomerular Filt Rate 13; Glucose Random 175 mg/dL (60-115); Potassium 4.8 mmol/L (3.3-5.1); Sodium 134 mmol/L (135-145); Total Protein 5.4 g/dL (6.5-8.0)
== END 2023-01-01 05:42 | disposition home or self-care (01) ==
LOC: HO.MMNH3L 05:41
PROVIDERS: Visit Provider Family Medicine
DX: I12.0 Hypertensive chronic kidney disease with stage 5 chronic kidney disease or end stage renal disease (principal); E11.22 Type 2 diabetes mellitus with diabetic chronic kidney disease; N18.6 End stage renal disease
CPT/HCPCS: 36415; 80053; 85025

== ENCOUNTER 2023-01-04 06:01 | Outpatient (REF) | payer MEDICARE, SELFPAY ==
[2023-01-04 05:46] LABS: MANUAL DIFF FLAG NO
[2023-01-04 06:26] LABS: Basophils Absolute Auto 0.1 X10*3/uL (0.0-0.2); Basophils Percent Auto 0.9 % (0-2); Eosinophils Absolute Auto 0.3 X10*3/uL (0.0-0.4); Eosinophils Percent Auto 3.9 % (0-4); Hematocrit 31.6 % (42.0-52.0); Hemoglobin 9.8 g/dl (14.0-18.0); Imm Gran Abs Auto 0.05 X10*3/uL (0.00-0.03); Imm Gran Pct Auto 0.7 % (0.0-0.4); Lymphocytes Absolute Auto 0.8 X10*3/uL (1.2-4.9); Lymphocytes Percent Auto 9.8 % (20-40); Mean Corpuscular Hemoglobin 30.2 pg (27.0-33.0); Mean Corpuscular Volume 97.2 fL (80.0-98.0); Mean Platelet Volume 8.7 fL (9.4-12.4); Monocytes Absolute Auto 0.6 X10*3/uL (0.1-1.2); Monocytes Percent Auto 7.9 % (2-11); Neutrophils Absolute Auto 5.9 x10*3/uL (2.0-8.3); Neutrophils Percent Auto 76.8 % (45-73); Platelet Count 176 X10*3/uL (160-400); Red Blood Count 3.25 X10*6/uL (4.60-5.80); Red Cell Distribution Width 17.6 % (11.0-16.0); White Blood Count 7.6 X10*3/uL (4.8-10.8)
[2023-01-04 08:37] LABS: Anion Gap 19 (12-20); Blood Urea Nitrogen 40 mg/dL (9-16); Calcium 9.3 mg/dL (8.4-10.2); Carbon Dioxide 26 mmol/L (22-29); Chloride 94 mmol/L (96-108); Estimated Glomerular Filt Rate 13; Glucose Random 170 mg/dL (60-115); Potassium 4.5 mmol/L (3.3-5.1); Sodium 134 mmol/L (135-145)
== END 2023-01-04 06:02 | disposition home or self-care (01) ==
LOC: HO.MMNH3L 06:01
PROVIDERS: Visit Provider Family Medicine
DX: I12.0 Hypertensive chronic kidney disease with stage 5 chronic kidney disease or end stage renal disease (principal); E11.22 Type 2 diabetes mellitus with diabetic chronic kidney disease; N18.6 End stage renal disease
CPT/HCPCS: 36415; 80048; 85025

== ENCOUNTER 2023-01-11 06:22 | Outpatient (REF) | payer MEDICARE, SELFPAY ==
[2023-01-11 06:10] LABS: MANUAL DIFF FLAG NO
[2023-01-11 06:33] LABS: Basophils Percent Auto 0.6 % (0-2); Eosinophils Absolute Auto 0.5 X10*3/uL (0.0-0.4); Hematocrit 33.9 % (42.0-52.0); Hemoglobin 10.5 g/dl (14.0-18.0); Imm Gran Abs Auto 0.08 X10*3/uL (0.00-0.03); Imm Gran Pct Auto 1.2 % (0.0-0.4); Lymphocytes Absolute Auto 0.8 X10*3/uL (1.2-4.9); Lymphocytes Percent Auto 12.4 % (20-40); Mean Corpuscular Hemoglobin 30.3 pg (27.0-33.0); Mean Platelet Volume 9.3 fL (9.4-12.4); Monocytes Absolute Auto 0.6 X10*3/uL (0.1-1.2); Monocytes Percent Auto 8.7 % (2-11); Neutrophils Absolute Auto 4.5 x10*3/uL (2.0-8.3); Neutrophils Percent Auto 70.1 % (45-73); Platelet Count 173 X10*3/uL (160-400); Red Blood Count 3.46 X10*6/uL (4.60-5.80); Red Cell Distribution Width 16.1 % (11.0-16.0); White Blood Count 6.4 X10*3/uL (4.8-10.8)
[2023-01-11 07:13] LABS: Anion Gap 15 (12-20); Blood Urea Nitrogen 33 mg/dL (9-16); Calcium 9.4 mg/dL (8.4-10.2); Carbon Dioxide 29 mmol/L (22-29); Chloride 95 mmol/L (96-108); Glucose Random 173 mg/dL (60-115); Sodium 134 mmol/L (135-145)
[2023-01-11 07:59] LABS: Estimated Glomerular Filt Rate 14
== END 2023-01-11 06:23 | disposition home or self-care (01) ==
LOC: HO.MMNH3L 06:22
PROVIDERS: Visit Provider Family Medicine
DX: E11.22 Type 2 diabetes mellitus with diabetic chronic kidney disease (principal); I12.0 Hypertensive chronic kidney disease with stage 5 chronic kidney disease or end stage renal disease; N18.6 End stage renal disease
CPT/HCPCS: 36415; 80048; 85025

== ENCOUNTER 2023-01-18 06:21 | Outpatient (REF) | payer MEDICARE, SELFPAY ==
[2023-01-18 06:13] LABS: MANUAL DIFF FLAG NO
[2023-01-18 06:52] LABS: Basophils Percent Auto 0.6 % (0-2); Eosinophils Absolute Auto 0.5 X10*3/uL (0.0-0.4); Eosinophils Percent Auto 6.9 % (0-4); Hemoglobin 11.5 g/dl (14.0-18.0); Imm Gran Abs Auto 0.06 X10*3/uL (0.00-0.03); Imm Gran Pct Auto 0.9 % (0.0-0.4); Lymphocytes Percent Auto 15.5 % (20-40); Mean Corpuscular HGB Conc 31.9 g/dl (31.0-36.0); Mean Corpuscular Hemoglobin 29.9 pg (27.0-33.0); Mean Corpuscular Volume 93.8 fL (80.0-98.0); Mean Platelet Volume 9.6 fL (9.4-12.4); Monocytes Absolute Auto 0.6 X10*3/uL (0.1-1.2); Monocytes Percent Auto 9.3 % (2-11); Neutrophils Absolute Auto 4.4 x10*3/uL (2.0-8.3); Neutrophils Percent Auto 66.8 % (45-73); Platelet Count 131 X10*3/uL (160-400); Red Blood Count 3.84 X10*6/uL (4.60-5.80); Red Cell Distribution Width 15.4 % (11.0-16.0); White Blood Count 6.6 X10*3/uL (4.8-10.8)
[2023-01-18 08:11] LABS: Anion Gap 13 (12-20); Blood Urea Nitrogen 42 mg/dL (9-16); Calcium 9.4 mg/dL (8.4-10.2); Carbon Dioxide 32 mmol/L (22-29); Chloride 90 mmol/L (96-108); Estimated Glomerular Filt Rate 14; Glucose Random 247 mg/dL (60-115); Potassium 4.2 mmol/L (3.3-5.1); Sodium 131 mmol/L (135-145)
== END 2023-01-18 06:22 | disposition home or self-care (01) ==
LOC: HO.MMNH3L 06:21
PROVIDERS: Visit Provider Family Medicine
DX: I12.0 Hypertensive chronic kidney disease with stage 5 chronic kidney disease or end stage renal disease (principal); E11.22 Type 2 diabetes mellitus with diabetic chronic kidney disease; N18.6 End stage renal disease
CPT/HCPCS: 36415; 80048; 85025

== ENCOUNTER 2023-01-25 06:07 | Outpatient (REF) | payer MEDICARE, SELFPAY ==
[2023-01-25 05:57] LABS: MANUAL DIFF FLAG NO
[2023-01-25 06:20] LABS: Basophils Percent Auto 0.5 % (0-2); Eosinophils Absolute Auto 0.5 X10*3/uL (0.0-0.4); Eosinophils Percent Auto 5.8 % (0-4); Hematocrit 33.2 % (42.0-52.0); Hemoglobin 10.5 g/dl (14.0-18.0); Imm Gran Abs Auto 0.08 X10*3/uL (0.00-0.03); Lymphocytes Absolute Auto 1.1 X10*3/uL (1.2-4.9); Lymphocytes Percent Auto 13.5 % (20-40); Mean Corpuscular HGB Conc 31.6 g/dl (31.0-36.0); Mean Corpuscular Hemoglobin 30.3 pg (27.0-33.0); Mean Corpuscular Volume 95.7 fL (80.0-98.0); Mean Platelet Volume 9.5 fL (9.4-12.4); Monocytes Absolute Auto 0.8 X10*3/uL (0.1-1.2); Monocytes Percent Auto 10.1 % (2-11); Neutrophils Absolute Auto 5.7 x10*3/uL (2.0-8.3); Neutrophils Percent Auto 69.1 % (45-73); Platelet Count 174 X10*3/uL (160-400); Red Blood Count 3.47 X10*6/uL (4.60-5.80); Red Cell Distribution Width 14.6 % (11.0-16.0); White Blood Count 8.2 X10*3/uL (4.8-10.8)
[2023-01-25 06:38] LABS: Anion Gap 16 (12-20); Blood Urea Nitrogen 42 mg/dL (9-16); Calcium 9.3 mg/dL (8.4-10.2); Carbon Dioxide 28 mmol/L (22-29); Chloride 96 mmol/L (96-108); Estimated Glomerular Filt Rate 12; Glucose Random 123 mg/dL (60-115); Potassium 4.5 mmol/L (3.3-5.1); Sodium 135 mmol/L (135-145)
== END 2023-01-25 06:08 | disposition home or self-care (01) ==
LOC: HO.MMNH3L 06:07
PROVIDERS: Visit Provider Family Medicine
DX: I12.0 Hypertensive chronic kidney disease with stage 5 chronic kidney disease or end stage renal disease (principal); E11.22 Type 2 diabetes mellitus with diabetic chronic kidney disease; N18.6 End stage renal disease
CPT/HCPCS: 36415; 80048; 85025

== ENCOUNTER 2023-02-01 06:09 | Outpatient (REF) | payer MEDICARE, SELFPAY ==
[2023-02-01 06:56] LABS: Basophils Percent Auto 0.5 % (0-2); Eosinophils Absolute Auto 0.5 X10*3/uL (0.0-0.4); Eosinophils Percent Auto 8.5 % (0-4); Hematocrit 32.2 % (42.0-52.0); Hemoglobin 10.4 g/dl (14.0-18.0); Imm Gran Abs Auto 0.04 X10*3/uL (0.00-0.03); Imm Gran Pct Auto 0.7 % (0.0-0.4); Lymphocytes Absolute Auto 0.8 X10*3/uL (1.2-4.9); Lymphocytes Percent Auto 12.7 % (20-40); MANUAL DIFF FLAG NO; Mean Corpuscular HGB Conc 32.3 g/dl (31.0-36.0); Mean Corpuscular Hemoglobin 30.4 pg (27.0-33.0); Mean Corpuscular Volume 94.2 fL (80.0-98.0); Mean Platelet Volume 10.1 fL (9.4-12.4); Monocytes Absolute Auto 0.8 X10*3/uL (0.1-1.2); Monocytes Percent Auto 12.7 % (2-11); Neutrophils Absolute Auto 3.9 x10*3/uL (2.0-8.3); Neutrophils Percent Auto 64.9 % (45-73); Platelet Count 130 X10*3/uL (160-400); Red Blood Count 3.42 X10*6/uL (4.60-5.80); Red Cell Distribution Width 14.8 % (11.0-16.0)
[2023-02-01 07:45] LABS: Anion Gap 18 (12-20); Blood Urea Nitrogen 44 mg/dL (9-16); Calcium 8.8 mg/dL (8.4-10.2); Carbon Dioxide 28 mmol/L (22-29); Chloride 92 mmol/L (96-108); Glucose Random 238 mg/dL (60-115); Sodium 134 mmol/L (135-145)
[2023-02-01 07:59] LABS: Estimated Glomerular Filt Rate 12
== END 2023-02-01 06:10 | disposition home or self-care (01) ==
LOC: HO.MMNH3L 06:09
PROVIDERS: Visit Provider Family Medicine
DX: I12.0 Hypertensive chronic kidney disease with stage 5 chronic kidney disease or end stage renal disease (principal); E11.22 Type 2 diabetes mellitus with diabetic chronic kidney disease; N18.6 End stage renal disease
CPT/HCPCS: 36415; 80048; 85025

== ENCOUNTER 2023-02-08 05:53 | Outpatient (REF) | payer MEDICARE, SELFPAY ==
[2023-02-08 05:45] LABS: MANUAL DIFF FLAG NO
[2023-02-08 06:24] LABS: Basophils Absolute Auto 0.1 X10*3/uL (0.0-0.2); Basophils Percent Auto 0.8 % (0-2); Eosinophils Percent Auto 12.6 % (0-4); Hematocrit 35.3 % (42.0-52.0); Hemoglobin 11.1 g/dl (14.0-18.0); Imm Gran Abs Auto 0.06 X10*3/uL (0.00-0.03); Imm Gran Pct Auto 0.8 % (0.0-0.4); Lymphocytes Absolute Auto 0.9 X10*3/uL (1.2-4.9); Lymphocytes Percent Auto 12.2 % (20-40); Mean Corpuscular HGB Conc 31.4 g/dl (31.0-36.0); Mean Corpuscular Hemoglobin 30.3 pg (27.0-33.0); Mean Corpuscular Volume 96.4 fL (80.0-98.0); Mean Platelet Volume 9.9 fL (9.4-12.4); Monocytes Absolute Auto 0.6 X10*3/uL (0.1-1.2); Neutrophils Percent Auto 65.6 % (45-73); Platelet Count 163 X10*3/uL (160-400); Red Blood Count 3.66 X10*6/uL (4.60-5.80); Red Cell Distribution Width 14.6 % (11.0-16.0); White Blood Count 7.6 X10*3/uL (4.8-10.8)
[2023-02-08 06:39] LABS: Anion Gap 16 (12-20); Blood Urea Nitrogen 36 mg/dL (9-16); Calcium 9.6 mg/dL (8.4-10.2); Carbon Dioxide 30 mmol/L (22-29); Chloride 96 mmol/L (96-108); Glucose Random 188 mg/dL (60-115); Potassium 4.6 mmol/L (3.3-5.1); Sodium 137 mmol/L (135-145)
[2023-02-08 06:40] LABS: Estimated Glomerular Filt Rate 12
== END 2023-02-08 05:54 | disposition home or self-care (01) ==
LOC: HO.MMNH3L 05:53
PROVIDERS: Visit Provider Family Medicine
DX: E11.22 Type 2 diabetes mellitus with diabetic chronic kidney disease (principal); I12.0 Hypertensive chronic kidney disease with stage 5 chronic kidney disease or end stage renal disease; N18.6 End stage renal disease
CPT/HCPCS: 36415; 80048; 85025

== ENCOUNTER 2023-02-15 06:08 | Outpatient (REF) | payer MEDICARE, SELFPAY ==
[2023-02-15 06:00] LABS: MANUAL DIFF FLAG NO
[2023-02-15 06:53] LABS: Basophils Absolute Auto 0.1 X10*3/uL (0.0-0.2); Basophils Percent Auto 0.8 % (0-2); Eosinophils Absolute Auto 1.5 X10*3/uL (0.0-0.4); Eosinophils Percent Auto 17.6 % (0-4); Hematocrit 35.1 % (42.0-52.0); Hemoglobin 11.2 g/dl (14.0-18.0); Imm Gran Abs Auto 0.08 X10*3/uL (0.00-0.03); Imm Gran Pct Auto 0.9 % (0.0-0.4); Lymphocytes Absolute Auto 1.1 X10*3/uL (1.2-4.9); Lymphocytes Percent Auto 12.8 % (20-40); Mean Corpuscular HGB Conc 31.9 g/dl (31.0-36.0); Mean Corpuscular Hemoglobin 29.6 pg (27.0-33.0); Mean Corpuscular Volume 92.9 fL (80.0-98.0); Mean Platelet Volume 9.2 fL (9.4-12.4); Monocytes Absolute Auto 0.9 X10*3/uL (0.1-1.2); Monocytes Percent Auto 10.4 % (2-11); Neutrophils Absolute Auto 4.8 x10*3/uL (2.0-8.3); Neutrophils Percent Auto 57.5 % (45-73); Platelet Count 151 X10*3/uL (160-400); Red Blood Count 3.78 X10*6/uL (4.60-5.80); Red Cell Distribution Width 14.6 % (11.0-16.0); White Blood Count 8.4 X10*3/uL (4.8-10.8)
[2023-02-15 07:21] LABS: Anion Gap 18 (12-20); Blood Urea Nitrogen 42 mg/dL (9-16); Carbon Dioxide 29 mmol/L (22-29); Chloride 93 mmol/L (96-108); Glucose Random 116 mg/dL (60-115); Potassium 4.6 mmol/L (3.3-5.1); Sodium 135 mmol/L (135-145)
[2023-02-15 10:38] LABS: Estimated Glomerular Filt Rate 13
== END 2023-02-15 06:09 | disposition home or self-care (01) ==
LOC: HO.MMNH3L 06:08
PROVIDERS: Visit Provider Family Medicine
DX: I12.0 Hypertensive chronic kidney disease with stage 5 chronic kidney disease or end stage renal disease (principal); E11.22 Type 2 diabetes mellitus with diabetic chronic kidney disease; N18.6 End stage renal disease
CPT/HCPCS: 36415; 80048; 85025

== ENCOUNTER 2023-02-22 05:49 | Outpatient (REF) | payer MEDICARE, SELFPAY ==
[2023-02-22 05:43] LABS: MANUAL DIFF FLAG NO
[2023-02-22 06:26] LABS: Basophils Absolute Auto 0.1 X10*3/uL (0.0-0.2); Basophils Percent Auto 0.7 % (0-2); Eosinophils Absolute Auto 1.9 X10*3/uL (0.0-0.4); Eosinophils Percent Auto 18.9 % (0-4); Hematocrit 34.3 % (42.0-52.0); Imm Gran Abs Auto 0.11 X10*3/uL (0.00-0.03); Imm Gran Pct Auto 1.1 % (0.0-0.4); Lymphocytes Absolute Auto 1.1 X10*3/uL (1.2-4.9); Lymphocytes Percent Auto 11.2 % (20-40); Mean Corpuscular HGB Conc 32.1 g/dl (31.0-36.0); Mean Corpuscular Volume 93.5 fL (80.0-98.0); Mean Platelet Volume 9.3 fL (9.4-12.4); Monocytes Absolute Auto 0.9 X10*3/uL (0.1-1.2); Monocytes Percent Auto 9.3 % (2-11); Neutrophils Absolute Auto 5.8 x10*3/uL (2.0-8.3); Neutrophils Percent Auto 58.8 % (45-73); Platelet Count 147 X10*3/uL (160-400); Red Blood Count 3.67 X10*6/uL (4.60-5.80); Red Cell Distribution Width 14.3 % (11.0-16.0); White Blood Count 9.8 X10*3/uL (4.8-10.8)
[2023-02-22 06:53] LABS: Anion Gap 16 (12-20); Blood Urea Nitrogen 47 mg/dL (9-16); Calcium 9.8 mg/dL (8.4-10.2); Carbon Dioxide 29 mmol/L (22-29); Chloride 93 mmol/L (96-108); Estimated Glomerular Filt Rate 11; Glucose Random 142 mg/dL (60-115); Potassium 4.5 mmol/L (3.3-5.1); Sodium 133 mmol/L (135-145)
== END 2023-02-22 05:50 | disposition home or self-care (01) ==
LOC: HO.MMNH3L 05:49
PROVIDERS: Visit Provider Family Medicine
DX: I12.0 Hypertensive chronic kidney disease with stage 5 chronic kidney disease or end stage renal disease (principal); E11.22 Type 2 diabetes mellitus with diabetic chronic kidney disease; N18.6 End stage renal disease
CPT/HCPCS: 36415; 80048; 85025

== ENCOUNTER 2023-03-01 06:25 | Outpatient (REF) | payer MEDICARE, SELFPAY ==
[2023-03-01 06:10] LABS: MANUAL DIFF FLAG NO
[2023-03-01 06:22] LABS: Basophils Absolute Auto 0.1 X10*3/uL (0.0-0.2); Basophils Percent Auto 0.7 % (0-2); Eosinophils Absolute Auto 1.6 X10*3/uL (0.0-0.4); Eosinophils Percent Auto 17.9 % (0-4); Hematocrit 35.6 % (42.0-52.0); Hemoglobin 11.4 g/dl (14.0-18.0); Imm Gran Abs Auto 0.07 X10*3/uL (0.00-0.03); Imm Gran Pct Auto 0.8 % (0.0-0.4); Lymphocytes Absolute Auto 1.1 X10*3/uL (1.2-4.9); Lymphocytes Percent Auto 12.4 % (20-40); Mean Corpuscular Hemoglobin 29.2 pg (27.0-33.0); Mean Corpuscular Volume 91.3 fL (80.0-98.0); Mean Platelet Volume 9.5 fL (9.4-12.4); Monocytes Absolute Auto 0.5 X10*3/uL (0.1-1.2); Neutrophils Absolute Auto 5.6 x10*3/uL (2.0-8.3); Neutrophils Percent Auto 62.2 % (45-73); Platelet Count 150 X10*3/uL (160-400); Red Cell Distribution Width 14.3 % (11.0-16.0); White Blood Count 8.9 X10*3/uL (4.8-10.8)
[2023-03-01 07:10] LABS: Anion Gap 15 (12-20); Blood Urea Nitrogen 43 mg/dL (9-16); Calcium 9.6 mg/dL (8.4-10.2); Carbon Dioxide 31 mmol/L (22-29); Chloride 92 mmol/L (96-108); Glucose Random 75 mg/dL (60-115); Potassium 4.4 mmol/L (3.3-5.1); Sodium 134 mmol/L (135-145)
[2023-03-01 07:32] LABS: Estimated Glomerular Filt Rate 12
== END 2023-03-01 06:26 | disposition home or self-care (01) ==
LOC: HO.MMNH3L 06:25
PROVIDERS: Visit Provider Family Medicine
DX: I12.0 Hypertensive chronic kidney disease with stage 5 chronic kidney disease or end stage renal disease (principal); E11.22 Type 2 diabetes mellitus with diabetic chronic kidney disease; N18.6 End stage renal disease
CPT/HCPCS: 36415; 80048; 85025

== ENCOUNTER 2023-03-08 05:49 | Outpatient (REF) | payer MEDICARE, SELFPAY ==
[2023-03-08 05:45] LABS: MANUAL DIFF FLAG NO
[2023-03-08 06:46] LABS: Basophils Absolute Auto 0.1 X10*3/uL (0.0-0.2); Basophils Percent Auto 0.7 % (0-2); Eosinophils Absolute Auto 1.3 X10*3/uL (0.0-0.4); Eosinophils Percent Auto 17.3 % (0-4); Hematocrit 35.5 % (42.0-52.0); Hemoglobin 11.2 g/dl (14.0-18.0); Imm Gran Abs Auto 0.08 X10*3/uL (0.00-0.03); Imm Gran Pct Auto 1.1 % (0.0-0.4); Lymphocytes Absolute Auto 1.1 X10*3/uL (1.2-4.9); Mean Corpuscular HGB Conc 31.5 g/dl (31.0-36.0); Mean Corpuscular Hemoglobin 29.2 pg (27.0-33.0); Mean Corpuscular Volume 92.7 fL (80.0-98.0); Mean Platelet Volume 9.5 fL (9.4-12.4); Monocytes Absolute Auto 0.7 X10*3/uL (0.1-1.2); Monocytes Percent Auto 9.6 % (2-11); Neutrophils Absolute Auto 4.3 x10*3/uL (2.0-8.3); Neutrophils Percent Auto 57.3 % (45-73); Platelet Count 155 X10*3/uL (160-400); Red Blood Count 3.83 X10*6/uL (4.60-5.80); Red Cell Distribution Width 14.7 % (11.0-16.0); White Blood Count 7.5 X10*3/uL (4.8-10.8)
[2023-03-08 07:25] LABS: Anion Gap 16 (12-20); Blood Urea Nitrogen 42 mg/dL (9-16); Calcium 9.7 mg/dL (8.4-10.2); Carbon Dioxide 29 mmol/L (22-29); Chloride 95 mmol/L (96-108); Estimated Glomerular Filt Rate 11; Glucose Random 190 mg/dL (60-115); Potassium 4.9 mmol/L (3.3-5.1); Sodium 135 mmol/L (135-145)
== END 2023-03-08 05:50 | disposition home or self-care (01) ==
LOC: HO.MMNH3L 05:49
PROVIDERS: Visit Provider Family Medicine
DX: I12.0 Hypertensive chronic kidney disease with stage 5 chronic kidney disease or end stage renal disease (principal); E11.22 Type 2 diabetes mellitus with diabetic chronic kidney disease; N18.6 End stage renal disease
CPT/HCPCS: 36415; 80048; 85025

== ENCOUNTER 2023-03-22 06:16 | Outpatient (REF) | payer MEDICARE, SELFPAY ==
[2023-03-22 06:06] LABS: MANUAL DIFF FLAG NO
[2023-03-22 07:02] LABS: Anion Gap 16 (12-20); Blood Urea Nitrogen 53 mg/dL (9-16); Calcium 9.9 mg/dL (8.4-10.2); Carbon Dioxide 31 mmol/L (22-29); Chloride 93 mmol/L (96-108); Glucose Random 202 mg/dL (60-115); Potassium 4.7 mmol/L (3.3-5.1); Sodium 135 mmol/L (135-145)
[2023-03-22 07:08] LABS: Basophils Percent Auto 0.5 % (0-2); Eosinophils Percent Auto 15.6 % (0-4); Hematocrit 36.2 % (42.0-52.0); Hemoglobin 11.7 g/dl (14.0-18.0); Imm Gran Abs Auto 0.07 X10*3/uL (0.00-0.03); Imm Gran Pct Auto 1.1 % (0.0-0.4); Lymphocytes Absolute Auto 0.9 X10*3/uL (1.2-4.9); Lymphocytes Percent Auto 13.6 % (20-40); Mean Corpuscular HGB Conc 32.3 g/dl (31.0-36.0); Mean Corpuscular Hemoglobin 29.7 pg (27.0-33.0); Mean Corpuscular Volume 91.9 fL (80.0-98.0); Mean Platelet Volume 9.4 fL (9.4-12.4); Monocytes Absolute Auto 0.6 X10*3/uL (0.1-1.2); Monocytes Percent Auto 8.9 % (2-11); Neutrophils Absolute Auto 3.9 x10*3/uL (2.0-8.3); Neutrophils Percent Auto 60.3 % (45-73); Platelet Count 120 X10*3/uL (160-400); Red Blood Count 3.94 X10*6/uL (4.60-5.80); Red Cell Distribution Width 14.6 % (11.0-16.0); White Blood Count 6.4 X10*3/uL (4.8-10.8)
[2023-03-22 07:51] LABS: Estimated Glomerular Filt Rate 11
== END 2023-03-22 06:17 | disposition home or self-care (01) ==
LOC: HO.MMNH3L 06:16
PROVIDERS: Visit Provider Family Medicine
DX: E11.22 Type 2 diabetes mellitus with diabetic chronic kidney disease (principal); I12.0 Hypertensive chronic kidney disease with stage 5 chronic kidney disease or end stage renal disease; N18.6 End stage renal disease
CPT/HCPCS: 36415; 80048; 85025

== ENCOUNTER 2023-03-29 06:30 | Outpatient (REF) | payer MEDICARE, SELFPAY ==
[2023-03-29 05:48] LABS: MANUAL DIFF FLAG NO
[2023-03-29 06:03] LABS: Basophils Absolute Auto 0.1 X10*3/uL (0.0-0.2); Basophils Percent Auto 0.6 % (0-2); Eosinophils Absolute Auto 1.1 X10*3/uL (0.0-0.4); Eosinophils Percent Auto 12.9 % (0-4); Hematocrit 33.5 % (42.0-52.0); Hemoglobin 10.8 g/dl (14.0-18.0); Imm Gran Abs Auto 0.09 X10*3/uL (0.00-0.03); Imm Gran Pct Auto 1.1 % (0.0-0.4); Lymphocytes Absolute Auto 1.1 X10*3/uL (1.2-4.9); Lymphocytes Percent Auto 12.6 % (20-40); Mean Corpuscular HGB Conc 32.2 g/dl (31.0-36.0); Mean Corpuscular Hemoglobin 29.6 pg (27.0-33.0); Mean Corpuscular Volume 91.8 fL (80.0-98.0); Mean Platelet Volume 9.7 fL (9.4-12.4); Monocytes Absolute Auto 0.7 X10*3/uL (0.1-1.2); Monocytes Percent Auto 7.9 % (2-11); Neutrophils Absolute Auto 5.5 x10*3/uL (2.0-8.3); Neutrophils Percent Auto 64.9 % (45-73); Platelet Count 139 X10*3/uL (160-400); Red Blood Count 3.65 X10*6/uL (4.60-5.80); Red Cell Distribution Width 14.6 % (11.0-16.0); White Blood Count 8.5 X10*3/uL (4.8-10.8)
[2023-03-29 07:04] LABS: Anion Gap 16 (12-20); Blood Urea Nitrogen 55 mg/dL (9-16); Calcium 9.7 mg/dL (8.4-10.2); Carbon Dioxide 31 mmol/L (22-29); Chloride 93 mmol/L (96-108); Glucose Random 72 mg/dL (60-115); Sodium 136 mmol/L (135-145)
[2023-03-29 07:08] LABS: Estimated Glomerular Filt Rate 11
== END 2023-03-29 06:31 | disposition home or self-care (01) ==
LOC: HO.MMNH3L 06:30
PROVIDERS: Visit Provider Family Medicine
DX: E11.22 Type 2 diabetes mellitus with diabetic chronic kidney disease (principal); I12.9 Hypertensive chronic kidney disease with stage 1 through stage 4 chronic kidney disease, or unspecified chronic kidney disease; N18.6 End stage renal disease
CPT/HCPCS: 36415; 80048; 85025

== ENCOUNTER 2023-04-05 05:58 | Outpatient (REF) | payer MEDICARE, SELFPAY ==
[2023-04-05 05:52] LABS: MANUAL DIFF FLAG NO
[2023-04-05 06:34] LABS: Basophils Percent Auto 0.4 % (0-2); Eosinophils Absolute Auto 1.1 X10*3/uL (0.0-0.4); Eosinophils Percent Auto 11.8 % (0-4); Hematocrit 34.8 % (42.0-52.0); Hemoglobin 11.1 g/dl (14.0-18.0); Imm Gran Abs Auto 0.11 X10*3/uL (0.00-0.03); Imm Gran Pct Auto 1.2 % (0.0-0.4); Lymphocytes Absolute Auto 1.3 X10*3/uL (1.2-4.9); Lymphocytes Percent Auto 13.6 % (20-40); Mean Corpuscular HGB Conc 31.9 g/dl (31.0-36.0); Mean Corpuscular Hemoglobin 29.6 pg (27.0-33.0); Mean Corpuscular Volume 92.8 fL (80.0-98.0); Mean Platelet Volume 9.7 fL (9.4-12.4); Monocytes Absolute Auto 0.8 X10*3/uL (0.1-1.2); Monocytes Percent Auto 8.8 % (2-11); Neutrophils Percent Auto 64.2 % (45-73); Platelet Count 139 X10*3/uL (160-400); Red Blood Count 3.75 X10*6/uL (4.60-5.80); Red Cell Distribution Width 14.8 % (11.0-16.0); White Blood Count 9.4 X10*3/uL (4.8-10.8)
[2023-04-05 07:10] LABS: Anion Gap 18 (12-20); Blood Urea Nitrogen 56 mg/dL (9-16); Carbon Dioxide 28 mmol/L (22-29); Chloride 93 mmol/L (96-108); Estimated Glomerular Filt Rate 11; Glucose Random 112 mg/dL (60-115); Potassium 4.6 mmol/L (3.3-5.1); Sodium 134 mmol/L (135-145)
== END 2023-04-05 05:59 | disposition home or self-care (01) ==
LOC: HO.MMNH3L 05:58
PROVIDERS: Visit Provider Family Medicine
DX: I12.0 Hypertensive chronic kidney disease with stage 5 chronic kidney disease or end stage renal disease (principal); E11.22 Type 2 diabetes mellitus with diabetic chronic kidney disease; N18.6 End stage renal disease
CPT/HCPCS: 36415; 80048; 85025

== ENCOUNTER 2023-04-12 06:03 | Outpatient (REF) | payer MEDICARE, SELFPAY ==
[2023-04-12 05:56] LABS: MANUAL DIFF FLAG NO
[2023-04-12 06:19] LABS: Basophils Absolute Auto 0.1 X10*3/uL (0.0-0.2); Basophils Percent Auto 0.6 % (0-2); Eosinophils Absolute Auto 0.9 X10*3/uL (0.0-0.4); Eosinophils Percent Auto 11.5 % (0-4); Hematocrit 34.9 % (42.0-52.0); Hemoglobin 11.1 g/dl (14.0-18.0); Imm Gran Abs Auto 0.06 X10*3/uL (0.00-0.03); Imm Gran Pct Auto 0.8 % (0.0-0.4); Lymphocytes Absolute Auto 0.9 X10*3/uL (1.2-4.9); Lymphocytes Percent Auto 11.4 % (20-40); Mean Corpuscular HGB Conc 31.8 g/dl (31.0-36.0); Mean Corpuscular Hemoglobin 29.7 pg (27.0-33.0); Mean Corpuscular Volume 93.3 fL (80.0-98.0); Mean Platelet Volume 9.2 fL (9.4-12.4); Monocytes Absolute Auto 0.7 X10*3/uL (0.1-1.2); Monocytes Percent Auto 8.9 % (2-11); Neutrophils Absolute Auto 5.3 x10*3/uL (2.0-8.3); Neutrophils Percent Auto 66.8 % (45-73); Platelet Count 150 X10*3/uL (160-400); Red Blood Count 3.74 X10*6/uL (4.60-5.80); Red Cell Distribution Width 15.3 % (11.0-16.0); White Blood Count 7.9 X10*3/uL (4.8-10.8)
[2023-04-12 08:31] LABS: Anion Gap 17 (12-20); Blood Urea Nitrogen 55 mg/dL (9-16); Calcium 10.3 mg/dL (8.4-10.2); Carbon Dioxide 30 mmol/L (22-29); Chloride 91 mmol/L (96-108); Estimated Glomerular Filt Rate 11; Glucose Random 132 mg/dL (60-115); Potassium 4.9 mmol/L (3.3-5.1); Sodium 133 mmol/L (135-145)
== END 2023-04-12 06:04 | disposition home or self-care (01) ==
LOC: HO.MMNH2L 06:03
PROVIDERS: Visit Provider Family Medicine
DX: I10 Essential (primary) hypertension (principal)
CPT/HCPCS: 36415; 80048; 85025

== ENCOUNTER 2023-04-19 06:22 | Outpatient (REF) | payer MEDICARE, SELFPAY ==
[2023-04-19 06:15] LABS: MANUAL DIFF FLAG NO
[2023-04-19 06:52] LABS: Anion Gap 17 (12-20); Blood Urea Nitrogen 55 mg/dL (9-16); Calcium 9.8 mg/dL (8.4-10.2); Carbon Dioxide 28 mmol/L (22-29); Chloride 94 mmol/L (96-108); Estimated Glomerular Filt Rate 10; Glucose Random 130 mg/dL (60-115); Potassium 4.4 mmol/L (3.3-5.1); Sodium 135 mmol/L (135-145)
[2023-04-19 07:01] LABS: Basophils Percent Auto 0.5 % (0-2); Eosinophils Absolute Auto 0.8 X10*3/uL (0.0-0.4); Eosinophils Percent Auto 10.6 % (0-4); Hematocrit 33.9 % (42.0-52.0); Hemoglobin 10.7 g/dl (14.0-18.0); Imm Gran Abs Auto 0.06 X10*3/uL (0.00-0.03); Imm Gran Pct Auto 0.8 % (0.0-0.4); Lymphocytes Absolute Auto 0.9 X10*3/uL (1.2-4.9); Lymphocytes Percent Auto 12.2 % (20-40); Mean Corpuscular HGB Conc 31.6 g/dl (31.0-36.0); Mean Corpuscular Hemoglobin 30.1 pg (27.0-33.0); Mean Corpuscular Volume 95.2 fL (80.0-98.0); Mean Platelet Volume 9.9 fL (9.4-12.4); Monocytes Absolute Auto 0.7 X10*3/uL (0.1-1.2); Neutrophils Absolute Auto 4.9 x10*3/uL (2.0-8.3); Neutrophils Percent Auto 65.9 % (45-73); Platelet Count 129 X10*3/uL (160-400); Red Blood Count 3.56 X10*6/uL (4.60-5.80); Red Cell Distribution Width 15.2 % (11.0-16.0); White Blood Count 7.4 X10*3/uL (4.8-10.8)
== END 2023-04-19 06:23 | disposition home or self-care (01) ==
LOC: HO.MMNH3L 06:22
PROVIDERS: Visit Provider Family Medicine
DX: I12.0 Hypertensive chronic kidney disease with stage 5 chronic kidney disease or end stage renal disease (principal); E11.22 Type 2 diabetes mellitus with diabetic chronic kidney disease; N18.6 End stage renal disease
CPT/HCPCS: 36415; 80048; 85025

== ENCOUNTER 2023-04-26 07:14 | Outpatient (REF) | payer MEDICARE, SELFPAY | END 2023-04-26 07:15 | disposition home or self-care (01) | LOC: HO.MMNH3L 07:14 | PROVIDERS: Visit Provider Family Medicine | DX: I12.0 Hypertensive chronic kidney disease with stage 5 chronic kidney disease or end stage renal disease (principal); E11.22 Type 2 diabetes mellitus with diabetic chronic kidney disease; N18.6 End stage renal disease | CPT/HCPCS: 36415; 80048; 85025 ==

== ENCOUNTER 2023-05-03 06:09 | Outpatient (REF) | payer MEDICARE, SELFPAY ==
[2023-05-03 05:47] LABS: MANUAL DIFF FLAG NO
[2023-05-03 06:01] LABS: Basophils Absolute Auto 0.1 X10*3/uL (0.0-0.2); Basophils Percent Auto 0.6 % (0-2); Eosinophils Absolute Auto 0.9 X10*3/uL (0.0-0.4); Eosinophils Percent Auto 11.5 % (0-4); Hematocrit 37.2 % (42.0-52.0); Hemoglobin 11.6 g/dl (14.0-18.0); Imm Gran Abs Auto 0.08 X10*3/uL (0.00-0.03); Lymphocytes Absolute Auto 0.8 X10*3/uL (1.2-4.9); Lymphocytes Percent Auto 9.6 % (20-40); Mean Corpuscular HGB Conc 31.2 g/dl (31.0-36.0); Mean Corpuscular Hemoglobin 29.6 pg (27.0-33.0); Mean Corpuscular Volume 94.9 fL (80.0-98.0); Mean Platelet Volume 9.7 fL (9.4-12.4); Monocytes Absolute Auto 0.7 X10*3/uL (0.1-1.2); Monocytes Percent Auto 8.7 % (2-11); Neutrophils Absolute Auto 5.4 x10*3/uL (2.0-8.3); Neutrophils Percent Auto 68.6 % (45-73); Platelet Count 131 X10*3/uL (160-400); Red Blood Count 3.92 X10*6/uL (4.60-5.80); Red Cell Distribution Width 15.3 % (11.0-16.0); White Blood Count 7.9 X10*3/uL (4.8-10.8)
[2023-05-03 06:19] LABS: Anion Gap 18 (12-20); Blood Urea Nitrogen 53 mg/dL (9-16); Calcium 10.2 mg/dL (8.4-10.2); Carbon Dioxide 27 mmol/L (22-29); Chloride 91 mmol/L (96-108); Glucose Random 132 mg/dL (60-115); Potassium 4.9 mmol/L (3.3-5.1); Sodium 131 mmol/L (135-145)
[2023-05-03 06:22] LABS: Estimated Glomerular Filt Rate 9
== END 2023-05-03 06:10 | disposition home or self-care (01) ==
LOC: HO.MMNH3L 06:09
PROVIDERS: Visit Provider Family Medicine
DX: I12.0 Hypertensive chronic kidney disease with stage 5 chronic kidney disease or end stage renal disease (principal); E11.22 Type 2 diabetes mellitus with diabetic chronic kidney disease; N18.6 End stage renal disease
CPT/HCPCS: 36415; 80048; 85025

== ENCOUNTER 2023-05-10 06:05 | Outpatient (REF) | payer MEDICARE, SELFPAY ==
[2023-05-10 06:01] LABS: MANUAL DIFF FLAG NO
[2023-05-10 06:51] LABS: Basophils Absolute Auto 0.1 X10*3/uL (0.0-0.2); Basophils Percent Auto 0.6 % (0-2); Eosinophils Absolute Auto 0.9 X10*3/uL (0.0-0.4); Eosinophils Percent Auto 11.5 % (0-4); Hematocrit 37.6 % (42.0-52.0); Hemoglobin 11.9 g/dl (14.0-18.0); Imm Gran Abs Auto 0.08 X10*3/uL (0.00-0.03); Lymphocytes Absolute Auto 1.1 X10*3/uL (1.2-4.9); Lymphocytes Percent Auto 13.4 % (20-40); Mean Corpuscular HGB Conc 31.6 g/dl (31.0-36.0); Mean Corpuscular Hemoglobin 30.4 pg (27.0-33.0); Mean Corpuscular Volume 95.9 fL (80.0-98.0); Monocytes Absolute Auto 0.7 X10*3/uL (0.1-1.2); Monocytes Percent Auto 8.6 % (2-11); Neutrophils Absolute Auto 5.3 x10*3/uL (2.0-8.3); Neutrophils Percent Auto 64.9 % (45-73); Platelet Count 131 X10*3/uL (160-400); Red Blood Count 3.92 X10*6/uL (4.60-5.80); Red Cell Distribution Width 15.5 % (11.0-16.0); White Blood Count 8.2 X10*3/uL (4.8-10.8)
[2023-05-10 07:34] LABS: Anion Gap 16 (12-20); Blood Urea Nitrogen 53 mg/dL (9-16); Calcium 10.2 mg/dL (8.4-10.2); Carbon Dioxide 31 mmol/L (22-29); Chloride 94 mmol/L (96-108); Potassium 5.1 mmol/L (3.3-5.1); Sodium 136 mmol/L (135-145)
[2023-05-10 07:54] LABS: Estimated Glomerular Filt Rate 10; Glucose Random 58 mg/dL (60-115)
== END 2023-05-10 06:06 | disposition home or self-care (01) ==
LOC: HO.MMNH3L 06:05
PROVIDERS: Visit Provider Family Medicine
DX: E11.22 Type 2 diabetes mellitus with diabetic chronic kidney disease (principal); I12.0 Hypertensive chronic kidney disease with stage 5 chronic kidney disease or end stage renal disease; N18.6 End stage renal disease
CPT/HCPCS: 36415; 80048; 85025

== ENCOUNTER 2023-05-17 06:04 | Outpatient (REF) | payer MEDICARE, SELFPAY ==
[2023-05-17 06:05] LABS: MANUAL DIFF FLAG NO
[2023-05-17 06:39] LABS: Basophils Percent Auto 0.5 % (0-2); Eosinophils Absolute Auto 0.6 X10*3/uL (0.0-0.4); Hematocrit 35.3 % (42.0-52.0); Hemoglobin 11.2 g/dl (14.0-18.0); Imm Gran Abs Auto 0.05 X10*3/uL (0.00-0.03); Imm Gran Pct Auto 0.6 % (0.0-0.4); Lymphocytes Absolute Auto 0.5 X10*3/uL (1.2-4.9); Lymphocytes Percent Auto 6.8 % (20-40); Mean Corpuscular HGB Conc 31.7 g/dl (31.0-36.0); Mean Corpuscular Hemoglobin 30.5 pg (27.0-33.0); Mean Corpuscular Volume 96.2 fL (80.0-98.0); Mean Platelet Volume 10.3 fL (9.4-12.4); Monocytes Absolute Auto 0.7 X10*3/uL (0.1-1.2); Monocytes Percent Auto 8.7 % (2-11); Neutrophils Percent Auto 76.4 % (45-73); Platelet Count 127 X10*3/uL (160-400); Red Blood Count 3.67 X10*6/uL (4.60-5.80); Red Cell Distribution Width 15.5 % (11.0-16.0); White Blood Count 7.9 X10*3/uL (4.8-10.8)
[2023-05-17 07:01] LABS: Anion Gap 23 (12-20); Blood Urea Nitrogen 60 mg/dL (9-16); Calcium 9.9 mg/dL (8.4-10.2); Carbon Dioxide 29 mmol/L (22-29); Chloride 93 mmol/L (96-108); Estimated Glomerular Filt Rate 9; Glucose Random 247 mg/dL (60-115); Potassium 5.5 mmol/L (3.3-5.1); Sodium 139 mmol/L (135-145)
== END 2023-05-17 06:05 | disposition home or self-care (01) ==
LOC: HO.MMNH3L 06:04
PROVIDERS: Visit Provider Family Medicine
DX: E11.22 Type 2 diabetes mellitus with diabetic chronic kidney disease (principal); I12.0 Hypertensive chronic kidney disease with stage 5 chronic kidney disease or end stage renal disease; N18.6 End stage renal disease
CPT/HCPCS: 36415; 80048; 85025

== ENCOUNTER 2023-05-24 05:55 | Outpatient (REF) | payer MEDICARE, SELFPAY ==
[2023-05-24 05:53] LABS: MANUAL DIFF FLAG NO
[2023-05-24 06:01] LABS: Basophils Absolute Auto 0.1 X10*3/uL (0.0-0.2); Basophils Percent Auto 0.7 % (0-2); Eosinophils Absolute Auto 0.7 X10*3/uL (0.0-0.4); Eosinophils Percent Auto 9.7 % (0-4); Hematocrit 36.1 % (42.0-52.0); Hemoglobin 11.5 g/dl (14.0-18.0); Imm Gran Abs Auto 0.04 X10*3/uL (0.00-0.03); Imm Gran Pct Auto 0.6 % (0.0-0.4); Lymphocytes Absolute Auto 0.7 X10*3/uL (1.2-4.9); Lymphocytes Percent Auto 9.8 % (20-40); Mean Corpuscular HGB Conc 31.9 g/dl (31.0-36.0); Mean Corpuscular Hemoglobin 30.4 pg (27.0-33.0); Mean Corpuscular Volume 95.5 fL (80.0-98.0); Mean Platelet Volume 9.3 fL (9.4-12.4); Monocytes Absolute Auto 0.6 X10*3/uL (0.1-1.2); Monocytes Percent Auto 7.6 % (2-11); Neutrophils Absolute Auto 5.2 x10*3/uL (2.0-8.3); Neutrophils Percent Auto 71.6 % (45-73); Platelet Count 134 X10*3/uL (160-400); Red Blood Count 3.78 X10*6/uL (4.60-5.80); Red Cell Distribution Width 15.2 % (11.0-16.0); White Blood Count 7.3 X10*3/uL (4.8-10.8)
[2023-05-24 06:42] LABS: Anion Gap 21 (12-20); Blood Urea Nitrogen 51 mg/dL (9-16); Calcium 9.6 mg/dL (8.4-10.2); Carbon Dioxide 24 mmol/L (22-29); Chloride 93 mmol/L (96-108); Glucose Random 140 mg/dL (60-115); Potassium 5.2 mmol/L (3.3-5.1); Sodium 133 mmol/L (135-145)
[2023-05-24 07:28] LABS: Estimated Glomerular Filt Rate 10
== END 2023-05-24 05:56 | disposition home or self-care (01) ==
LOC: HO.MMNH3L 05:55
PROVIDERS: Visit Provider Family Medicine
DX: I12.0 Hypertensive chronic kidney disease with stage 5 chronic kidney disease or end stage renal disease (principal); E11.22 Type 2 diabetes mellitus with diabetic chronic kidney disease; N18.6 End stage renal disease
CPT/HCPCS: 36415; 80048; 85025

== ENCOUNTER 2023-05-28 20:35 | Outpatient (REF) | payer MEDICARE, SELFPAY | END 2023-05-28 20:36 | disposition home or self-care (01) | LOC: HO.MMNH3L 20:35 | PROVIDERS: Visit Provider Family Medicine | DX: R50.9 Fever, unspecified (principal) | CPT/HCPCS: 87070 ==

== ENCOUNTER 2023-05-31 06:11 | Outpatient (REF) | payer MEDICARE, SELFPAY ==
[2023-05-31 06:03] LABS: MANUAL DIFF FLAG NO
[2023-05-31 06:49] LABS: Basophils Absolute Auto 0.1 X10*3/uL (0.0-0.2); Basophils Percent Auto 0.6 % (0-2); Eosinophils Absolute Auto 0.6 X10*3/uL (0.0-0.4); Eosinophils Percent Auto 7.1 % (0-4); Hematocrit 37.5 % (42.0-52.0); Imm Gran Abs Auto 0.06 X10*3/uL (0.00-0.03); Imm Gran Pct Auto 0.7 % (0.0-0.4); Lymphocytes Absolute Auto 0.7 X10*3/uL (1.2-4.9); Lymphocytes Percent Auto 8.4 % (20-40); Mean Corpuscular Hemoglobin 30.6 pg (27.0-33.0); Mean Corpuscular Volume 95.7 fL (80.0-98.0); Mean Platelet Volume 9.8 fL (9.4-12.4); Monocytes Absolute Auto 0.6 X10*3/uL (0.1-1.2); Monocytes Percent Auto 7.5 % (2-11); Neutrophils Absolute Auto 6.2 x10*3/uL (2.0-8.3); Neutrophils Percent Auto 75.7 % (45-73); Platelet Count 123 X10*3/uL (160-400); Red Blood Count 3.92 X10*6/uL (4.60-5.80); Red Cell Distribution Width 14.9 % (11.0-16.0); White Blood Count 8.1 X10*3/uL (4.8-10.8)
[2023-05-31 10:29] LABS: Anion Gap 17 (12-20); Blood Urea Nitrogen 52 mg/dL (9-16); Carbon Dioxide 27 mmol/L (22-29); Chloride 93 mmol/L (96-108); Glucose Random 114 mg/dL (60-115); Potassium 5.4 mmol/L (3.3-5.1); Sodium 132 mmol/L (135-145)
[2023-05-31 11:09] LABS: Estimated Glomerular Filt Rate 8
== END 2023-05-31 06:12 | disposition home or self-care (01) ==
LOC: HO.MMNH3L 06:11
PROVIDERS: Visit Provider Family Medicine
DX: I12.0 Hypertensive chronic kidney disease with stage 5 chronic kidney disease or end stage renal disease (principal); E11.22 Type 2 diabetes mellitus with diabetic chronic kidney disease; N18.6 End stage renal disease
CPT/HCPCS: 36415; 80048; 85025

== ENCOUNTER 2023-06-07 06:08 | Outpatient (REF) | payer MEDICARE, SELFPAY ==
[2023-06-07 05:53] LABS: MANUAL DIFF FLAG NO
[2023-06-07 07:05] LABS: Basophils Percent Auto 0.4 % (0-2); Eosinophils Absolute Auto 0.6 X10*3/uL (0.0-0.4); Hematocrit 37.8 % (42.0-52.0); Hemoglobin 12.2 g/dl (14.0-18.0); Imm Gran Abs Auto 0.06 X10*3/uL (0.00-0.03); Imm Gran Pct Auto 0.7 % (0.0-0.4); Lymphocytes Absolute Auto 0.7 X10*3/uL (1.2-4.9); Lymphocytes Percent Auto 7.9 % (20-40); Mean Corpuscular HGB Conc 32.3 g/dl (31.0-36.0); Mean Corpuscular Hemoglobin 30.8 pg (27.0-33.0); Mean Corpuscular Volume 95.5 fL (80.0-98.0); Mean Platelet Volume 9.9 fL (9.4-12.4); Monocytes Absolute Auto 0.5 X10*3/uL (0.1-1.2); Monocytes Percent Auto 6.4 % (2-11); Neutrophils Absolute Auto 6.6 x10*3/uL (2.0-8.3); Neutrophils Percent Auto 77.6 % (45-73); Platelet Count 125 X10*3/uL (160-400); Red Blood Count 3.96 X10*6/uL (4.60-5.80); Red Cell Distribution Width 14.6 % (11.0-16.0); White Blood Count 8.5 X10*3/uL (4.8-10.8)
[2023-06-07 08:36] LABS: Anion Gap 20 (12-20); Blood Urea Nitrogen 48 mg/dL (9-16); Calcium 10.3 mg/dL (8.4-10.2); Carbon Dioxide 28 mmol/L (22-29); Chloride 91 mmol/L (96-108); Estimated Glomerular Filt Rate 9; Glucose Random 160 mg/dL (60-115); Sodium 134 mmol/L (135-145)
== END 2023-06-07 06:09 | disposition home or self-care (01) ==
LOC: HO.MMNH3L 06:08
PROVIDERS: Visit Provider Family Medicine
DX: E11.22 Type 2 diabetes mellitus with diabetic chronic kidney disease (principal); I12.9 Hypertensive chronic kidney disease with stage 1 through stage 4 chronic kidney disease, or unspecified chronic kidney disease; N18.6 End stage renal disease
CPT/HCPCS: 36415; 80048; 85025

== ENCOUNTER 2023-06-14 06:03 | Outpatient (REF) | payer MEDICARE, SELFPAY ==
[2023-06-14 06:00] LABS: MANUAL DIFF FLAG NO
[2023-06-14 06:56] LABS: Basophils Absolute Auto 0.1 X10*3/uL (0.0-0.2); Basophils Percent Auto 0.5 % (0-2); Eosinophils Absolute Auto 0.5 X10*3/uL (0.0-0.4); Eosinophils Percent Auto 4.6 % (0-4); Hemoglobin 12.7 g/dl (14.0-18.0); Imm Gran Abs Auto 0.06 X10*3/uL (0.00-0.03); Imm Gran Pct Auto 0.6 % (0.0-0.4); Lymphocytes Absolute Auto 0.7 X10*3/uL (1.2-4.9); Lymphocytes Percent Auto 7.1 % (20-40); Mean Corpuscular HGB Conc 31.8 g/dl (31.0-36.0); Mean Corpuscular Hemoglobin 30.4 pg (27.0-33.0); Mean Corpuscular Volume 95.7 fL (80.0-98.0); Mean Platelet Volume 9.4 fL (9.4-12.4); Monocytes Absolute Auto 0.9 X10*3/uL (0.1-1.2); Monocytes Percent Auto 8.4 % (2-11); Neutrophils Absolute Auto 7.9 x10*3/uL (2.0-8.3); Neutrophils Percent Auto 78.8 % (45-73); Platelet Count 162 X10*3/uL (160-400); Red Blood Count 4.18 X10*6/uL (4.60-5.80); Red Cell Distribution Width 14.6 % (11.0-16.0); White Blood Count 10.1 X10*3/uL (4.8-10.8)
[2023-06-14 07:19] LABS: Anion Gap 20 (12-20); Blood Urea Nitrogen 43 mg/dL (9-16); Calcium 10.2 mg/dL (8.4-10.2); Carbon Dioxide 29 mmol/L (22-29); Chloride 90 mmol/L (96-108); Glucose Random 139 mg/dL (60-115); Potassium 4.4 mmol/L (3.3-5.1); Sodium 135 mmol/L (135-145)
[2023-06-14 08:09] LABS: Estimated Glomerular Filt Rate 9
== END 2023-06-14 06:04 | disposition home or self-care (01) ==
LOC: HO.MMNH3L 06:03
PROVIDERS: Visit Provider Family Medicine
DX: I12.0 Hypertensive chronic kidney disease with stage 5 chronic kidney disease or end stage renal disease (principal); E11.22 Type 2 diabetes mellitus with diabetic chronic kidney disease; N18.6 End stage renal disease
CPT/HCPCS: 36415; 80048; 85025

== ENCOUNTER 2023-06-15 05:46 | Outpatient (REF) | payer MEDICARE, SELFPAY ==
[2023-06-15 07:16] LABS: Appearance Urine Turbid; Color Urine Orange; Glucose Urine UA Negative (Negative); Leukocyte Esterase Urine Large (3+) (Negative); Nitrite Urine Negative (Negative); Specific Gravity - Urine 1.015 (1.005-1.025); UMIC TRIGGER UACC YES; Urine Blood Large (3+) (Negative); Urine Ketones Negative (Negative); Urine Protein >=1000 (4+) mg/dL (Neg-Trace)
[2023-06-15 07:31] LABS: Bacteria Urine 3+ (None Seen); Hyaline Casts Urine 0-2 /LPF (0-2); RBC Urine >20 /HPF (0-2); Squamous Epithelial Cell Urine >20 /HPF (0-2); UACC Culture Trigger YES; WBC Urine >50 /HPF (0-5)
== END 2023-06-15 05:47 | disposition home or self-care (01) ==
LOC: HO.MMNH3L 05:46
PROVIDERS: Visit Provider Family Medicine
DX: R31.9 Hematuria, unspecified (principal)
CPT/HCPCS: 81001; 87086; 87088; 87186

== ENCOUNTER 2023-06-22 | Outpatient (REF) | payer MEDICARE, SELFPAY ==
[2023-06-22 10:33] LABS: MANUAL DIFF FLAG NO
[2023-06-22 10:53] LABS: Basophils Percent Auto 0.5 % (0-2); Eosinophils Absolute Auto 0.4 X10*3/uL (0.0-0.4); Eosinophils Percent Auto 4.5 % (0-4); Hematocrit 42.1 % (42.0-52.0); Hemoglobin 13.5 g/dl (14.0-18.0); Imm Gran Abs Auto 0.06 X10*3/uL (0.00-0.03); Imm Gran Pct Auto 0.7 % (0.0-0.4); Lymphocytes Absolute Auto 0.6 X10*3/uL (1.2-4.9); Lymphocytes Percent Auto 6.5 % (20-40); Mean Corpuscular HGB Conc 32.1 g/dl (31.0-36.0); Mean Corpuscular Hemoglobin 30.8 pg (27.0-33.0); Mean Corpuscular Volume 95.9 fL (80.0-98.0); Monocytes Absolute Auto 0.5 X10*3/uL (0.1-1.2); Monocytes Percent Auto 5.3 % (2-11); Neutrophils Percent Auto 82.5 % (45-73); Platelet Count 148 X10*3/uL (160-400); Red Blood Count 4.39 X10*6/uL (4.60-5.80); Red Cell Distribution Width 14.6 % (11.0-16.0); White Blood Count 8.5 X10*3/uL (4.8-10.8)
[2023-06-22 11:26] LABS: Anion Gap 16 (12-20); Blood Urea Nitrogen 17 mg/dL (9-16); Calcium 9.8 mg/dL (8.4-10.2); Carbon Dioxide 31 mmol/L (22-29); Chloride 92 mmol/L (96-108); Estimated Glomerular Filt Rate 15; Glucose Random 165 mg/dL (60-115); Potassium 3.5 mmol/L (3.3-5.1); Sodium 135 mmol/L (135-145)
== END 2023-06-22 00:01 | disposition home or self-care (01) ==
LOC: HO.MMNH3L
PROVIDERS: Visit Provider Family Medicine
DX: E11.22 Type 2 diabetes mellitus with diabetic chronic kidney disease (principal); I12.0 Hypertensive chronic kidney disease with stage 5 chronic kidney disease or end stage renal disease; N18.6 End stage renal disease
CPT/HCPCS: 36415; 80048; 85025

== ENCOUNTER 2023-06-28 05:53 | Outpatient (REF) | payer MEDICARE, SELFPAY ==
[2023-06-28 05:51] LABS: MANUAL DIFF FLAG NO
[2023-06-28 06:25] LABS: Basophils Absolute Auto 0.1 X10*3/uL (0.0-0.2); Basophils Percent Auto 0.8 % (0-2); Eosinophils Absolute Auto 0.3 X10*3/uL (0.0-0.4); Eosinophils Percent Auto 3.6 % (0-4); Hematocrit 38.7 % (42.0-52.0); Hemoglobin 12.6 g/dl (14.0-18.0); Imm Gran Pct Auto 1.1 % (0.0-0.4); Lymphocytes Absolute Auto 0.7 X10*3/uL (1.2-4.9); Lymphocytes Percent Auto 7.7 % (20-40); Mean Corpuscular HGB Conc 32.6 g/dl (31.0-36.0); Mean Corpuscular Hemoglobin 31.1 pg (27.0-33.0); Mean Corpuscular Volume 95.6 fL (80.0-98.0); Mean Platelet Volume 10.1 fL (9.4-12.4); Monocytes Absolute Auto 0.5 X10*3/uL (0.1-1.2); Monocytes Percent Auto 5.7 % (2-11); Neutrophils Absolute Auto 7.3 x10*3/uL (2.0-8.3); Neutrophils Percent Auto 81.1 % (45-73); Platelet Count 156 X10*3/uL (160-400); Red Blood Count 4.05 X10*6/uL (4.60-5.80); Red Cell Distribution Width 15.1 % (11.0-16.0)
[2023-06-28 07:02] LABS: Anion Gap 22 (12-20); Blood Urea Nitrogen 58 mg/dL (9-16); Calcium 9.9 mg/dL (8.4-10.2); Carbon Dioxide 25 mmol/L (22-29); Chloride 88 mmol/L (96-108); Glucose Random 237 mg/dL (60-115); Potassium 4.4 mmol/L (3.3-5.1); Sodium 131 mmol/L (135-145)
[2023-06-28 07:31] LABS: Estimated Glomerular Filt Rate 9
== END 2023-06-28 05:54 | disposition home or self-care (01) ==
LOC: HO.MMNH3L 05:53
PROVIDERS: Visit Provider Family Medicine
DX: I12.0 Hypertensive chronic kidney disease with stage 5 chronic kidney disease or end stage renal disease (principal); E11.22 Type 2 diabetes mellitus with diabetic chronic kidney disease; N18.6 End stage renal disease
CPT/HCPCS: 36415; 80048; 85025

== ENCOUNTER 2023-07-05 07:18 | Outpatient (REF) | payer MEDICARE, SELFPAY ==
[2023-07-05 06:10] LABS: MANUAL DIFF FLAG NO
[2023-07-05 06:55] LABS: Basophils Absolute Auto 0.1 X10*3/uL (0.0-0.2); Basophils Percent Auto 0.7 % (0-2); Eosinophils Absolute Auto 0.5 X10*3/uL (0.0-0.4); Eosinophils Percent Auto 4.3 % (0-4); Hematocrit 36.5 % (42.0-52.0); Hemoglobin 11.8 g/dl (14.0-18.0); Imm Gran Abs Auto 0.06 X10*3/uL (0.00-0.03); Imm Gran Pct Auto 0.5 % (0.0-0.4); Lymphocytes Absolute Auto 0.7 X10*3/uL (1.2-4.9); Lymphocytes Percent Auto 6.4 % (20-40); Mean Corpuscular HGB Conc 32.3 g/dl (31.0-36.0); Mean Corpuscular Volume 95.8 fL (80.0-98.0); Mean Platelet Volume 9.7 fL (9.4-12.4); Monocytes Absolute Auto 0.7 X10*3/uL (0.1-1.2); Monocytes Percent Auto 6.6 % (2-11); Neutrophils Absolute Auto 9.1 x10*3/uL (2.0-8.3); Neutrophils Percent Auto 81.5 % (45-73); Platelet Count 160 X10*3/uL (160-400); Red Blood Count 3.81 X10*6/uL (4.60-5.80); Red Cell Distribution Width 15.6 % (11.0-16.0); White Blood Count 11.1 X10*3/uL (4.8-10.8)
[2023-07-05 07:13] LABS: Anion Gap 19 (12-20); Blood Urea Nitrogen 43 mg/dL (9-16); Calcium 9.7 mg/dL (8.4-10.2); Carbon Dioxide 26 mmol/L (22-29); Chloride 90 mmol/L (96-108); Glucose Random 85 mg/dL (60-115); Potassium 4.3 mmol/L (3.3-5.1); Sodium 131 mmol/L (135-145)
[2023-07-05 07:50] LABS: Estimated Glomerular Filt Rate 9
== END 2023-07-05 07:19 | disposition home or self-care (01) ==
LOC: HO.MMNH3L 07:18
PROVIDERS: Visit Provider Family Medicine
DX: I12.0 Hypertensive chronic kidney disease with stage 5 chronic kidney disease or end stage renal disease (principal); E11.22 Type 2 diabetes mellitus with diabetic chronic kidney disease; N18.6 End stage renal disease
CPT/HCPCS: 36415; 80048; 85025

== ENCOUNTER 2023-07-12 06:10 | Outpatient (REF) | payer MEDICARE, SELFPAY ==
[2023-07-12 05:56] LABS: MANUAL DIFF FLAG NO
[2023-07-12 06:34] LABS: Anion Gap 23 (12-20); Blood Urea Nitrogen 43 mg/dL (9-16); Calcium 9.5 mg/dL (8.4-10.2); Carbon Dioxide 24 mmol/L (22-29); Chloride 91 mmol/L (96-108); Estimated Glomerular Filt Rate 10; Glucose Random 80 mg/dL (60-115); Potassium 3.9 mmol/L (3.3-5.1); Sodium 134 mmol/L (135-145)
[2023-07-12 06:51] LABS: Basophils Absolute Auto 0.1 X10*3/uL (0.0-0.2); Basophils Percent Auto 0.7 % (0-2); Eosinophils Absolute Auto 0.5 X10*3/uL (0.0-0.4); Eosinophils Percent Auto 5.5 % (0-4); Hematocrit 40.7 % (42.0-52.0); Hemoglobin 12.7 g/dl (14.0-18.0); Lymphocytes Absolute Auto 0.9 X10*3/uL (1.2-4.9); Lymphocytes Percent Auto 8.9 % (20-40); Mean Corpuscular HGB Conc 31.2 g/dl (31.0-36.0); Mean Corpuscular Hemoglobin 30.5 pg (27.0-33.0); Mean Corpuscular Volume 97.8 fL (80.0-98.0); Monocytes Absolute Auto 0.9 X10*3/uL (0.1-1.2); Neutrophils Absolute Auto 7.4 x10*3/uL (2.0-8.3); Neutrophils Percent Auto 74.9 % (45-73); Platelet Count 178 X10*3/uL (160-400); Red Blood Count 4.16 X10*6/uL (4.60-5.80); Red Cell Distribution Width 15.6 % (11.0-16.0); White Blood Count 9.9 X10*3/uL (4.8-10.8)
== END 2023-07-12 06:11 | disposition home or self-care (01) ==
LOC: HO.MMNH3L 06:10
PROVIDERS: Visit Provider Family Medicine
DX: E11.22 Type 2 diabetes mellitus with diabetic chronic kidney disease (principal); I12.0 Hypertensive chronic kidney disease with stage 5 chronic kidney disease or end stage renal disease; N18.6 End stage renal disease
CPT/HCPCS: 36415; 80048; 85025

== ENCOUNTER 2023-07-19 06:24 | Outpatient (REF) | payer MEDICARE, SELFPAY ==
[2023-07-19 06:13] LABS: MANUAL DIFF FLAG NO
[2023-07-19 06:58] LABS: Basophils Absolute Auto 0.1 X10*3/uL (0.0-0.2); Basophils Percent Auto 0.5 % (0-2); Eosinophils Absolute Auto 0.3 X10*3/uL (0.0-0.4); Eosinophils Percent Auto 1.7 % (0-4); Hematocrit 42.3 % (42.0-52.0); Hemoglobin 13.2 g/dl (14.0-18.0); Imm Gran Abs Auto 0.12 X10*3/uL (0.00-0.03); Imm Gran Pct Auto 0.8 % (0.0-0.4); Lymphocytes Absolute Auto 0.8 X10*3/uL (1.2-4.9); Lymphocytes Percent Auto 5.2 % (20-40); Mean Corpuscular HGB Conc 31.2 g/dl (31.0-36.0); Mean Corpuscular Hemoglobin 30.9 pg (27.0-33.0); Mean Corpuscular Volume 99.1 fL (80.0-98.0); Mean Platelet Volume 10.3 fL (9.4-12.4); Monocytes Absolute Auto 0.8 X10*3/uL (0.1-1.2); Monocytes Percent Auto 5.4 % (2-11); Neutrophils Percent Auto 86.4 % (45-73); Platelet Count 153 X10*3/uL (160-400); Red Blood Count 4.27 X10*6/uL (4.60-5.80); Red Cell Distribution Width 15.5 % (11.0-16.0)
[2023-07-19 07:09] LABS: Anion Gap 23 (12-20); Blood Urea Nitrogen 45 mg/dL (9-16); Calcium 9.9 mg/dL (8.4-10.2); Carbon Dioxide 23 mmol/L (22-29); Chloride 90 mmol/L (96-108); Glucose Random 116 mg/dL (60-115); Potassium 4.8 mmol/L (3.3-5.1); Sodium 131 mmol/L (135-145)
[2023-07-19 07:48] LABS: Estimated Glomerular Filt Rate 9
== END 2023-07-19 06:25 | disposition home or self-care (01) ==
LOC: HO.MMNH3L 06:24
PROVIDERS: Visit Provider Family Medicine
DX: I12.0 Hypertensive chronic kidney disease with stage 5 chronic kidney disease or end stage renal disease (principal); E11.22 Type 2 diabetes mellitus with diabetic chronic kidney disease; N18.6 End stage renal disease
CPT/HCPCS: 36415; 80048; 85025

== ENCOUNTER 2023-08-03 05:26 | Outpatient (REF) | payer MEDICARE, SELFPAY ==
[2023-08-03 05:36] LABS: MANUAL DIFF FLAG NO
[2023-08-03 06:24] LABS: Basophils Absolute Auto 0.1 X10*3/uL (0.0-0.2); Basophils Percent Auto 0.9 % (0-2); Eosinophils Absolute Auto 0.5 X10*3/uL (0.0-0.4); Eosinophils Percent Auto 5.1 % (0-4); Hemoglobin 11.1 g/dl (14.0-18.0); Imm Gran Abs Auto 0.11 X10*3/uL (0.00-0.03); Imm Gran Pct Auto 1.1 % (0.0-0.4); Lymphocytes Absolute Auto 0.9 X10*3/uL (1.2-4.9); Lymphocytes Percent Auto 9.4 % (20-40); Mean Corpuscular HGB Conc 31.7 g/dl (31.0-36.0); Mean Corpuscular Hemoglobin 30.7 pg (27.0-33.0); Mean Platelet Volume 9.7 fL (9.4-12.4); Monocytes Absolute Auto 0.8 X10*3/uL (0.1-1.2); Neutrophils Absolute Auto 7.5 x10*3/uL (2.0-8.3); Neutrophils Percent Auto 75.5 % (45-73); Platelet Count 280 X10*3/uL (160-400); Red Blood Count 3.61 X10*6/uL (4.60-5.80); Red Cell Distribution Width 15.3 % (11.0-16.0); White Blood Count 9.9 X10*3/uL (4.8-10.8)
[2023-08-03 06:57] LABS: Alanine Aminotransferase 18 U/L (0-40); Albumin Level 3.9 g/dL (3.5-5.0); Alkaline Phosphatase 206 U/L (39-117); Anion Gap 25 (12-20); Aspartate Amino Transferase 19 U/L (5-37); Bilirubin Total 0.5 mg/dL (0.0-1.0); Blood Urea Nitrogen 67 mg/dL (9-16); Calcium 9.7 mg/dL (8.4-10.2); Carbon Dioxide 21 mmol/L (22-29); Chloride 89 mmol/L (96-108); Glucose Random 140 mg/dL (60-115); Potassium 5.9 mmol/L (3.3-5.1); Sodium 129 mmol/L (135-145)
[2023-08-03 07:01] LABS: Estimated Glomerular Filt Rate 7
== END 2023-08-03 05:27 | disposition home or self-care (01) ==
LOC: HO.MMNH3L 05:26
PROVIDERS: Visit Provider Family Medicine
DX: I12.0 Hypertensive chronic kidney disease with stage 5 chronic kidney disease or end stage renal disease (principal); N18.6 End stage renal disease
CPT/HCPCS: 36415; 80053; 85025

== ENCOUNTER 2023-08-09 06:10 | Outpatient (REF) | payer MEDICARE, SELFPAY ==
[2023-08-09 06:07] LABS: MANUAL DIFF FLAG NO
[2023-08-09 07:05] LABS: Basophils Absolute Auto 0.1 X10*3/uL (0.0-0.2); Basophils Percent Auto 1.4 % (0-2); Eosinophils Absolute Auto 0.3 X10*3/uL (0.0-0.4); Eosinophils Percent Auto 5.6 % (0-4); Hematocrit 35.3 % (42.0-52.0); Imm Gran Abs Auto 0.03 X10*3/uL (0.00-0.03); Imm Gran Pct Auto 0.5 % (0.0-0.4); Lymphocytes Absolute Auto 0.7 X10*3/uL (1.2-4.9); Lymphocytes Percent Auto 12.2 % (20-40); Mean Corpuscular HGB Conc 31.2 g/dl (31.0-36.0); Mean Corpuscular Hemoglobin 30.8 pg (27.0-33.0); Mean Corpuscular Volume 98.9 fL (80.0-98.0); Mean Platelet Volume 9.7 fL (9.4-12.4); Monocytes Absolute Auto 0.6 X10*3/uL (0.1-1.2); Monocytes Percent Auto 9.5 % (2-11); Neutrophils Absolute Auto 4.1 x10*3/uL (2.0-8.3); Neutrophils Percent Auto 70.8 % (45-73); Platelet Count 172 X10*3/uL (160-400); Red Blood Count 3.57 X10*6/uL (4.60-5.80); Red Cell Distribution Width 15.4 % (11.0-16.0); White Blood Count 5.8 X10*3/uL (4.8-10.8)
[2023-08-09 08:19] LABS: Anion Gap 19 (12-20); Blood Urea Nitrogen 37 mg/dL (9-16); Calcium 9.4 mg/dL (8.4-10.2); Carbon Dioxide 28 mmol/L (22-29); Chloride 93 mmol/L (96-108); Estimated Glomerular Filt Rate 11; Glucose Random 50 mg/dL (60-115); Potassium 4.3 mmol/L (3.3-5.1); Sodium 136 mmol/L (135-145)
== END 2023-08-09 06:11 | disposition home or self-care (01) ==
LOC: HO.MMNH3L 06:10
PROVIDERS: Visit Provider Family Medicine
DX: I12.0 Hypertensive chronic kidney disease with stage 5 chronic kidney disease or end stage renal disease (principal); E11.22 Type 2 diabetes mellitus with diabetic chronic kidney disease; N18.6 End stage renal disease
CPT/HCPCS: 36415; 80048; 85025

== ENCOUNTER 2023-08-16 06:17 | Outpatient (REF) | payer MEDICARE, SELFPAY ==
[2023-08-16 06:09] LABS: MANUAL DIFF FLAG NO
[2023-08-16 06:51] LABS: Basophils Percent Auto 0.8 % (0-2); Eosinophils Absolute Auto 0.5 X10*3/uL (0.0-0.4); Eosinophils Percent Auto 8.9 % (0-4); Hemoglobin 11.3 g/dl (14.0-18.0); Imm Gran Abs Auto 0.03 X10*3/uL (0.00-0.03); Imm Gran Pct Auto 0.6 % (0.0-0.4); Lymphocytes Absolute Auto 0.9 X10*3/uL (1.2-4.9); Lymphocytes Percent Auto 18.2 % (20-40); Mean Corpuscular HGB Conc 30.5 g/dl (31.0-36.0); Mean Corpuscular Hemoglobin 30.2 pg (27.0-33.0); Mean Corpuscular Volume 98.9 fL (80.0-98.0); Monocytes Absolute Auto 0.5 X10*3/uL (0.1-1.2); Monocytes Percent Auto 9.7 % (2-11); Neutrophils Absolute Auto 3.2 x10*3/uL (2.0-8.3); Neutrophils Percent Auto 61.8 % (45-73); Red Blood Count 3.74 X10*6/uL (4.60-5.80); Red Cell Distribution Width 14.7 % (11.0-16.0); White Blood Count 5.2 X10*3/uL (4.8-10.8)
[2023-08-16 07:47] LABS: T4 Thyroxine 4.9 ug/dL (4.5-12.0); Thyroid Stimulating Hormone 6.43 uIU/mL (0.32-4.0)
[2023-08-16 07:55] LABS: Vitamin B12 624 pg/mL (200-900)
[2023-08-16 07:57] LABS: Anion Gap 20 (12-20); Blood Urea Nitrogen 37 mg/dL (9-16); Calcium 9.2 mg/dL (8.4-10.2); Carbon Dioxide 26 mmol/L (22-29); Chloride 93 mmol/L (96-108); Potassium 4.5 mmol/L (3.3-5.1); Sodium 134 mmol/L (135-145)
[2023-08-16 08:19] LABS: Platelet Count 119 X10*3/uL (160-400)
[2023-08-16 08:33] LABS: Estimated Glomerular Filt Rate 11; Glucose Random 59 mg/dL (60-115)
== END 2023-08-16 06:18 | disposition home or self-care (01) ==
LOC: HO.MMNH3L 06:17
PROVIDERS: Visit Provider Family Medicine
DX: E11.22 Type 2 diabetes mellitus with diabetic chronic kidney disease (principal); I12.0 Hypertensive chronic kidney disease with stage 5 chronic kidney disease or end stage renal disease; N18.6 End stage renal disease
CPT/HCPCS: 36415; 80048; 82607; 84436; 84443; 85025

== ENCOUNTER 2023-08-23 07:44 | Outpatient (REF) | payer MEDICARE, SELFPAY ==
[2023-08-23 06:19] LABS: MANUAL DIFF FLAG NO
[2023-08-23 07:29] LABS: Basophils Percent Auto 0.6 % (0-2); Eosinophils Absolute Auto 0.5 X10*3/uL (0.0-0.4); Eosinophils Percent Auto 8.7 % (0-4); Hematocrit 36.2 % (42.0-52.0); Hemoglobin 11.4 g/dl (14.0-18.0); Imm Gran Abs Auto 0.04 X10*3/uL (0.00-0.03); Imm Gran Pct Auto 0.7 % (0.0-0.4); Lymphocytes Absolute Auto 0.8 X10*3/uL (1.2-4.9); Lymphocytes Percent Auto 15.6 % (20-40); Mean Corpuscular HGB Conc 31.5 g/dl (31.0-36.0); Mean Corpuscular Hemoglobin 30.6 pg (27.0-33.0); Mean Corpuscular Volume 97.3 fL (80.0-98.0); Monocytes Absolute Auto 0.5 X10*3/uL (0.1-1.2); Monocytes Percent Auto 8.9 % (2-11); Neutrophils Absolute Auto 3.5 x10*3/uL (2.0-8.3); Neutrophils Percent Auto 65.5 % (45-73); Red Blood Count 3.72 X10*6/uL (4.60-5.80); Red Cell Distribution Width 14.6 % (11.0-16.0); White Blood Count 5.4 X10*3/uL (4.8-10.8)
[2023-08-23 07:44] LABS: Anion Gap 19 (12-20); Blood Urea Nitrogen 49 mg/dL (9-16); Calcium 9.4 mg/dL (8.4-10.2); Carbon Dioxide 28 mmol/L (22-29); Chloride 94 mmol/L (96-108); Estimated Glomerular Filt Rate 10; Glucose Random 89 mg/dL (60-115); Potassium 4.7 mmol/L (3.3-5.1); Sodium 136 mmol/L (135-145)
[2023-08-23 07:52] LABS: Free T4 (Free Thyroxine) 0.99 ng/dL (0.71-1.85); Thyroid Stimulating Hormone 6.15 uIU/mL (0.32-4.0)
[2023-08-23 08:15] LABS: Platelet Count 96 X10*3/uL (160-400)
== END 2023-08-23 07:45 | disposition home or self-care (01) ==
LOC: HO.MMNH3L 07:44
PROVIDERS: Visit Provider Family Medicine
DX: E11.22 Type 2 diabetes mellitus with diabetic chronic kidney disease (principal); I12.0 Hypertensive chronic kidney disease with stage 5 chronic kidney disease or end stage renal disease; N18.6 End stage renal disease
CPT/HCPCS: 36415; 80048; 84439; 84443; 84480; 84481; 85025

== ENCOUNTER 2023-08-30 06:20 | Outpatient (REF) | payer MEDICARE, SELFPAY ==
[2023-08-30 06:20] LABS: MANUAL DIFF FLAG NO
[2023-08-30 07:09] LABS: Basophils Percent Auto 0.6 % (0-2); Eosinophils Absolute Auto 0.5 X10*3/uL (0.0-0.4); Hematocrit 35.6 % (42.0-52.0); Hemoglobin 11.1 g/dl (14.0-18.0); Imm Gran Abs Auto 0.03 X10*3/uL (0.00-0.03); Imm Gran Pct Auto 0.6 % (0.0-0.4); Lymphocytes Absolute Auto 0.9 X10*3/uL (1.2-4.9); Lymphocytes Percent Auto 17.9 % (20-40); Mean Corpuscular HGB Conc 31.2 g/dl (31.0-36.0); Mean Corpuscular Hemoglobin 30.2 pg (27.0-33.0); Monocytes Absolute Auto 0.4 X10*3/uL (0.1-1.2); Monocytes Percent Auto 7.7 % (2-11); Neutrophils Absolute Auto 3.2 x10*3/uL (2.0-8.3); Neutrophils Percent Auto 63.2 % (45-73); Red Blood Count 3.67 X10*6/uL (4.60-5.80); Red Cell Distribution Width 14.4 % (11.0-16.0); White Blood Count 5.1 X10*3/uL (4.8-10.8)
[2023-08-30 07:12] LABS: Platelet Count 95 X10*3/uL (160-400)
[2023-08-30 07:21] LABS: Anion Gap 16 (12-20); Blood Urea Nitrogen 46 mg/dL (9-16); Calcium 9.2 mg/dL (8.4-10.2); Carbon Dioxide 29 mmol/L (22-29); Chloride 93 mmol/L (96-108); Potassium 4.4 mmol/L (3.3-5.1); Sodium 134 mmol/L (135-145)
[2023-08-30 07:51] LABS: Estimated Glomerular Filt Rate 11; Glucose Random 43 mg/dL (60-115)
== END 2023-08-30 06:21 | disposition home or self-care (01) ==
LOC: HO.MMNH3L 06:20
PROVIDERS: Visit Provider Family Medicine
DX: I12.0 Hypertensive chronic kidney disease with stage 5 chronic kidney disease or end stage renal disease (principal); E11.22 Type 2 diabetes mellitus with diabetic chronic kidney disease; N18.6 End stage renal disease
CPT/HCPCS: 36415; 80048; 85025

== ENCOUNTER 2023-09-07 03:46 | Outpatient (REF) | payer MEDICARE, SELFPAY ==
[2023-09-07 06:39] LABS: MANUAL DIFF FLAG NO
[2023-09-07 07:05] LABS: Basophils Percent Auto 0.6 % (0-2); Eosinophils Absolute Auto 0.5 X10*3/uL (0.0-0.4); Hemoglobin 10.6 g/dl (14.0-18.0); Imm Gran Abs Auto 0.02 X10*3/uL (0.00-0.03); Imm Gran Pct Auto 0.4 % (0.0-0.4); Lymphocytes Absolute Auto 0.8 X10*3/uL (1.2-4.9); Lymphocytes Percent Auto 15.9 % (20-40); Mean Corpuscular HGB Conc 32.1 g/dl (31.0-36.0); Mean Corpuscular Hemoglobin 30.4 pg (27.0-33.0); Mean Corpuscular Volume 94.6 fL (80.0-98.0); Mean Platelet Volume 9.2 fL (9.4-12.4); Monocytes Absolute Auto 0.5 X10*3/uL (0.1-1.2); Monocytes Percent Auto 9.7 % (2-11); Neutrophils Percent Auto 62.4 % (45-73); Red Blood Count 3.49 X10*6/uL (4.60-5.80); Red Cell Distribution Width 14.6 % (11.0-16.0); White Blood Count 4.7 X10*3/uL (4.8-10.8)
[2023-09-07 07:06] LABS: Platelet Count 97 X10*3/uL (160-400)
[2023-09-07 07:32] LABS: Anion Gap 15 (12-20); Blood Urea Nitrogen 44 mg/dL (9-16); Calcium 9.1 mg/dL (8.4-10.2); Carbon Dioxide 30 mmol/L (22-29); Chloride 94 mmol/L (96-108); Estimated Glomerular Filt Rate 12; Glucose Random 146 mg/dL (60-115); Potassium 4.1 mmol/L (3.3-5.1); Sodium 135 mmol/L (135-145)
== END 2023-09-07 03:47 | disposition home or self-care (01) ==
LOC: HO.MMNH3L 03:46
PROVIDERS: Visit Provider Family Medicine
DX: I12.0 Hypertensive chronic kidney disease with stage 5 chronic kidney disease or end stage renal disease (principal); E11.22 Type 2 diabetes mellitus with diabetic chronic kidney disease; N18.6 End stage renal disease
CPT/HCPCS: 36415; 80048; 85025

== ENCOUNTER 2023-09-13 06:28 | Outpatient (REF) | payer MEDICARE, SELFPAY ==
[2023-09-13 06:12] LABS: MANUAL DIFF FLAG NO
[2023-09-13 07:12] LABS: Basophils Percent Auto 0.5 % (0-2); Eosinophils Absolute Auto 0.7 X10*3/uL (0.0-0.4); Eosinophils Percent Auto 11.3 % (0-4); Hematocrit 36.7 % (42.0-52.0); Hemoglobin 11.5 g/dl (14.0-18.0); Imm Gran Abs Auto 0.04 X10*3/uL (0.00-0.03); Imm Gran Pct Auto 0.6 % (0.0-0.4); Lymphocytes Absolute Auto 0.9 X10*3/uL (1.2-4.9); Lymphocytes Percent Auto 15.2 % (20-40); Mean Corpuscular HGB Conc 31.3 g/dl (31.0-36.0); Mean Corpuscular Hemoglobin 29.9 pg (27.0-33.0); Mean Corpuscular Volume 95.6 fL (80.0-98.0); Mean Platelet Volume 10.6 fL (9.4-12.4); Monocytes Absolute Auto 0.5 X10*3/uL (0.1-1.2); Monocytes Percent Auto 8.1 % (2-11); Neutrophils Percent Auto 64.3 % (45-73); Platelet Count 105 X10*3/uL (160-400); Red Blood Count 3.84 X10*6/uL (4.60-5.80); Red Cell Distribution Width 14.7 % (11.0-16.0); White Blood Count 6.2 X10*3/uL (4.8-10.8)
[2023-09-13 07:13] LABS: Anion Gap 18 (12-20); Blood Urea Nitrogen 65 mg/dL (9-16); Calcium 9.8 mg/dL (8.4-10.2); Carbon Dioxide 29 mmol/L (22-29); Chloride 91 mmol/L (96-108); Estimated Glomerular Filt Rate 9; Glucose Random 75 mg/dL (60-115); Sodium 133 mmol/L (135-145)
== END 2023-09-13 06:29 | disposition home or self-care (01) ==
LOC: HO.MMNH3L 06:28
PROVIDERS: Visit Provider Family Medicine
DX: I12.0 Hypertensive chronic kidney disease with stage 5 chronic kidney disease or end stage renal disease (principal); E11.22 Type 2 diabetes mellitus with diabetic chronic kidney disease; N18.6 End stage renal disease
CPT/HCPCS: 36415; 80048; 85025

== ENCOUNTER 2023-09-20 07:20 | Outpatient (REF) | payer MEDICARE, MEDICAID, SELFPAY ==
[2023-09-20 06:12] LABS: MANUAL DIFF FLAG NO
[2023-09-20 07:09] LABS: Basophils Percent Auto 0.7 % (0-2); Eosinophils Absolute Auto 0.7 X10*3/uL (0.0-0.4); Eosinophils Percent Auto 11.8 % (0-4); Hematocrit 37.9 % (42.0-52.0); Hemoglobin 11.9 g/dl (14.0-18.0); Imm Gran Abs Auto 0.04 X10*3/uL (0.00-0.03); Imm Gran Pct Auto 0.7 % (0.0-0.4); Lymphocytes Absolute Auto 0.8 X10*3/uL (1.2-4.9); Lymphocytes Percent Auto 13.2 % (20-40); Mean Corpuscular HGB Conc 31.4 g/dl (31.0-36.0); Mean Corpuscular Hemoglobin 29.7 pg (27.0-33.0); Mean Corpuscular Volume 94.5 fL (80.0-98.0); Mean Platelet Volume 9.6 fL (9.4-12.4); Monocytes Absolute Auto 0.5 X10*3/uL (0.1-1.2); Monocytes Percent Auto 7.6 % (2-11); Neutrophils Absolute Auto 3.9 x10*3/uL (2.0-8.3); Red Blood Count 4.01 X10*6/uL (4.60-5.80); Red Cell Distribution Width 14.9 % (11.0-16.0); White Blood Count 5.9 X10*3/uL (4.8-10.8)
[2023-09-20 07:10] LABS: Platelet Count 96 X10*3/uL (160-400)
[2023-09-20 07:41] LABS: Anion Gap 19 (12-20); Blood Urea Nitrogen 53 mg/dL (9-16); Calcium 9.7 mg/dL (8.4-10.2); Carbon Dioxide 25 mmol/L (22-29); Chloride 95 mmol/L (96-108); Potassium 5.2 mmol/L (3.3-5.1); Sodium 134 mmol/L (135-145)
[2023-09-20 08:18] LABS: Estimated Glomerular Filt Rate 11; Glucose Random 39 mg/dL (60-115)
== END 2023-09-20 07:21 | disposition home or self-care (01) ==
LOC: HO.MMNH3L 07:20
PROVIDERS: Visit Provider Family Medicine
DX: I12.9 Hypertensive chronic kidney disease with stage 1 through stage 4 chronic kidney disease, or unspecified chronic kidney disease (principal); E11.22 Type 2 diabetes mellitus with diabetic chronic kidney disease; N18.6 End stage renal disease
CPT/HCPCS: 36415; 80048; 85025

== ENCOUNTER 2023-09-23 05:49 | Outpatient (REF) | payer MEDICARE, MEDICAID, SELFPAY ==
[2023-09-23 07:06] LABS: Appearance Urine Cloudy; Color Urine Dark Yellow; Glucose Urine UA 100 mg/dL (Negative); Leukocyte Esterase Urine Small (1+) (Negative); Nitrite Urine Negative (Negative); UMIC TRIGGER UACC YES; Urine Blood Negative (Negative); Urine Ketones Negative (Negative); Urine Protein 100 (2+) mg/dL (Neg-Trace)
[2023-09-23 07:47] LABS: Bacteria Urine None Seen (None Seen); Hyaline Casts Urine 0-2 /LPF (0-2); RBC Urine 0-2 /HPF (0-2); Squamous Epithelial Cell Urine 0-2 /HPF (0-2); UACC Culture Trigger YES
== END 2023-09-23 05:50 | disposition home or self-care (01) ==
LOC: HO.MMNH3L 05:49
PROVIDERS: Visit Provider Family Medicine
DX: R31.9 Hematuria, unspecified (principal)
CPT/HCPCS: 81001; 81003; 87086

== ENCOUNTER 2023-09-27 07:19 | Outpatient (REF) | payer MEDICARE, MEDICAID, SELFPAY ==
[2023-09-27 06:04] LABS: MANUAL DIFF FLAG NO
[2023-09-27 06:32] LABS: Basophils Absolute Auto 0.1 X10*3/uL (0.0-0.2); Eosinophils Absolute Auto 0.8 X10*3/uL (0.0-0.4); Eosinophils Percent Auto 12.5 % (0-4); Hematocrit 38.7 % (42.0-52.0); Hemoglobin 11.9 g/dl (14.0-18.0); Imm Gran Abs Auto 0.02 X10*3/uL (0.00-0.03); Imm Gran Pct Auto 0.3 % (0.0-0.4); Lymphocytes Absolute Auto 0.7 X10*3/uL (1.2-4.9); Lymphocytes Percent Auto 10.7 % (20-40); Mean Corpuscular HGB Conc 30.7 g/dl (31.0-36.0); Mean Corpuscular Hemoglobin 30.1 pg (27.0-33.0); Mean Corpuscular Volume 97.7 fL (80.0-98.0); Mean Platelet Volume 10.9 fL (9.4-12.4); Monocytes Absolute Auto 0.6 X10*3/uL (0.1-1.2); Monocytes Percent Auto 9.3 % (2-11); Neutrophils Absolute Auto 4.2 x10*3/uL (2.0-8.3); Neutrophils Percent Auto 66.2 % (45-73); Red Blood Count 3.96 X10*6/uL (4.60-5.80); Red Cell Distribution Width 15.1 % (11.0-16.0); White Blood Count 6.3 X10*3/uL (4.8-10.8)
[2023-09-27 06:33] LABS: Platelet Count 94 X10*3/uL (160-400)
[2023-09-27 06:52] LABS: Anion Gap 20 (12-20); Blood Urea Nitrogen 48 mg/dL (9-16); Calcium 9.8 mg/dL (8.4-10.2); Carbon Dioxide 22 mmol/L (22-29); Chloride 96 mmol/L (96-108); Estimated Glomerular Filt Rate 10; Glucose Random 78 mg/dL (60-115); Potassium 4.9 mmol/L (3.3-5.1); Sodium 133 mmol/L (135-145)
== END 2023-09-27 07:20 | disposition home or self-care (01) ==
LOC: HO.MMNH3L 07:19
PROVIDERS: Visit Provider Family Medicine
DX: I12.0 Hypertensive chronic kidney disease with stage 5 chronic kidney disease or end stage renal disease (principal); E11.22 Type 2 diabetes mellitus with diabetic chronic kidney disease; N18.6 End stage renal disease
CPT/HCPCS: 36415; 80048; 85025

== ENCOUNTER 2023-10-04 06:26 | Outpatient (REF) | payer MEDICARE, MEDICAID, SELFPAY ==
[2023-10-04 06:03] LABS: MANUAL DIFF FLAG NO
[2023-10-04 06:54] LABS: Basophils Percent Auto 0.7 % (0-2); Eosinophils Absolute Auto 0.7 X10*3/uL (0.0-0.4); Eosinophils Percent Auto 13.8 % (0-4); Hematocrit 35.9 % (42.0-52.0); Hemoglobin 11.5 g/dl (14.0-18.0); Imm Gran Abs Auto 0.03 X10*3/uL (0.00-0.03); Imm Gran Pct Auto 0.6 % (0.0-0.4); Lymphocytes Absolute Auto 0.9 X10*3/uL (1.2-4.9); Lymphocytes Percent Auto 16.9 % (20-40); Mean Corpuscular Hemoglobin 30.7 pg (27.0-33.0); Mean Corpuscular Volume 95.7 fL (80.0-98.0); Mean Platelet Volume 10.7 fL (9.4-12.4); Monocytes Absolute Auto 0.4 X10*3/uL (0.1-1.2); Neutrophils Absolute Auto 3.2 x10*3/uL (2.0-8.3); Platelet Count 90 X10*3/uL (160-400); Red Blood Count 3.75 X10*6/uL (4.60-5.80); Red Cell Distribution Width 14.7 % (11.0-16.0); White Blood Count 5.4 X10*3/uL (4.8-10.8)
[2023-10-04 07:23] LABS: Anion Gap 17 (12-20); Blood Urea Nitrogen 61 mg/dL (9-16); Calcium 9.8 mg/dL (8.4-10.2); Carbon Dioxide 28 mmol/L (22-29); Chloride 96 mmol/L (96-108); Estimated Glomerular Filt Rate 11; Glucose Random 66 mg/dL (60-115); Sodium 136 mmol/L (135-145)
== END 2023-10-04 06:27 | disposition home or self-care (01) ==
LOC: HO.MMNH3L 06:26
PROVIDERS: Visit Provider Family Medicine
DX: E11.22 Type 2 diabetes mellitus with diabetic chronic kidney disease (principal); I12.0 Hypertensive chronic kidney disease with stage 5 chronic kidney disease or end stage renal disease; N18.6 End stage renal disease
CPT/HCPCS: 36415; 80048; 85025

== ENCOUNTER 2023-10-12 06:34 | Outpatient (REF) | payer MEDICARE, MEDICAID, SELFPAY ==
[2023-10-12 06:16] LABS: MANUAL DIFF FLAG NO
[2023-10-12 06:45] LABS: Basophils Percent Auto 0.6 % (0-2); Eosinophils Absolute Auto 0.8 X10*3/uL (0.0-0.4); Eosinophils Percent Auto 11.8 % (0-4); Hematocrit 29.5 % (42.0-52.0); Hemoglobin 9.5 g/dl (14.0-18.0); Imm Gran Abs Auto 0.05 X10*3/uL (0.00-0.03); Imm Gran Pct Auto 0.8 % (0.0-0.4); Lymphocytes Absolute Auto 0.7 X10*3/uL (1.2-4.9); Lymphocytes Percent Auto 10.8 % (20-40); Mean Corpuscular HGB Conc 32.2 g/dl (31.0-36.0); Mean Corpuscular Hemoglobin 30.4 pg (27.0-33.0); Mean Corpuscular Volume 94.2 fL (80.0-98.0); Monocytes Absolute Auto 0.5 X10*3/uL (0.1-1.2); Monocytes Percent Auto 8.1 % (2-11); Neutrophils Absolute Auto 4.4 x10*3/uL (2.0-8.3); Neutrophils Percent Auto 67.9 % (45-73); Platelet Count 94 X10*3/uL (160-400); Red Blood Count 3.13 X10*6/uL (4.60-5.80); Red Cell Distribution Width 15.2 % (11.0-16.0); White Blood Count 6.5 X10*3/uL (4.8-10.8)
[2023-10-12 07:13] LABS: Anion Gap 20 (12-20); Blood Urea Nitrogen 101 mg/dL (9-16); Calcium 9.5 mg/dL (8.4-10.2); Carbon Dioxide 25 mmol/L (22-29); Chloride 93 mmol/L (96-108); Estimated Glomerular Filt Rate 9; Glucose Random 117 mg/dL (60-115); Potassium 5.9 mmol/L (3.3-5.1); Sodium 132 mmol/L (135-145)
== END 2023-10-12 06:35 | disposition home or self-care (01) ==
LOC: HO.MMNH3L 06:34
PROVIDERS: Visit Provider Family Medicine
DX: I12.9 Hypertensive chronic kidney disease with stage 1 through stage 4 chronic kidney disease, or unspecified chronic kidney disease (principal); E11.22 Type 2 diabetes mellitus with diabetic chronic kidney disease; N18.6 End stage renal disease
CPT/HCPCS: 36415; 80048; 85025

== ENCOUNTER 2023-10-19 10:44 | Outpatient (REF) | payer MEDICARE, SELFPAY | END 2023-10-19 10:45 | disposition home or self-care (01) | LOC: HO.MMNH3L 10:44 | PROVIDERS: Visit Provider Family Medicine | DX: Z13.89 Encounter for screening for other disorder (principal) ==

== ENCOUNTER 2023-10-25 10:44 | Outpatient (REF) | payer MEDICARE, MEDICAID, SELFPAY ==
[2023-10-25 06:27] LABS: MANUAL DIFF FLAG NO
[2023-10-25 06:35] LABS: Basophils Percent Auto 0.4 % (0-2); Eosinophils Absolute Auto 0.6 X10*3/uL (0.0-0.4); Eosinophils Percent Auto 9.4 % (0-4); Hematocrit 28.9 % (42.0-52.0); Hemoglobin 8.8 g/dl (14.0-18.0); Imm Gran Abs Auto 0.04 X10*3/uL (0.00-0.03); Imm Gran Pct Auto 0.6 % (0.0-0.4); Lymphocytes Absolute Auto 0.8 X10*3/uL (1.2-4.9); Lymphocytes Percent Auto 11.3 % (20-40); Mean Corpuscular HGB Conc 30.4 g/dl (31.0-36.0); Mean Corpuscular Hemoglobin 30.1 pg (27.0-33.0); Mean Platelet Volume 10.2 fL (9.4-12.4); Monocytes Absolute Auto 0.6 X10*3/uL (0.1-1.2); Monocytes Percent Auto 9.4 % (2-11); Neutrophils Absolute Auto 4.6 x10*3/uL (2.0-8.3); Neutrophils Percent Auto 68.9 % (45-73); Platelet Count 133 X10*3/uL (160-400); Red Blood Count 2.92 X10*6/uL (4.60-5.80); Red Cell Distribution Width 16.7 % (11.0-16.0); White Blood Count 6.7 X10*3/uL (4.8-10.8)
[2023-10-25 08:25] LABS: Anion Gap 15 (12-20); Blood Urea Nitrogen 38 mg/dL (9-16); Calcium 9.1 mg/dL (8.4-10.2); Carbon Dioxide 30 mmol/L (22-29); Chloride 92 mmol/L (96-108); Estimated Glomerular Filt Rate 11; Glucose Random 112 mg/dL (60-115); Potassium 3.9 mmol/L (3.3-5.1); Sodium 133 mmol/L (135-145)
== END 2023-10-25 10:45 | disposition home or self-care (01) ==
LOC: HO.MMNH3L 10:44
PROVIDERS: Visit Provider Family Medicine
DX: N18.6 End stage renal disease (principal); E11.22 Type 2 diabetes mellitus with diabetic chronic kidney disease; I12.0 Hypertensive chronic kidney disease with stage 5 chronic kidney disease or end stage renal disease
CPT/HCPCS: 36415; 80048; 85025

== ENCOUNTER 2023-11-01 06:44 | Outpatient (REF) | payer MEDICARE, MEDICAID, SELFPAY ==
[2023-11-01 06:30] LABS: MANUAL DIFF FLAG NO
[2023-11-01 06:57] LABS: Basophils Absolute Auto 0.1 X10*3/uL (0.0-0.2); Basophils Percent Auto 0.7 % (0-2); Eosinophils Absolute Auto 0.4 X10*3/uL (0.0-0.4); Eosinophils Percent Auto 6.2 % (0-4); Hematocrit 32.4 % (42.0-52.0); Hemoglobin 10.1 g/dl (14.0-18.0); Imm Gran Abs Auto 0.04 X10*3/uL (0.00-0.03); Imm Gran Pct Auto 0.6 % (0.0-0.4); Lymphocytes Absolute Auto 0.9 X10*3/uL (1.2-4.9); Lymphocytes Percent Auto 13.3 % (20-40); Mean Corpuscular HGB Conc 31.2 g/dl (31.0-36.0); Mean Corpuscular Hemoglobin 30.5 pg (27.0-33.0); Mean Corpuscular Volume 97.9 fL (80.0-98.0); Monocytes Absolute Auto 0.7 X10*3/uL (0.1-1.2); Monocytes Percent Auto 10.5 % (2-11); Neutrophils Absolute Auto 4.8 x10*3/uL (2.0-8.3); Neutrophils Percent Auto 68.7 % (45-73); Platelet Count 168 X10*3/uL (160-400); Red Blood Count 3.31 X10*6/uL (4.60-5.80); Red Cell Distribution Width 16.1 % (11.0-16.0)
[2023-11-01 07:22] LABS: Anion Gap 16 (12-20); Blood Urea Nitrogen 56 mg/dL (9-16); Calcium 9.4 mg/dL (8.4-10.2); Carbon Dioxide 27 mmol/L (22-29); Chloride 97 mmol/L (96-108); Glucose Random 103 mg/dL (60-115); Potassium 4.4 mmol/L (3.3-5.1); Sodium 136 mmol/L (135-145)
[2023-11-01 07:42] LABS: Estimated Glomerular Filt Rate 10
== END 2023-11-01 06:45 | disposition home or self-care (01) ==
LOC: HO.MMNH3L 06:44
PROVIDERS: Visit Provider Family Medicine
DX: I12.0 Hypertensive chronic kidney disease with stage 5 chronic kidney disease or end stage renal disease (principal); E11.22 Type 2 diabetes mellitus with diabetic chronic kidney disease; N18.6 End stage renal disease
CPT/HCPCS: 36415; 80048; 85025

== ENCOUNTER 2023-11-08 06:28 | Outpatient (REF) | payer MEDICARE, MEDICAID, SELFPAY ==
[2023-11-08 06:10] LABS: MANUAL DIFF FLAG NO
[2023-11-08 06:45] LABS: Basophils Percent Auto 0.7 % (0-2); Eosinophils Absolute Auto 0.4 X10*3/uL (0.0-0.4); Eosinophils Percent Auto 10.2 % (0-4); Hematocrit 32.7 % (42.0-52.0); Hemoglobin 10.1 g/dl (14.0-18.0); Imm Gran Abs Auto 0.02 X10*3/uL (0.00-0.03); Imm Gran Pct Auto 0.5 % (0.0-0.4); Lymphocytes Absolute Auto 0.9 X10*3/uL (1.2-4.9); Lymphocytes Percent Auto 20.7 % (20-40); Mean Corpuscular HGB Conc 30.9 g/dl (31.0-36.0); Mean Platelet Volume 10.7 fL (9.4-12.4); Monocytes Absolute Auto 0.5 X10*3/uL (0.1-1.2); Monocytes Percent Auto 11.6 % (2-11); Neutrophils Absolute Auto 2.4 x10*3/uL (2.0-8.3); Neutrophils Percent Auto 56.3 % (45-73); Platelet Count 107 X10*3/uL (160-400); Red Blood Count 3.37 X10*6/uL (4.60-5.80); Red Cell Distribution Width 15.5 % (11.0-16.0); White Blood Count 4.2 X10*3/uL (4.8-10.8)
[2023-11-08 07:25] LABS: Anion Gap 18 (12-20); Blood Urea Nitrogen 53 mg/dL (9-16); Calcium 9.4 mg/dL (8.4-10.2); Carbon Dioxide 29 mmol/L (22-29); Chloride 92 mmol/L (96-108); Glucose Random 95 mg/dL (60-115); Potassium 5.3 mmol/L (3.3-5.1); Sodium 134 mmol/L (135-145)
[2023-11-08 08:13] LABS: Estimated Glomerular Filt Rate 10
== END 2023-11-08 06:29 | disposition home or self-care (01) ==
LOC: HO.MMNH3L 06:28
PROVIDERS: Visit Provider Family Medicine
DX: I12.0 Hypertensive chronic kidney disease with stage 5 chronic kidney disease or end stage renal disease (principal); E11.22 Type 2 diabetes mellitus with diabetic chronic kidney disease; N18.6 End stage renal disease
CPT/HCPCS: 36415; 80048; 85025

== ENCOUNTER 2023-11-15 06:37 | Outpatient (REF) | payer MEDICARE, MEDICAID, SELFPAY ==
[2023-11-15 06:24] LABS: MANUAL DIFF FLAG NO
[2023-11-15 07:07] LABS: Basophils Percent Auto 0.6 % (0-2); Eosinophils Absolute Auto 0.6 X10*3/uL (0.0-0.4); Hematocrit 33.4 % (42.0-52.0); Hemoglobin 10.4 g/dl (14.0-18.0); Imm Gran Abs Auto 0.03 X10*3/uL (0.00-0.03); Imm Gran Pct Auto 0.6 % (0.0-0.4); Lymphocytes Absolute Auto 0.8 X10*3/uL (1.2-4.9); Lymphocytes Percent Auto 15.3 % (20-40); Mean Corpuscular HGB Conc 31.1 g/dl (31.0-36.0); Mean Corpuscular Hemoglobin 29.5 pg (27.0-33.0); Mean Corpuscular Volume 94.9 fL (80.0-98.0); Monocytes Absolute Auto 0.5 X10*3/uL (0.1-1.2); Monocytes Percent Auto 9.2 % (2-11); Neutrophils Absolute Auto 3.2 x10*3/uL (2.0-8.3); Neutrophils Percent Auto 62.3 % (45-73); Platelet Count 100 X10*3/uL (160-400); Red Blood Count 3.52 X10*6/uL (4.60-5.80); Red Cell Distribution Width 15.2 % (11.0-16.0); White Blood Count 5.1 X10*3/uL (4.8-10.8)
[2023-11-15 07:33] LABS: Anion Gap 18 (12-20); Blood Urea Nitrogen 50 mg/dL (9-16); Calcium 9.5 mg/dL (8.4-10.2); Carbon Dioxide 24 mmol/L (22-29); Chloride 98 mmol/L (96-108); Estimated Glomerular Filt Rate 10; Glucose Random 105 mg/dL (60-115); Potassium 4.8 mmol/L (3.3-5.1); Sodium 135 mmol/L (135-145)
== END 2023-11-15 06:38 | disposition home or self-care (01) ==
LOC: HO.MMNH3L 06:37
PROVIDERS: Visit Provider Family Medicine
DX: E11.22 Type 2 diabetes mellitus with diabetic chronic kidney disease (principal); I12.9 Hypertensive chronic kidney disease with stage 1 through stage 4 chronic kidney disease, or unspecified chronic kidney disease; N18.6 End stage renal disease
CPT/HCPCS: 36415; 80048; 85025

== ENCOUNTER 2023-11-22 06:26 | Outpatient (REF) | payer MEDICARE, MEDICAID, SELFPAY ==
[2023-11-22 06:07] LABS: MANUAL DIFF FLAG NO
[2023-11-22 06:46] LABS: Basophils Percent Auto 0.6 % (0-2); Eosinophils Percent Auto 15.6 % (0-4); Hematocrit 35.9 % (42.0-52.0); Hemoglobin 11.5 g/dl (14.0-18.0); Imm Gran Abs Auto 0.02 X10*3/uL (0.00-0.03); Imm Gran Pct Auto 0.3 % (0.0-0.4); Lymphocytes Absolute Auto 0.9 X10*3/uL (1.2-4.9); Lymphocytes Percent Auto 14.2 % (20-40); Mean Corpuscular Volume 93.7 fL (80.0-98.0); Monocytes Absolute Auto 0.5 X10*3/uL (0.1-1.2); Monocytes Percent Auto 7.7 % (2-11); Neutrophils Absolute Auto 3.9 x10*3/uL (2.0-8.3); Neutrophils Percent Auto 61.6 % (45-73); Red Blood Count 3.83 X10*6/uL (4.60-5.80); Red Cell Distribution Width 15.9 % (11.0-16.0); White Blood Count 6.3 X10*3/uL (4.8-10.8)
[2023-11-22 06:47] LABS: Platelet Count 89 X10*3/uL (160-400)
[2023-11-22 07:06] LABS: Anion Gap 21 (12-20); Blood Urea Nitrogen 52 mg/dL (9-16); Calcium 9.5 mg/dL (8.4-10.2); Carbon Dioxide 26 mmol/L (22-29); Chloride 94 mmol/L (96-108); Estimated Glomerular Filt Rate 11; Glucose Random 99 mg/dL (60-115); Potassium 5.7 mmol/L (3.3-5.1); Sodium 135 mmol/L (135-145)
== END 2023-11-22 06:27 | disposition home or self-care (01) ==
LOC: HO.MMNH3L 06:26
PROVIDERS: Visit Provider Family Medicine
DX: E11.22 Type 2 diabetes mellitus with diabetic chronic kidney disease (principal); I12.0 Hypertensive chronic kidney disease with stage 5 chronic kidney disease or end stage renal disease; N18.6 End stage renal disease
CPT/HCPCS: 36415; 80048; 85025

== ENCOUNTER 2023-11-29 06:51 | Outpatient (REF) | payer MEDICARE, MEDICAID, SELFPAY ==
[2023-11-29 06:10] LABS: MANUAL DIFF FLAG NO
[2023-11-29 07:15] LABS: Basophils Percent Auto 0.5 % (0-2); Eosinophils Absolute Auto 1.1 X10*3/uL (0.0-0.4); Eosinophils Percent Auto 17.9 % (0-4); Hematocrit 34.5 % (42.0-52.0); Imm Gran Abs Auto 0.02 X10*3/uL (0.00-0.03); Imm Gran Pct Auto 0.3 % (0.0-0.4); Lymphocytes Absolute Auto 0.9 X10*3/uL (1.2-4.9); Mean Corpuscular HGB Conc 31.9 g/dl (31.0-36.0); Mean Corpuscular Hemoglobin 29.9 pg (27.0-33.0); Mean Corpuscular Volume 93.8 fL (80.0-98.0); Mean Platelet Volume 10.9 fL (9.4-12.4); Monocytes Absolute Auto 0.6 X10*3/uL (0.1-1.2); Monocytes Percent Auto 9.2 % (2-11); Neutrophils Absolute Auto 3.4 x10*3/uL (2.0-8.3); Neutrophils Percent Auto 57.1 % (45-73); Platelet Count 114 X10*3/uL (160-400); Red Blood Count 3.68 X10*6/uL (4.60-5.80); Red Cell Distribution Width 15.5 % (11.0-16.0)
[2023-11-29 07:38] LABS: Anion Gap 17 (12-20); Blood Urea Nitrogen 62 mg/dL (9-16); Calcium 9.6 mg/dL (8.4-10.2); Carbon Dioxide 26 mmol/L (22-29); Chloride 97 mmol/L (96-108); Glucose Random 76 mg/dL (60-115); Potassium 4.8 mmol/L (3.3-5.1); Sodium 135 mmol/L (135-145)
[2023-11-29 08:05] LABS: Estimated Glomerular Filt Rate 10
== END 2023-11-29 06:52 | disposition home or self-care (01) ==
LOC: HO.MMNH3L 06:51
PROVIDERS: Visit Provider Family Medicine
DX: I12.0 Hypertensive chronic kidney disease with stage 5 chronic kidney disease or end stage renal disease (principal); E11.22 Type 2 diabetes mellitus with diabetic chronic kidney disease; N18.6 End stage renal disease
CPT/HCPCS: 36415; 80048; 85025

== ENCOUNTER 2023-12-06 05:51 | Outpatient (REF) | payer MEDICARE, MEDICAID, SELFPAY ==
[2023-12-06 05:47] LABS: MANUAL DIFF FLAG NO
[2023-12-06 06:50] LABS: Basophils Percent Auto 0.6 % (0-2); Eosinophils Absolute Auto 1.3 X10*3/uL (0.0-0.4); Eosinophils Percent Auto 18.6 % (0-4); Hematocrit 38.2 % (42.0-52.0); Hemoglobin 12.3 g/dl (14.0-18.0); Imm Gran Abs Auto 0.04 X10*3/uL (0.00-0.03); Imm Gran Pct Auto 0.6 % (0.0-0.4); Lymphocytes Absolute Auto 0.9 X10*3/uL (1.2-4.9); Lymphocytes Percent Auto 13.3 % (20-40); Mean Corpuscular HGB Conc 32.2 g/dl (31.0-36.0); Mean Corpuscular Hemoglobin 29.6 pg (27.0-33.0); Mean Platelet Volume 10.8 fL (9.4-12.4); Monocytes Absolute Auto 0.5 X10*3/uL (0.1-1.2); Monocytes Percent Auto 6.9 % (2-11); Neutrophils Absolute Auto 4.1 x10*3/uL (2.0-8.3); Platelet Count 105 X10*3/uL (160-400); Red Blood Count 4.15 X10*6/uL (4.60-5.80); Red Cell Distribution Width 15.6 % (11.0-16.0); White Blood Count 6.8 X10*3/uL (4.8-10.8)
[2023-12-06 07:51] LABS: Anion Gap 23 (12-20); Blood Urea Nitrogen 78 mg/dL (9-16); Calcium 9.5 mg/dL (8.4-10.2); Carbon Dioxide 20 mmol/L (22-29); Chloride 95 mmol/L (96-108); Estimated Glomerular Filt Rate 7; Glucose Random 59 mg/dL (60-115); Potassium 6.6 mmol/L (3.3-5.1); Sodium 131 mmol/L (135-145)
== END 2023-12-06 05:52 | disposition home or self-care (01) ==
LOC: HO.MMNH3L 05:51
PROVIDERS: Visit Provider Family Medicine
DX: N18.6 End stage renal disease (principal); E11.22 Type 2 diabetes mellitus with diabetic chronic kidney disease; I12.9 Hypertensive chronic kidney disease with stage 1 through stage 4 chronic kidney disease, or unspecified chronic kidney disease
CPT/HCPCS: 36415; 80048; 85025

== ENCOUNTER 2023-12-13 06:01 | Outpatient (REF) | payer MEDICARE, MEDICAID, SELFPAY ==
[2023-12-13 05:53] LABS: MANUAL DIFF FLAG NO
[2023-12-13 06:39] LABS: Basophils Percent Auto 0.6 % (0-2); Eosinophils Absolute Auto 1.2 X10*3/uL (0.0-0.4); Eosinophils Percent Auto 18.6 % (0-4); Hematocrit 38.5 % (42.0-52.0); Hemoglobin 12.3 g/dl (14.0-18.0); Imm Gran Abs Auto 0.05 X10*3/uL (0.00-0.03); Imm Gran Pct Auto 0.8 % (0.0-0.4); Lymphocytes Absolute Auto 0.8 X10*3/uL (1.2-4.9); Lymphocytes Percent Auto 12.1 % (20-40); Mean Corpuscular HGB Conc 31.9 g/dl (31.0-36.0); Mean Corpuscular Hemoglobin 29.6 pg (27.0-33.0); Mean Corpuscular Volume 92.8 fL (80.0-98.0); Mean Platelet Volume 9.5 fL (9.4-12.4); Monocytes Absolute Auto 0.5 X10*3/uL (0.1-1.2); Monocytes Percent Auto 7.7 % (2-11); Neutrophils Percent Auto 60.2 % (45-73); Red Blood Count 4.15 X10*6/uL (4.60-5.80); Red Cell Distribution Width 15.8 % (11.0-16.0); White Blood Count 6.6 X10*3/uL (4.8-10.8)
[2023-12-13 06:40] LABS: Platelet Count 92 X10*3/uL (160-400)
[2023-12-13 07:08] LABS: Anion Gap 17 (12-20); Blood Urea Nitrogen 61 mg/dL (9-16); Calcium 9.7 mg/dL (8.4-10.2); Carbon Dioxide 26 mmol/L (22-29); Chloride 95 mmol/L (96-108); Estimated Glomerular Filt Rate 9; Glucose Random 174 mg/dL (60-115); Potassium 5.1 mmol/L (3.3-5.1); Sodium 133 mmol/L (135-145)
== END 2023-12-13 06:02 | disposition home or self-care (01) ==
LOC: HO.MMNH3L 06:01
PROVIDERS: Visit Provider Family Medicine
DX: I12.0 Hypertensive chronic kidney disease with stage 5 chronic kidney disease or end stage renal disease (principal); E11.22 Type 2 diabetes mellitus with diabetic chronic kidney disease; N18.6 End stage renal disease
CPT/HCPCS: 36415; 80048; 85025

== ENCOUNTER 2023-12-20 06:18 | Outpatient (REF) | payer MEDICARE, MEDICAID, SELFPAY ==
[2023-12-20 06:07] LABS: Hemoglobin 12.5 g/dl (14.0-18.0); Imm Gran Abs Auto 0.03 X10*3/uL (0.00-0.03); Imm Gran Pct Auto 0.4 % (0.0-0.4); PLT CLUMP 1; SCAN SMEAR FLAG 1
[2023-12-20 06:09] LABS: Basophils Percent Auto 0.4 % (0-2); Eosinophils Percent Auto 13.5 % (0-4); Hematocrit 39.7 % (42.0-52.0); Lymphocytes Absolute Auto 1.1 X10*3/uL (1.2-4.9); Lymphocytes Percent Auto 15.5 % (20-40); Mean Corpuscular HGB Conc 31.5 g/dl (31.0-36.0); Mean Corpuscular Hemoglobin 29.8 pg (27.0-33.0); Mean Corpuscular Volume 94.5 fL (80.0-98.0); Mean Platelet Volume 10.7 fL (9.4-12.4); Monocytes Absolute Auto 0.6 X10*3/uL (0.1-1.2); Monocytes Percent Auto 7.8 % (2-11); Neutrophils Absolute Auto 4.6 x10*3/uL (2.0-8.3); Neutrophils Percent Auto 62.4 % (45-73)
[2023-12-20 06:10] LABS: MANUAL DIFF FLAG NO; Platelet Count 79 X10*3/uL (160-400); White Blood Count 7.3 X10*3/uL (4.8-10.8)
[2023-12-20 07:11] LABS: Anion Gap 18 (12-20); Blood Urea Nitrogen 64 mg/dL (9-16); Calcium 9.6 mg/dL (8.4-10.2); Carbon Dioxide 28 mmol/L (22-29); Chloride 96 mmol/L (96-108); Potassium 5.6 mmol/L (3.3-5.1); Sodium 136 mmol/L (135-145)
[2023-12-20 07:18] LABS: Estimated Glomerular Filt Rate 10; Glucose Random 54 mg/dL (60-115)
== END 2023-12-20 06:19 | disposition home or self-care (01) ==
LOC: HO.MMNH3L 06:18
PROVIDERS: Visit Provider Family Medicine
DX: E11.22 Type 2 diabetes mellitus with diabetic chronic kidney disease (principal); N18.6 End stage renal disease
CPT/HCPCS: 36415; 80048; 85025

== ENCOUNTER 2023-12-27 06:37 | Outpatient (REF) | payer MEDICARE, MEDICAID, SELFPAY ==
[2023-12-27 06:01] LABS: MANUAL DIFF FLAG NO
[2023-12-27 06:40] LABS: Basophils Percent Auto 0.7 % (0-2); Eosinophils Absolute Auto 0.7 X10*3/uL (0.0-0.4); Eosinophils Percent Auto 12.5 % (0-4); Hematocrit 39.4 % (42.0-52.0); Hemoglobin 12.3 g/dl (14.0-18.0); Imm Gran Abs Auto 0.03 X10*3/uL (0.00-0.03); Imm Gran Pct Auto 0.5 % (0.0-0.4); Lymphocytes Absolute Auto 0.7 X10*3/uL (1.2-4.9); Lymphocytes Percent Auto 12.9 % (20-40); Mean Corpuscular HGB Conc 31.2 g/dl (31.0-36.0); Mean Corpuscular Hemoglobin 29.9 pg (27.0-33.0); Mean Corpuscular Volume 95.6 fL (80.0-98.0); Monocytes Absolute Auto 0.5 X10*3/uL (0.1-1.2); Monocytes Percent Auto 9.3 % (2-11); Neutrophils Absolute Auto 3.6 x10*3/uL (2.0-8.3); Neutrophils Percent Auto 64.1 % (45-73); Platelet Count 82 X10*3/uL (160-400); Red Blood Count 4.12 X10*6/uL (4.60-5.80); Red Cell Distribution Width 16.1 % (11.0-16.0); White Blood Count 5.7 X10*3/uL (4.8-10.8)
[2023-12-27 06:58] LABS: Anion Gap 17 (12-20); Blood Urea Nitrogen 47 mg/dL (9-16); Calcium 9.6 mg/dL (8.4-10.2); Carbon Dioxide 32 mmol/L (22-29); Chloride 94 mmol/L (96-108); Estimated Glomerular Filt Rate 10; Glucose Random 210 mg/dL (60-115); Potassium 4.5 mmol/L (3.3-5.1); Sodium 138 mmol/L (135-145)
== END 2023-12-27 06:38 | disposition home or self-care (01) ==
LOC: HO.MMNH3L 06:37
PROVIDERS: Visit Provider Family Medicine
DX: I12.0 Hypertensive chronic kidney disease with stage 5 chronic kidney disease or end stage renal disease (principal); E11.22 Type 2 diabetes mellitus with diabetic chronic kidney disease; N18.6 End stage renal disease
CPT/HCPCS: 36415; 80048; 85025

== ENCOUNTER 2024-01-03 07:18 | Outpatient (REF) | payer MEDICARE, MEDICAID, SELFPAY ==
[2024-01-03 06:34] LABS: MANUAL DIFF FLAG NO
[2024-01-03 07:15] LABS: Basophils Percent Auto 0.4 % (0-2); Eosinophils Absolute Auto 0.6 X10*3/uL (0.0-0.4); Eosinophils Percent Auto 11.3 % (0-4); Hemoglobin 12.4 g/dl (14.0-18.0); Imm Gran Abs Auto 0.03 X10*3/uL (0.00-0.03); Imm Gran Pct Auto 0.5 % (0.0-0.4); Lymphocytes Absolute Auto 0.7 X10*3/uL (1.2-4.9); Lymphocytes Percent Auto 12.8 % (20-40); Mean Corpuscular HGB Conc 31.8 g/dl (31.0-36.0); Mean Corpuscular Hemoglobin 29.7 pg (27.0-33.0); Mean Corpuscular Volume 93.5 fL (80.0-98.0); Mean Platelet Volume 10.3 fL (9.4-12.4); Monocytes Absolute Auto 0.5 X10*3/uL (0.1-1.2); Monocytes Percent Auto 8.5 % (2-11); Neutrophils Absolute Auto 3.7 x10*3/uL (2.0-8.3); Neutrophils Percent Auto 66.5 % (45-73); Red Blood Count 4.17 X10*6/uL (4.60-5.80); Red Cell Distribution Width 15.9 % (11.0-16.0); White Blood Count 5.6 X10*3/uL (4.8-10.8)
[2024-01-03 07:18] LABS: Platelet Count 98 X10*3/uL (160-400)
[2024-01-03 08:03] LABS: Anion Gap 20 (12-20); Blood Urea Nitrogen 53 mg/dL (9-16); Calcium 9.3 mg/dL (8.4-10.2); Carbon Dioxide 25 mmol/L (22-29); Chloride 95 mmol/L (96-108); Glucose Random 136 mg/dL (60-115); Potassium 4.7 mmol/L (3.3-5.1); Sodium 135 mmol/L (135-145)
[2024-01-03 08:19] LABS: Estimated Glomerular Filt Rate 10
== END 2024-01-03 07:19 | disposition home or self-care (01) ==
LOC: HO.MMNH3L 07:18
PROVIDERS: Visit Provider Family Medicine
DX: I12.0 Hypertensive chronic kidney disease with stage 5 chronic kidney disease or end stage renal disease (principal); E11.22 Type 2 diabetes mellitus with diabetic chronic kidney disease; N18.6 End stage renal disease
CPT/HCPCS: 36415; 80048; 85025

== ENCOUNTER 2024-01-10 06:11 | Outpatient (REF) | payer MEDICARE, MEDICAID, SELFPAY ==
[2024-01-10 06:03] LABS: MANUAL DIFF FLAG NO
[2024-01-10 07:05] LABS: Basophils Percent Auto 0.6 % (0-2); Eosinophils Absolute Auto 0.5 X10*3/uL (0.0-0.4); Eosinophils Percent Auto 9.6 % (0-4); Hematocrit 38.1 % (42.0-52.0); Hemoglobin 12.1 g/dl (14.0-18.0); Imm Gran Abs Auto 0.03 X10*3/uL (0.00-0.03); Imm Gran Pct Auto 0.6 % (0.0-0.4); Lymphocytes Absolute Auto 0.6 X10*3/uL (1.2-4.9); Lymphocytes Percent Auto 11.7 % (20-40); Mean Corpuscular HGB Conc 31.8 g/dl (31.0-36.0); Mean Corpuscular Hemoglobin 30.3 pg (27.0-33.0); Mean Corpuscular Volume 95.3 fL (80.0-98.0); Mean Platelet Volume 10.5 fL (9.4-12.4); Monocytes Absolute Auto 0.5 X10*3/uL (0.1-1.2); Monocytes Percent Auto 9.6 % (2-11); Neutrophils Absolute Auto 3.6 x10*3/uL (2.0-8.3); Neutrophils Percent Auto 67.9 % (45-73); Platelet Count 87 X10*3/uL (160-400); Red Cell Distribution Width 15.9 % (11.0-16.0); White Blood Count 5.2 X10*3/uL (4.8-10.8)
[2024-01-10 08:01] LABS: Anion Gap 20 (12-20); Blood Urea Nitrogen 62 mg/dL (9-16); Calcium 9.1 mg/dL (8.4-10.2); Carbon Dioxide 22 mmol/L (22-29); Chloride 97 mmol/L (96-108); Glucose Random 215 mg/dL (60-115); Potassium 4.7 mmol/L (3.3-5.1); Sodium 134 mmol/L (135-145)
[2024-01-10 08:22] LABS: Estimated Glomerular Filt Rate 10
== END 2024-01-10 06:12 | disposition home or self-care (01) ==
LOC: HO.MMNH3L 06:11
PROVIDERS: Visit Provider Family Medicine
DX: I12.0 Hypertensive chronic kidney disease with stage 5 chronic kidney disease or end stage renal disease (principal); E11.22 Type 2 diabetes mellitus with diabetic chronic kidney disease; N18.6 End stage renal disease
CPT/HCPCS: 36415; 80048; 85025

== ENCOUNTER 2024-01-17 06:33 | Outpatient (REF) | payer MEDICARE, MEDICAID, SELFPAY ==
[2024-01-17 05:55] LABS: MANUAL DIFF FLAG NO
[2024-01-17 06:26] LABS: Basophils Percent Auto 0.7 % (0-2); Eosinophils Absolute Auto 0.6 X10*3/uL (0.0-0.4); Eosinophils Percent Auto 9.8 % (0-4); Hematocrit 39.2 % (42.0-52.0); Hemoglobin 12.5 g/dl (14.0-18.0); Imm Gran Abs Auto 0.03 X10*3/uL (0.00-0.03); Imm Gran Pct Auto 0.5 % (0.0-0.4); Lymphocytes Absolute Auto 0.8 X10*3/uL (1.2-4.9); Lymphocytes Percent Auto 13.4 % (20-40); Mean Corpuscular HGB Conc 31.9 g/dl (31.0-36.0); Mean Corpuscular Hemoglobin 29.9 pg (27.0-33.0); Mean Corpuscular Volume 93.8 fL (80.0-98.0); Mean Platelet Volume 11.1 fL (9.4-12.4); Monocytes Absolute Auto 0.5 X10*3/uL (0.1-1.2); Monocytes Percent Auto 8.1 % (2-11); Neutrophils Percent Auto 67.5 % (45-73); Red Blood Count 4.18 X10*6/uL (4.60-5.80); White Blood Count 5.9 X10*3/uL (4.8-10.8)
[2024-01-17 06:29] LABS: Platelet Count 93 X10*3/uL (160-400)
[2024-01-17 06:49] LABS: Anion Gap 20 (12-20); Blood Urea Nitrogen 61 mg/dL (9-16); Carbon Dioxide 27 mmol/L (22-29); Chloride 95 mmol/L (96-108); Estimated Glomerular Filt Rate 10; Glucose Random 104 mg/dL (60-115); Potassium 4.6 mmol/L (3.3-5.1); Sodium 137 mmol/L (135-145)
== END 2024-01-17 06:34 | disposition home or self-care (01) ==
LOC: HO.MMNH3L 06:33
PROVIDERS: Visit Provider Family Medicine
DX: I12.0 Hypertensive chronic kidney disease with stage 5 chronic kidney disease or end stage renal disease (principal); E11.22 Type 2 diabetes mellitus with diabetic chronic kidney disease; N18.6 End stage renal disease
CPT/HCPCS: 36415; 80048; 85025

== ENCOUNTER 2024-01-24 06:05 | Outpatient (REF) | payer MEDICARE, MEDICAID, SELFPAY ==
[2024-01-24 05:59] LABS: MANUAL DIFF FLAG NO
[2024-01-24 07:00] LABS: Basophils Percent Auto 0.6 % (0-2); Eosinophils Absolute Auto 0.6 X10*3/uL (0.0-0.4); Hematocrit 40.6 % (42.0-52.0); Hemoglobin 12.8 g/dl (14.0-18.0); Imm Gran Abs Auto 0.03 X10*3/uL (0.00-0.03); Imm Gran Pct Auto 0.5 % (0.0-0.4); Lymphocytes Absolute Auto 0.8 X10*3/uL (1.2-4.9); Lymphocytes Percent Auto 11.3 % (20-40); Mean Corpuscular HGB Conc 31.5 g/dl (31.0-36.0); Mean Corpuscular Hemoglobin 29.9 pg (27.0-33.0); Mean Corpuscular Volume 94.9 fL (80.0-98.0); Mean Platelet Volume 10.7 fL (9.4-12.4); Monocytes Absolute Auto 0.5 X10*3/uL (0.1-1.2); Monocytes Percent Auto 7.7 % (2-11); Neutrophils Absolute Auto 4.7 x10*3/uL (2.0-8.3); Neutrophils Percent Auto 70.9 % (45-73); Platelet Count 86 X10*3/uL (160-400); Red Blood Count 4.28 X10*6/uL (4.60-5.80); Red Cell Distribution Width 15.9 % (11.0-16.0); White Blood Count 6.6 X10*3/uL (4.8-10.8)
[2024-01-24 07:41] LABS: Anion Gap 19 (12-20); Blood Urea Nitrogen 81 mg/dL (9-16); Calcium 9.2 mg/dL (8.4-10.2); Carbon Dioxide 27 mmol/L (22-29); Chloride 94 mmol/L (96-108); Glucose Random 100 mg/dL (60-115); Potassium 5.5 mmol/L (3.3-5.1); Sodium 134 mmol/L (135-145)
[2024-01-24 07:52] LABS: Estimated Glomerular Filt Rate 7
== END 2024-01-24 06:06 | disposition home or self-care (01) ==
LOC: HO.MMNH3L 06:05
PROVIDERS: Visit Provider Family Medicine
DX: I12.0 Hypertensive chronic kidney disease with stage 5 chronic kidney disease or end stage renal disease (principal); E11.22 Type 2 diabetes mellitus with diabetic chronic kidney disease; N18.6 End stage renal disease
CPT/HCPCS: 36415; 80048; 85025

== ENCOUNTER 2024-01-31 05:45 | Outpatient (REF) | payer MEDICARE, MEDICAID, SELFPAY ==
[2024-01-31 05:58] LABS: Basophils Percent Auto 0.5 % (0-2); Hemoglobin 13.6 g/dl (14.0-18.0); PLT CLUMP 1; SCAN SMEAR FLAG 1
[2024-01-31 06:01] LABS: Eosinophils Absolute Auto 0.6 X10*3/uL (0.0-0.4); Eosinophils Percent Auto 8.6 % (0-4); Hematocrit 42.7 % (42.0-52.0); Imm Gran Abs Auto 0.04 X10*3/uL (0.00-0.03); Imm Gran Pct Auto 0.6 % (0.0-0.4); Lymphocytes Absolute Auto 0.8 X10*3/uL (1.2-4.9); Lymphocytes Percent Auto 12.1 % (20-40); Mean Corpuscular HGB Conc 31.9 g/dl (31.0-36.0); Mean Corpuscular Hemoglobin 30.3 pg (27.0-33.0); Mean Corpuscular Volume 95.1 fL (80.0-98.0); Mean Platelet Volume 10.5 fL (9.4-12.4); Monocytes Absolute Auto 0.5 X10*3/uL (0.1-1.2); Monocytes Percent Auto 7.5 % (2-11); Neutrophils Absolute Auto 4.6 x10*3/uL (2.0-8.3); Neutrophils Percent Auto 70.7 % (45-73); Platelet Count 93 X10*3/uL (160-400); Red Blood Count 4.49 X10*6/uL (4.60-5.80); Red Cell Distribution Width 15.4 % (11.0-16.0); White Blood Count 6.5 X10*3/uL (4.8-10.8)
[2024-01-31 06:02] LABS: MANUAL DIFF FLAG NO
[2024-01-31 06:48] LABS: Anion Gap 18 (12-20); Blood Urea Nitrogen 68 mg/dL (9-16); Calcium 9.9 mg/dL (8.4-10.2); Carbon Dioxide 30 mmol/L (22-29); Chloride 93 mmol/L (96-108); Estimated Glomerular Filt Rate 9; Glucose Random 116 mg/dL (60-115); Potassium 5.1 mmol/L (3.3-5.1); Sodium 136 mmol/L (135-145)
== END 2024-01-31 05:46 | disposition home or self-care (01) ==
LOC: HO.MMNH3L 05:45
PROVIDERS: Visit Provider Family Medicine
DX: I12.0 Hypertensive chronic kidney disease with stage 5 chronic kidney disease or end stage renal disease (principal); E11.22 Type 2 diabetes mellitus with diabetic chronic kidney disease; N18.6 End stage renal disease
CPT/HCPCS: 36415; 80048; 85025

== ENCOUNTER 2024-02-07 06:05 | Outpatient (REF) | payer MEDICARE, MEDICAID, SELFPAY ==
[2024-02-07 05:45] LABS: MANUAL DIFF FLAG NO
[2024-02-07 06:24] LABS: Basophils Percent Auto 0.6 % (0-2); Eosinophils Absolute Auto 0.7 X10*3/uL (0.0-0.4); Eosinophils Percent Auto 10.1 % (0-4); Hematocrit 39.3 % (42.0-52.0); Hemoglobin 12.5 g/dl (14.0-18.0); Imm Gran Abs Auto 0.04 X10*3/uL (0.00-0.03); Imm Gran Pct Auto 0.6 % (0.0-0.4); Lymphocytes Absolute Auto 0.7 X10*3/uL (1.2-4.9); Lymphocytes Percent Auto 10.6 % (20-40); Mean Corpuscular HGB Conc 31.8 g/dl (31.0-36.0); Mean Corpuscular Hemoglobin 30.4 pg (27.0-33.0); Mean Corpuscular Volume 95.6 fL (80.0-98.0); Mean Platelet Volume 10.5 fL (9.4-12.4); Monocytes Absolute Auto 0.5 X10*3/uL (0.1-1.2); Monocytes Percent Auto 8.3 % (2-11); Neutrophils Absolute Auto 4.6 x10*3/uL (2.0-8.3); Neutrophils Percent Auto 69.8 % (45-73); Red Blood Count 4.11 X10*6/uL (4.60-5.80); Red Cell Distribution Width 15.8 % (11.0-16.0); White Blood Count 6.5 X10*3/uL (4.8-10.8)
[2024-02-07 06:26] LABS: Platelet Count 92 X10*3/uL (160-400)
[2024-02-07 06:49] LABS: Anion Gap 16 (12-20); Blood Urea Nitrogen 49 mg/dL (9-16); Calcium 9.6 mg/dL (8.4-10.2); Carbon Dioxide 27 mmol/L (22-29); Chloride 98 mmol/L (96-108); Estimated Glomerular Filt Rate 13; Glucose Random 85 mg/dL (60-115); Potassium 4.4 mmol/L (3.3-5.1); Sodium 137 mmol/L (135-145)
== END 2024-02-07 06:06 | disposition home or self-care (01) ==
LOC: HO.MMNH3L 06:05
PROVIDERS: Visit Provider Family Medicine
DX: I12.0 Hypertensive chronic kidney disease with stage 5 chronic kidney disease or end stage renal disease (principal); E11.22 Type 2 diabetes mellitus with diabetic chronic kidney disease; N18.6 End stage renal disease
CPT/HCPCS: 36415; 80048; 85025

== ENCOUNTER 2024-02-14 05:56 | Outpatient (REF) | payer MEDICARE, MEDICAID, SELFPAY ==
[2024-02-14 06:34] LABS: Imm Gran Abs Auto 0.04 X10*3/uL (0.00-0.03); Imm Gran Pct Auto 0.7 % (0.0-0.4); Red Cell Distribution Width 15.9 % (11.0-16.0)
[2024-02-14 06:36] LABS: Basophils Percent Auto 0.5 % (0-2); Eosinophils Absolute Auto 0.6 X10*3/uL (0.0-0.4); Eosinophils Percent Auto 9.9 % (0-4); Hematocrit 39.5 % (42.0-52.0); Hemoglobin 12.6 g/dl (14.0-18.0); Lymphocytes Absolute Auto 0.8 X10*3/uL (1.2-4.9); Lymphocytes Percent Auto 12.6 % (20-40); Mean Corpuscular HGB Conc 31.9 g/dl (31.0-36.0); Mean Corpuscular Hemoglobin 30.7 pg (27.0-33.0); Mean Corpuscular Volume 96.1 fL (80.0-98.0); Mean Platelet Volume 10.7 fL (9.4-12.4); Monocytes Absolute Auto 0.5 X10*3/uL (0.1-1.2); Neutrophils Absolute Auto 4.1 x10*3/uL (2.0-8.3); Neutrophils Percent Auto 68.3 % (45-73); Red Blood Count 4.11 X10*6/uL (4.60-5.80)
[2024-02-14 06:41] LABS: Platelet Count 87 X10*3/uL (160-400)
[2024-02-14 07:19] LABS: Anion Gap 19 (12-20); Blood Urea Nitrogen 48 mg/dL (9-16); Calcium 9.3 mg/dL (8.4-10.2); Carbon Dioxide 25 mmol/L (22-29); Chloride 94 mmol/L (96-108); Estimated Glomerular Filt Rate 11; Glucose Random 115 mg/dL (60-115); Potassium 4.3 mmol/L (3.3-5.1); Sodium 134 mmol/L (135-145)
== END 2024-02-14 05:57 | disposition home or self-care (01) ==
LOC: HO.MMNH3L 05:56
PROVIDERS: Visit Provider Family Medicine
DX: I12.0 Hypertensive chronic kidney disease with stage 5 chronic kidney disease or end stage renal disease (principal); E11.22 Type 2 diabetes mellitus with diabetic chronic kidney disease; N18.6 End stage renal disease
CPT/HCPCS: 36415; 80048; 85025

== ENCOUNTER 2024-02-21 06:36 | Outpatient (REF) | payer MEDICARE, MEDICAID, SELFPAY ==
[2024-02-21 06:18] LABS: MANUAL DIFF FLAG NO
[2024-02-21 07:24] LABS: Basophils Absolute Auto 0.1 X10*3/uL (0.0-0.2); Basophils Percent Auto 0.8 % (0-2); Eosinophils Absolute Auto 0.6 X10*3/uL (0.0-0.4); Eosinophils Percent Auto 10.7 % (0-4); Hematocrit 39.4 % (42.0-52.0); Hemoglobin 12.5 g/dl (14.0-18.0); Imm Gran Abs Auto 0.04 X10*3/uL (0.00-0.03); Imm Gran Pct Auto 0.7 % (0.0-0.4); Lymphocytes Absolute Auto 0.7 X10*3/uL (1.2-4.9); Lymphocytes Percent Auto 11.5 % (20-40); Mean Corpuscular HGB Conc 31.7 g/dl (31.0-36.0); Mean Corpuscular Hemoglobin 30.6 pg (27.0-33.0); Mean Corpuscular Volume 96.6 fL (80.0-98.0); Mean Platelet Volume 10.2 fL (9.4-12.4); Monocytes Absolute Auto 0.5 X10*3/uL (0.1-1.2); Monocytes Percent Auto 7.8 % (2-11); Neutrophils Percent Auto 68.5 % (45-73); Red Blood Count 4.08 X10*6/uL (4.60-5.80); Red Cell Distribution Width 15.9 % (11.0-16.0); White Blood Count 5.9 X10*3/uL (4.8-10.8)
[2024-02-21 07:25] LABS: Platelet Count 89 X10*3/uL (160-400)
[2024-02-21 07:30] LABS: Anion Gap 21 (12-20); Blood Urea Nitrogen 80 mg/dL (9-16); Calcium 9.9 mg/dL (8.4-10.2); Carbon Dioxide 24 mmol/L (22-29); Chloride 97 mmol/L (96-108); Glucose Random 132 mg/dL (60-115); Potassium 5.4 mmol/L (3.3-5.1); Sodium 137 mmol/L (135-145)
[2024-02-21 08:34] LABS: Estimated Glomerular Filt Rate 8
== END 2024-02-21 06:37 | disposition home or self-care (01) ==
LOC: HO.MMNH3L 06:36
PROVIDERS: Visit Provider Family Medicine
DX: I12.0 Hypertensive chronic kidney disease with stage 5 chronic kidney disease or end stage renal disease (principal); E11.22 Type 2 diabetes mellitus with diabetic chronic kidney disease; N18.6 End stage renal disease
CPT/HCPCS: 36415; 80048; 85025

== ENCOUNTER 2024-02-28 06:50 | Outpatient (REF) | payer MEDICARE, MEDICAID, SELFPAY ==
[2024-02-28 06:07] LABS: MANUAL DIFF FLAG NO
[2024-02-28 06:57] LABS: Basophils Percent Auto 0.5 % (0-2); Eosinophils Absolute Auto 0.6 X10*3/uL (0.0-0.4); Eosinophils Percent Auto 10.3 % (0-4); Hematocrit 38.3 % (42.0-52.0); Hemoglobin 12.2 g/dl (14.0-18.0); Imm Gran Abs Auto 0.04 X10*3/uL (0.00-0.03); Imm Gran Pct Auto 0.7 % (0.0-0.4); Lymphocytes Absolute Auto 0.8 X10*3/uL (1.2-4.9); Lymphocytes Percent Auto 13.5 % (20-40); Mean Corpuscular HGB Conc 31.9 g/dl (31.0-36.0); Mean Corpuscular Volume 97.2 fL (80.0-98.0); Mean Platelet Volume 10.6 fL (9.4-12.4); Monocytes Absolute Auto 0.4 X10*3/uL (0.1-1.2); Monocytes Percent Auto 6.7 % (2-11); Neutrophils Absolute Auto 3.8 x10*3/uL (2.0-8.3); Neutrophils Percent Auto 68.3 % (45-73); Red Blood Count 3.94 X10*6/uL (4.60-5.80); Red Cell Distribution Width 15.9 % (11.0-16.0); White Blood Count 5.5 X10*3/uL (4.8-10.8)
[2024-02-28 07:17] LABS: Platelet Count 82 X10*3/uL (160-400)
[2024-02-28 07:29] LABS: Anion Gap 22 (12-20); Blood Urea Nitrogen 65 mg/dL (9-16); Calcium 9.5 mg/dL (8.4-10.2); Carbon Dioxide 26 mmol/L (22-29); Chloride 94 mmol/L (96-108); Estimated Glomerular Filt Rate 11; Glucose Random 215 mg/dL (60-115); Potassium 4.7 mmol/L (3.3-5.1); Sodium 137 mmol/L (135-145)
== END 2024-02-28 06:51 | disposition home or self-care (01) ==
LOC: HO.MMNH3L 06:50
PROVIDERS: Visit Provider Family Medicine
DX: I12.9 Hypertensive chronic kidney disease with stage 1 through stage 4 chronic kidney disease, or unspecified chronic kidney disease (principal); E11.22 Type 2 diabetes mellitus with diabetic chronic kidney disease; N18.6 End stage renal disease
CPT/HCPCS: 36415; 80048; 85025

== ENCOUNTER 2024-03-06 05:56 | Outpatient (REF) | payer MEDICARE, MEDICAID, SELFPAY ==
[2024-03-06 05:46] LABS: MANUAL DIFF FLAG NO
[2024-03-06 06:16] LABS: Basophils Percent Auto 0.6 % (0-2); Eosinophils Absolute Auto 0.7 X10*3/uL (0.0-0.4); Eosinophils Percent Auto 10.2 % (0-4); Hematocrit 39.4 % (42.0-52.0); Hemoglobin 12.6 g/dl (14.0-18.0); Imm Gran Abs Auto 0.04 X10*3/uL (0.00-0.03); Imm Gran Pct Auto 0.6 % (0.0-0.4); Lymphocytes Absolute Auto 0.7 X10*3/uL (1.2-4.9); Lymphocytes Percent Auto 11.1 % (20-40); Monocytes Absolute Auto 0.5 X10*3/uL (0.1-1.2); Monocytes Percent Auto 8.1 % (2-11); Neutrophils Absolute Auto 4.6 x10*3/uL (2.0-8.3); Neutrophils Percent Auto 69.4 % (45-73); Platelet Count 97 X10*3/uL (160-400); Red Blood Count 4.06 X10*6/uL (4.60-5.80); Red Cell Distribution Width 15.8 % (11.0-16.0); White Blood Count 6.7 X10*3/uL (4.8-10.8)
[2024-03-06 06:39] LABS: Anion Gap 18 (12-20); Blood Urea Nitrogen 50 mg/dL (9-16); Calcium 9.4 mg/dL (8.4-10.2); Carbon Dioxide 25 mmol/L (22-29); Chloride 94 mmol/L (96-108); Estimated Glomerular Filt Rate 11; Glucose Random 172 mg/dL (60-115); Potassium 4.1 mmol/L (3.3-5.1); Sodium 133 mmol/L (135-145)
== END 2024-03-06 05:57 | disposition home or self-care (01) ==
LOC: HO.MMNH3L 05:56
PROVIDERS: Visit Provider Family Medicine
DX: I12.0 Hypertensive chronic kidney disease with stage 5 chronic kidney disease or end stage renal disease (principal); E11.22 Type 2 diabetes mellitus with diabetic chronic kidney disease; N18.6 End stage renal disease
CPT/HCPCS: 36415; 80048; 85025

== ENCOUNTER 2024-03-20 05:56 | Outpatient (REF) | payer MEDICARE, MEDICAID, SELFPAY ==
[2024-03-20 05:47] LABS: MANUAL DIFF FLAG NO
[2024-03-20 06:56] LABS: Anion Gap 19 (12-20); Blood Urea Nitrogen 49 mg/dL (9-16); Calcium 9.3 mg/dL (8.4-10.2); Carbon Dioxide 24 mmol/L (22-29); Chloride 97 mmol/L (96-108); Estimated Glomerular Filt Rate 10; Glucose Random 288 mg/dL (60-115); Potassium 4.2 mmol/L (3.3-5.1); Sodium 136 mmol/L (135-145)
[2024-03-20 06:58] LABS: Basophils Percent Auto 0.7 % (0-2); Eosinophils Absolute Auto 0.4 X10*3/uL (0.0-0.4); Eosinophils Percent Auto 7.7 % (0-4); Hematocrit 40.5 % (42.0-52.0); Hemoglobin 12.6 g/dl (14.0-18.0); Imm Gran Abs Auto 0.06 X10*3/uL (0.00-0.03); Imm Gran Pct Auto 1.1 % (0.0-0.4); Lymphocytes Absolute Auto 0.6 X10*3/uL (1.2-4.9); Mean Corpuscular HGB Conc 31.1 g/dl (31.0-36.0); Mean Corpuscular Hemoglobin 31.3 pg (27.0-33.0); Mean Corpuscular Volume 100.7 fL (80.0-98.0); Mean Platelet Volume 11.5 fL (9.4-12.4); Monocytes Absolute Auto 0.4 X10*3/uL (0.1-1.2); Monocytes Percent Auto 6.6 % (2-11); Neutrophils Absolute Auto 4.2 x10*3/uL (2.0-8.3); Neutrophils Percent Auto 73.9 % (45-73); Red Blood Count 4.02 X10*6/uL (4.60-5.80); Red Cell Distribution Width 15.8 % (11.0-16.0); White Blood Count 5.6 X10*3/uL (4.8-10.8)
[2024-03-20 06:59] LABS: Platelet Count 86 X10*3/uL (160-400)
== END 2024-03-20 05:57 | disposition home or self-care (01) ==
LOC: HO.MMNH3L 05:56
PROVIDERS: Visit Provider Family Medicine
DX: I12.0 Hypertensive chronic kidney disease with stage 5 chronic kidney disease or end stage renal disease (principal); E11.22 Type 2 diabetes mellitus with diabetic chronic kidney disease; N18.6 End stage renal disease
CPT/HCPCS: 36415; 80048; 85025

== ENCOUNTER 2024-03-27 05:51 | Outpatient (REF) | payer MEDICARE, MEDICAID, SELFPAY ==
[2024-03-27 06:03] LABS: Basophils Percent Auto 0.6 % (0-2); Mean Corpuscular HGB Conc 31.7 g/dl (31.0-36.0); PLT CLUMP 1; SCAN SMEAR FLAG 1
[2024-03-27 06:05] LABS: Eosinophils Absolute Auto 0.4 X10*3/uL (0.0-0.4); Eosinophils Percent Auto 6.3 % (0-4); Hematocrit 39.4 % (42.0-52.0); Hemoglobin 12.5 g/dl (14.0-18.0); Imm Gran Abs Auto 0.04 X10*3/uL (0.00-0.03); Imm Gran Pct Auto 0.6 % (0.0-0.4); Lymphocytes Absolute Auto 0.9 X10*3/uL (1.2-4.9); Lymphocytes Percent Auto 14.2 % (20-40); Mean Corpuscular Hemoglobin 31.5 pg (27.0-33.0); Mean Corpuscular Volume 99.2 fL (80.0-98.0); Mean Platelet Volume 11.9 fL (9.4-12.4); Monocytes Absolute Auto 0.5 X10*3/uL (0.1-1.2); Monocytes Percent Auto 7.4 % (2-11); Neutrophils Absolute Auto 4.5 x10*3/uL (2.0-8.3); Neutrophils Percent Auto 70.9 % (45-73); Red Blood Count 3.97 X10*6/uL (4.60-5.80); Red Cell Distribution Width 15.7 % (11.0-16.0)
[2024-03-27 06:06] LABS: MANUAL DIFF FLAG NO; Platelet Count 73 X10*3/uL (160-400); White Blood Count 6.4 X10*3/uL (4.8-10.8)
[2024-03-27 06:38] LABS: Anion Gap 18 (12-20); Blood Urea Nitrogen 50 mg/dL (9-16); Calcium 9.7 mg/dL (8.4-10.2); Carbon Dioxide 28 mmol/L (22-29); Chloride 96 mmol/L (96-108); Glucose Random 167 mg/dL (60-115); Sodium 138 mmol/L (135-145)
[2024-03-27 07:03] LABS: Estimated Glomerular Filt Rate 12
== END 2024-03-27 05:52 | disposition home or self-care (01) ==
LOC: HO.MMNH3L 05:51
PROVIDERS: Visit Provider Hospitalist
DX: I12.0 Hypertensive chronic kidney disease with stage 5 chronic kidney disease or end stage renal disease (principal); E11.22 Type 2 diabetes mellitus with diabetic chronic kidney disease; N18.6 End stage renal disease
CPT/HCPCS: 36415; 80048; 85025

== ENCOUNTER 2024-04-03 06:13 | Outpatient (REF) | payer MEDICARE, MEDICAID, SELFPAY ==
[2024-04-03 06:19] LABS: Basophils Percent Auto 0.4 % (0-2); Eosinophils Absolute Auto 0.5 X10*3/uL (0.0-0.4); Eosinophils Percent Auto 9.5 % (0-4); Hematocrit 39.4 % (42.0-52.0); Hemoglobin 12.6 g/dl (14.0-18.0); Imm Gran Abs Auto 0.05 X10*3/uL (0.00-0.03); Imm Gran Pct Auto 0.9 % (0.0-0.4); Lymphocytes Absolute Auto 0.7 X10*3/uL (1.2-4.9); Lymphocytes Percent Auto 11.8 % (20-40); Mean Corpuscular Hemoglobin 31.4 pg (27.0-33.0); Mean Corpuscular Volume 98.3 fL (80.0-98.0); Mean Platelet Volume 10.3 fL (9.4-12.4); Monocytes Absolute Auto 0.5 X10*3/uL (0.1-1.2); Monocytes Percent Auto 8.2 % (2-11); Neutrophils Absolute Auto 3.9 x10*3/uL (2.0-8.3); Neutrophils Percent Auto 69.2 % (45-73); Red Blood Count 4.01 X10*6/uL (4.60-5.80); Red Cell Distribution Width 15.6 % (11.0-16.0)
[2024-04-03 06:20] LABS: Platelet Count 95 X10*3/uL (160-400); White Blood Count 5.6 X10*3/uL (4.8-10.8)
[2024-04-03 06:43] LABS: Anion Gap 18 (12-20); Blood Urea Nitrogen 69 mg/dL (9-16); Calcium 9.7 mg/dL (8.4-10.2); Carbon Dioxide 28 mmol/L (22-29); Chloride 96 mmol/L (96-108); Estimated Glomerular Filt Rate 8; Glucose Random 158 mg/dL (60-115); Potassium 5.1 mmol/L (3.3-5.1); Sodium 137 mmol/L (135-145)
== END 2024-04-03 06:14 | disposition home or self-care (01) ==
LOC: HO.MMNH3L 06:13
PROVIDERS: Visit Provider Hospitalist
DX: N18.6 End stage renal disease (principal); E11.22 Type 2 diabetes mellitus with diabetic chronic kidney disease; I10 Essential (primary) hypertension
CPT/HCPCS: 36415; 80048; 85025

== ENCOUNTER 2024-04-10 05:46 | Outpatient (REF) | payer MEDICARE, MEDICAID, SELFPAY ==
[2024-04-10 05:33] LABS: MANUAL DIFF FLAG NO
[2024-04-10 05:50] LABS: Basophils Percent Auto 0.6 % (0-2); Eosinophils Absolute Auto 0.5 X10*3/uL (0.0-0.4); Eosinophils Percent Auto 7.3 % (0-4); Hematocrit 38.6 % (42.0-52.0); Hemoglobin 12.9 g/dl (14.0-18.0); Imm Gran Abs Auto 0.06 X10*3/uL (0.00-0.03); Imm Gran Pct Auto 0.9 % (0.0-0.4); Lymphocytes Absolute Auto 0.6 X10*3/uL (1.2-4.9); Mean Corpuscular HGB Conc 33.4 g/dl (31.0-36.0); Mean Corpuscular Volume 95.8 fL (80.0-98.0); Mean Platelet Volume 11.4 fL (9.4-12.4); Monocytes Absolute Auto 0.4 X10*3/uL (0.1-1.2); Monocytes Percent Auto 6.8 % (2-11); Neutrophils Absolute Auto 4.9 x10*3/uL (2.0-8.3); Neutrophils Percent Auto 75.4 % (45-73); Platelet Count 92 X10*3/uL (160-400); Red Blood Count 4.03 X10*6/uL (4.60-5.80); White Blood Count 6.5 X10*3/uL (4.8-10.8)
[2024-04-10 08:09] LABS: Anion Gap 26 (12-20); Blood Urea Nitrogen 88 mg/dL (9-16); Calcium 9.4 mg/dL (8.4-10.2); Carbon Dioxide 23 mmol/L (22-29); Chloride 89 mmol/L (96-108); Estimated Glomerular Filt Rate 8; Glucose Random 386 mg/dL (60-115); Potassium 5.5 mmol/L (3.3-5.1); Sodium 132 mmol/L (135-145)
== END 2024-04-10 05:47 | disposition home or self-care (01) ==
LOC: HO.MMNH3L 05:46
PROVIDERS: Visit Provider Family Medicine
DX: I12.0 Hypertensive chronic kidney disease with stage 5 chronic kidney disease or end stage renal disease (principal); E11.22 Type 2 diabetes mellitus with diabetic chronic kidney disease; N18.6 End stage renal disease
CPT/HCPCS: 36415; 80048; 85025

== ENCOUNTER 2024-04-17 07:01 | Outpatient (REF) | payer MEDICARE, SELFPAY ==
[2024-04-17 06:18] LABS: MANUAL DIFF FLAG NO
[2024-04-17 07:10] LABS: Basophils Percent Auto 0.6 % (0-2); Eosinophils Absolute Auto 0.6 X10*3/uL (0.0-0.4); Eosinophils Percent Auto 8.4 % (0-4); Hematocrit 40.4 % (42.0-52.0); Imm Gran Abs Auto 0.05 X10*3/uL (0.00-0.03); Imm Gran Pct Auto 0.7 % (0.0-0.4); Lymphocytes Absolute Auto 0.8 X10*3/uL (1.2-4.9); Lymphocytes Percent Auto 10.9 % (20-40); Mean Corpuscular HGB Conc 32.2 g/dl (31.0-36.0); Mean Corpuscular Hemoglobin 31.6 pg (27.0-33.0); Mean Corpuscular Volume 98.1 fL (80.0-98.0); Mean Platelet Volume 9.6 fL (9.4-12.4); Monocytes Absolute Auto 0.6 X10*3/uL (0.1-1.2); Monocytes Percent Auto 7.8 % (2-11); Neutrophils Absolute Auto 5.1 x10*3/uL (2.0-8.3); Neutrophils Percent Auto 71.6 % (45-73); Red Blood Count 4.12 X10*6/uL (4.60-5.80); Red Cell Distribution Width 14.8 % (11.0-16.0); White Blood Count 7.1 X10*3/uL (4.8-10.8)
[2024-04-17 07:11] LABS: Platelet Count 90 X10*3/uL (160-400)
[2024-04-17 07:53] LABS: Anion Gap 18 (12-20); Blood Urea Nitrogen 52 mg/dL (9-16); Calcium 9.4 mg/dL (8.4-10.2); Carbon Dioxide 27 mmol/L (22-29); Chloride 95 mmol/L (96-108); Glucose Random 155 mg/dL (60-115); Sodium 136 mmol/L (135-145)
[2024-04-17 08:04] LABS: Estimated Glomerular Filt Rate 11
== END 2024-04-17 07:02 | disposition home or self-care (01) ==
LOC: HO.MMNH3L 07:01
PROVIDERS: Visit Provider Family Medicine
DX: I12.0 Hypertensive chronic kidney disease with stage 5 chronic kidney disease or end stage renal disease (principal); E11.22 Type 2 diabetes mellitus with diabetic chronic kidney disease; N18.6 End stage renal disease
CPT/HCPCS: 36415; 80048; 85025

== ENCOUNTER 2024-04-24 05:51 | Outpatient (REF) | payer MEDICARE, MEDICAID, SELFPAY ==
[2024-04-24 05:35] LABS: MANUAL DIFF FLAG NO
[2024-04-24 05:59] LABS: Basophils Percent Auto 0.5 % (0-2); Eosinophils Absolute Auto 0.4 X10*3/uL (0.0-0.4); Eosinophils Percent Auto 6.9 % (0-4); Hematocrit 37.7 % (42.0-52.0); Imm Gran Abs Auto 0.03 X10*3/uL (0.00-0.03); Imm Gran Pct Auto 0.5 % (0.0-0.4); Lymphocytes Absolute Auto 0.6 X10*3/uL (1.2-4.9); Lymphocytes Percent Auto 10.1 % (20-40); Mean Corpuscular HGB Conc 31.8 g/dl (31.0-36.0); Mean Corpuscular Hemoglobin 31.4 pg (27.0-33.0); Mean Corpuscular Volume 98.7 fL (80.0-98.0); Mean Platelet Volume 10.5 fL (9.4-12.4); Monocytes Absolute Auto 0.5 X10*3/uL (0.1-1.2); Monocytes Percent Auto 8.5 % (2-11); Neutrophils Absolute Auto 4.2 x10*3/uL (2.0-8.3); Neutrophils Percent Auto 73.5 % (45-73); Red Blood Count 3.82 X10*6/uL (4.60-5.80); Red Cell Distribution Width 15.1 % (11.0-16.0); White Blood Count 5.8 X10*3/uL (4.8-10.8)
[2024-04-24 06:00] LABS: Platelet Count 95 X10*3/uL (160-400)
[2024-04-24 07:15] LABS: Anion Gap 15 (12-20); Blood Urea Nitrogen 58 mg/dL (9-16); Calcium 9.1 mg/dL (8.4-10.2); Carbon Dioxide 29 mmol/L (22-29); Chloride 95 mmol/L (96-108); Glucose Random 251 mg/dL (60-115); Potassium 4.3 mmol/L (3.3-5.1); Sodium 135 mmol/L (135-145)
[2024-04-24 07:42] LABS: Estimated Glomerular Filt Rate 12
== END 2024-04-24 05:52 | disposition home or self-care (01) ==
LOC: HO.MMNH3L 05:51
PROVIDERS: Visit Provider Family Medicine
DX: I12.0 Hypertensive chronic kidney disease with stage 5 chronic kidney disease or end stage renal disease (principal); E11.22 Type 2 diabetes mellitus with diabetic chronic kidney disease; N18.6 End stage renal disease
CPT/HCPCS: 36415; 80048; 85025

== ENCOUNTER 2024-05-01 05:46 | Outpatient (REF) | payer MEDICARE, MEDICAID, SELFPAY ==
[2024-05-01 05:46] LABS: MANUAL DIFF FLAG NO
[2024-05-01 06:24] LABS: Basophils Percent Auto 0.7 % (0-2); Eosinophils Absolute Auto 0.5 X10*3/uL (0.0-0.4); Eosinophils Percent Auto 8.3 % (0-4); Hematocrit 38.1 % (42.0-52.0); Hemoglobin 12.4 g/dl (14.0-18.0); Imm Gran Abs Auto 0.05 X10*3/uL (0.00-0.03); Imm Gran Pct Auto 0.8 % (0.0-0.4); Lymphocytes Absolute Auto 0.7 X10*3/uL (1.2-4.9); Lymphocytes Percent Auto 11.4 % (20-40); Mean Corpuscular HGB Conc 32.5 g/dl (31.0-36.0); Mean Corpuscular Volume 98.4 fL (80.0-98.0); Mean Platelet Volume 9.5 fL (9.4-12.4); Monocytes Absolute Auto 0.5 X10*3/uL (0.1-1.2); Monocytes Percent Auto 8.3 % (2-11); Neutrophils Absolute Auto 4.2 x10*3/uL (2.0-8.3); Neutrophils Percent Auto 70.5 % (45-73); Platelet Count 79 X10*3/uL (160-400); Red Blood Count 3.87 X10*6/uL (4.60-5.80); Red Cell Distribution Width 15.4 % (11.0-16.0)
[2024-05-01 06:46] LABS: Estimated Average Glucose 197 mg/dL; Hemoglobin A1c % 8.5 % (<6.0)
[2024-05-01 06:53] LABS: Anion Gap 19 (12-20); Blood Urea Nitrogen 57 mg/dL (9-16); Calcium 8.7 mg/dL (8.4-10.2); Carbon Dioxide 23 mmol/L (22-29); Chloride 95 mmol/L (96-108); Estimated Glomerular Filt Rate 10; Glucose Random 80 mg/dL (60-115); Potassium 4.4 mmol/L (3.3-5.1); Sodium 133 mmol/L (135-145)
== END 2024-05-01 05:47 | disposition home or self-care (01) ==
LOC: HO.MMNH3L 05:46
PROVIDERS: Visit Provider Family Medicine
DX: I12.0 Hypertensive chronic kidney disease with stage 5 chronic kidney disease or end stage renal disease (principal); E11.22 Type 2 diabetes mellitus with diabetic chronic kidney disease; N18.6 End stage renal disease
CPT/HCPCS: 36415; 80048; 83036; 85025

== ENCOUNTER 2024-05-08 06:03 | Outpatient (REF) | payer MEDICARE, MEDICAID, SELFPAY ==
[2024-05-08 06:03] LABS: MANUAL DIFF FLAG NO
[2024-05-08 06:41] LABS: Basophils Percent Auto 0.7 % (0-2); Eosinophils Absolute Auto 0.4 X10*3/uL (0.0-0.4); Eosinophils Percent Auto 7.3 % (0-4); Hematocrit 38.6 % (42.0-52.0); Hemoglobin 12.1 g/dl (14.0-18.0); Imm Gran Abs Auto 0.04 X10*3/uL (0.00-0.03); Imm Gran Pct Auto 0.7 % (0.0-0.4); Lymphocytes Absolute Auto 0.6 X10*3/uL (1.2-4.9); Lymphocytes Percent Auto 9.9 % (20-40); Mean Corpuscular HGB Conc 31.3 g/dl (31.0-36.0); Mean Corpuscular Hemoglobin 31.6 pg (27.0-33.0); Mean Corpuscular Volume 100.8 fL (80.0-98.0); Mean Platelet Volume 10.9 fL (9.4-12.4); Monocytes Absolute Auto 0.4 X10*3/uL (0.1-1.2); Monocytes Percent Auto 6.1 % (2-11); Neutrophils Absolute Auto 4.6 x10*3/uL (2.0-8.3); Neutrophils Percent Auto 75.3 % (45-73); Red Blood Count 3.83 X10*6/uL (4.60-5.80); Red Cell Distribution Width 15.5 % (11.0-16.0); White Blood Count 6.1 X10*3/uL (4.8-10.8)
[2024-05-08 06:42] LABS: Platelet Count 89 X10*3/uL (160-400)
[2024-05-08 07:01] LABS: Anion Gap 21 (12-20); Blood Urea Nitrogen 40 mg/dL (9-16); Calcium 9.3 mg/dL (8.4-10.2); Carbon Dioxide 26 mmol/L (22-29); Chloride 96 mmol/L (96-108); Glucose Random 175 mg/dL (60-115); Potassium 3.9 mmol/L (3.3-5.1); Sodium 139 mmol/L (135-145)
[2024-05-08 07:44] LABS: Estimated Glomerular Filt Rate 12
== END 2024-05-08 06:04 | disposition home or self-care (01) ==
LOC: HO.MMNH3L 06:03
PROVIDERS: Visit Provider Family Medicine
DX: I12.0 Hypertensive chronic kidney disease with stage 5 chronic kidney disease or end stage renal disease (principal); E11.22 Type 2 diabetes mellitus with diabetic chronic kidney disease; N18.6 End stage renal disease
CPT/HCPCS: 36415; 80048; 85025

== ENCOUNTER 2024-05-15 05:52 | Outpatient (REF) | payer MEDICARE, MEDICAID, SELFPAY ==
[2024-05-15 05:47] LABS: MANUAL DIFF FLAG NO
[2024-05-15 06:34] LABS: Anion Gap 20 (12-20); Blood Urea Nitrogen 74 mg/dL (9-16); Calcium 9.3 mg/dL (8.4-10.2); Carbon Dioxide 23 mmol/L (22-29); Chloride 95 mmol/L (96-108); Estimated Glomerular Filt Rate 8; Glucose Random 178 mg/dL (60-115); Potassium 4.3 mmol/L (3.3-5.1); Sodium 134 mmol/L (135-145)
[2024-05-15 07:06] LABS: Basophils Percent Auto 0.6 % (0-2); Eosinophils Absolute Auto 0.5 X10*3/uL (0.0-0.4); Eosinophils Percent Auto 7.9 % (0-4); Hematocrit 37.5 % (42.0-52.0); Hemoglobin 12.5 g/dl (14.0-18.0); Imm Gran Abs Auto 0.05 X10*3/uL (0.00-0.03); Imm Gran Pct Auto 0.7 % (0.0-0.4); Lymphocytes Absolute Auto 0.7 X10*3/uL (1.2-4.9); Lymphocytes Percent Auto 9.8 % (20-40); Mean Corpuscular HGB Conc 33.3 g/dl (31.0-36.0); Mean Corpuscular Hemoglobin 32.7 pg (27.0-33.0); Mean Corpuscular Volume 98.2 fL (80.0-98.0); Monocytes Absolute Auto 0.5 X10*3/uL (0.1-1.2); Monocytes Percent Auto 7.7 % (2-11); Neutrophils Percent Auto 73.3 % (45-73); Red Blood Count 3.82 X10*6/uL (4.60-5.80); Red Cell Distribution Width 15.2 % (11.0-16.0); White Blood Count 6.8 X10*3/uL (4.8-10.8)
[2024-05-15 07:09] LABS: Platelet Count 86 X10*3/uL (160-400)
== END 2024-05-15 05:53 | disposition home or self-care (01) ==
LOC: HO.MMNH3L 05:52
PROVIDERS: Visit Provider Hospitalist
DX: I12.0 Hypertensive chronic kidney disease with stage 5 chronic kidney disease or end stage renal disease (principal); E11.22 Type 2 diabetes mellitus with diabetic chronic kidney disease; N18.6 End stage renal disease
CPT/HCPCS: 36415; 80048; 85025